=== PATIENT | male | born 1930 | race Caucasian/White ===

== ENCOUNTER 2017-07-09 09:12 | Inpatient (IN) | payer MEDICARE, OTHER ==
[~2017-07-09] VITALS: Ht 165.1 cm; Wt 57.0 kg
[2017-07-09] VITALS (15 sets, daily range): BP systolic 78–119; BP diastolic 47–59; PULSE 57–173; RESP 16–24; TEMP 97.6–98; O2SAT 98–100
[2017-07-09] MEDS ORDERED: AMIODARONE HCL 150 MG/3 ML VIAL ONE (09:22)
[2017-07-09] MEDS: AMIODARONE HCL 150 MG/3 ML VIAL ONE (09:23)
[2017-07-09] MEDS ORDERED: ETOMIDATE 40 MG/20 ML VIAL ONE (09:26)
[2017-07-09] MEDS ORDERED: VECURONIUM BROMIDE 10 MG VIAL ONE (09:27)
[2017-07-09] MEDS ORDERED: SODIUM CHLOR 0.9% 1000 ML INJ 1,000 ML IV ONE (09:29)
[2017-07-09] MEDS ORDERED: SODIUM CHLORIDE 0.9% FLUSH 10 ML FLUSH IVF PRN ×2 (09:30→10:30)
[2017-07-09] MEDS: AMIODARONE INJ 150 MG in DEXTROSE 5% IN WATER 100ML INJ 97 ML IV ONE ×4 (09:35→10:21)
--- NOTE | 2017-07-09 09:36 | PD ---
HPI Chief Complaint: Cardiac Complaint Time Seen by Provider: 09:29 Travel History International Travel<30 days: No Contact w/Intl Traveler<30days: No Traveled to known affect area: No History of Present Illness HPI 86-year-old fdc patient presents to the ER today brought in by EMS, apparently has been complaining of palpitations, shaking episodes, and EMS found that he was going into SVTs, had initially give him adenosine without significant improvement, cardioverted him with some improvement. However, he continues to go into SVTs in the ER the rate of 180 bpm. An additional cardioversion was done in the ER. However, he continues to have intermittent episodes and amiodarone 150 was given in the ER with improvement of dysrhythmias. After the amiodarone, patient was able to talk to me and states he is feeling better. Modifying Factors: None Associated Signs & Symptoms: Tachydysrhythmia Risk Factors: Elderly PFSH Past Medical History Medical History: Unable to Obtain Arthritis: No Asthma: No Autoimmune Disease: No Heart Rhythm Problems: No Cardiovascular Problems: No High Cholesterol: No Chest Pain: No Congestive Heart Failure: No COPD: No Cerebrovascular Accident: No GERD: No Headaches: No Hepatitis: No Hiatal Hernia: No Hypertension: No Neurologic: No Respiratory: No Myocardial Infarction: No Seizures: No Sleep Apnea: No Ulcer: No Past Surgical History Surgical History: Unable to Obtain Abdominal Surgery: No AICD: No Cardiac Surgery: No Ear Surgery: No Endocrine Surgery: No Eye Surgery: No Genitourinary Surgery: No Gynecologic Surgery: No Oral Surgery: No Pacemaker: No Thoracic Surgery: No Social History Alcohol Use: No Tobacco Use: No Substance Use: No Allergies-Medications (Allergen,Severity, Reaction): Coded Allergies: No Known Allergies (Verified Allergy, Severe, 07/09/17) Reported Meds & Prescriptions Reported Meds & Active Scripts Active Reported Hydrocodone-Acetaminophen 5-300 Mg Tab 1 Tab PO Q6H PRN Sulfamethoxazole-Trimethoprim 800-160 Mg Tab 1 Tab PO BID Amoxicillin 500 Mg Cap 500 Mg PO Q12HR Ondansetron (Ondansetron HCl) 4 Mg Tab 4 Mg PO Q6HR PRN Feosol (Ferrous Sulfate) 325 Mg (65 Mg Iron) Tab 650 Mg PO BIDPC Levothyroxine (Levothyroxine Sodium) 25 Mcg Tab 25 Mcg PO DAILY Dutasteride-Tamsulosin 0.5-0.4 Mg Cap 1 Cap PO DAILY Metoprolol Tartrate 25 Mg Tab 12.5 Mg PO BID Atorvastatin (Atorvastatin Calcium) 10 Mg Tab 10 Mg PO HS Midodrine 10 Mg Tab 10 Mg PO BID Imatinib (Imatinib Mesylate) 100 Mg Tab 400 Mg PO DAILY Colace (Docusate Sodium) 100 Mg Capsule 100 Mg PO BID PRN Clopidogrel (Clopidogrel Bisulfate) 75 Mg Tab 75 Mg PO DAILY Review of Systems ROS Limitations: Altered Mental Status (Status post Versed by EMS) Physical Exam Narrative GENERAL: Well-developed elderly white male patient currently and moderate distress, mildly disoriented but arousable after medications, able to answer some question although it is uncertain whether he is a reliable historian. SKIN: Focused skin assessment warm/dry. HEAD: Atraumatic. Normocephalic. EYES: Pupils equal and round. No scleral icterus. No injection or drainage. ENT: No nasal bleeding or discharge. Mucous membranes pink and moist. NECK: Trachea midline. No JVD. CARDIOVASCULAR: Fast and regular. RESPIRATORY: No accessory muscle use. Clear to auscultation. Breath sounds equal bilaterally. GASTROINTESTINAL: Abdomen soft, non-tender, nondistended. Hepatic and splenic margins not palpable. MUSCULOSKELETAL: No obvious deformities. No clubbing. No cyanosis. No edema. NEUROLOGICAL: Awake and mildly lethargic. No obvious cranial nerve deficits. Motor grossly within normal limits. Normal speech. PSYCHIATRIC: Appropriate mood and affect; insight and judgment normal. Data Data Last Documented VS Vital Signs Date Time Temp Pulse Resp B/P (MAP) Pulse Ox O2 Delivery O2 Flow Rate FiO2 07/09/17 10:16 18 100 Nasal Cannula 4.00 07/09/17 09:23 166 76/37 Orders Orders Amiodarone Inj (Cordarone Inj) (07/09/17 09:22) Amiodarone Inj (Cordarone Inj) (07/09/17 09:23) Etomidate Inj (Amidate Inj) (07/09/17 09:26) Vecuronium 10 Mg Inj (Norcuron 10 Mg Inj (07/09/17 09:27) Complete Blood Count With Diff (07/09/17 09:29) Comprehensive Metabolic Panel (07/09/17 09:29) Magnesium (Mg) (07/09/17 09:29) Ckmb (Isoenzyme) Profile (07/09/17:29) Troponin I (07/09/17:29) Act Partial Throm Time (Ptt) (07/09/17:) Prothrombin Time / Inr (Pt) (07/09/17:) Chest, Single Ap (07/09/17:) Blood Glucose (07/09/17:29) Ecg Monitoring (07/09/17:) Iv Access Insert/Monitor (07/09/17) Oximetry (07/09/17:) Sodium Chloride 0.9% Flush (Ns Flush) (07/09/17:30) Sodium Chlor 0.9% 1000 Ml Inj (Ns 1000 M (07/09/17:) Arterial Blood Gas (Abg) (07/09/17:28) Dextrose 5% In Wate... W/Amiodarone Inj (07/09/17 10:21) Sodium Chloride 0.9% Flush (Ns Flush) (07/09/17 10:30) Admit Order (Ed Use Only) (07/09/17 10:43) CKMB (07/09/17 09:30) CKMB% (07/09/17:30) Labs Laboratory Tests Test 07/09/1707/09/17 Blood Gas Puncture Site LT RADIAL Blood Gas Patient Temperature 98.6 Blood Gas HCO3 22 mmol/L Blood Gas Base Excess -2.1 mmol/L Blood Gas Oxygen Saturation 98 % Arterial Blood pH 7.40 Arterial Blood Partial Pressure CO2 37 mmHg Arterial Blood Partial Pressure O2 395 mmHG Arterial Blood Oxygen Content 15.1 Vol % Arterial Blood Carboxyhemoglobin 0.9 % Arterial Blood Methemoglobin 0.8 % Blood Gas Hemoglobin 10.2 G/DL Oxygen Delivery Device Non-Rebreathing Mask Blood Gas Liter Flow 15 L/M White Blood Count 6.0 TH/MM3 Red Blood Count 3.27 MIL/MM3 Hemoglobin 11.0 GM/DL Hematocrit 32.3 % Mean Corpuscular Volume 98.8 FL Mean Corpuscular Hemoglobin 33.7 PG Mean Corpuscular Hemoglobin Concent 34.1 % Red Cell Distribution Width 17.6 % Platelet Count 178 TH/MM3 Mean Platelet Volume 8.8 FL Neutrophils (%) (Auto) 58.7 % Lymphocytes (%) (Auto) 22.7 % Monocytes (%) (Auto) 10.2 % Eosinophils (%) (Auto) 7.7 % Basophils (%) (Auto) 0.7 % Neutrophils # (Auto) 3.5 TH/MM3 Lymphocytes # (Auto) 1.4 TH/MM3 Monocytes # (Auto) 0.6 TH/MM3 Eosinophils # (Auto) 0.5 TH/MM3 Basophils # (Auto) 0.0 TH/MM3 CBC Comment DIFF FINAL Differential Comment Prothrombin Time 11.5 SEC Prothromb Time International Ratio 1.1 RATIO Activated Partial Thromboplast Time 25.0 SEC Blood Urea Nitrogen 16 MG/DL Creatinine 1.85 MG/DL Random Glucose 111 MG/DL Total Protein 5.8 GM/DL Albumin 2.6 GM/DL Calcium Level 8.2 MG/DL Magnesium Level 2.0 MG/DL Alkaline Phosphatase 118 U/L Aspartate Amino Transf (AST/SGOT) 67 U/L Alanine Aminotransferase (ALT/SGPT) 57 U/L Total Bilirubin 0.4 MG/DL Sodium Level 138 MEQ/L Potassium Level 3.7 MEQ/L Chloride Level 103 MEQ/L Carbon Dioxide Level 25.0 MEQ/L Anion Gap 10 MEQ/L Estimat Glomerular Filtration Rate 35 ML/MIN Total Creatine Kinase 190 U/L Creatine Kinase MB 4.5 NG/ML Troponin I 0.04 NG/ML MDM Medical Decision Making Medical Screen Exam Complete: Yes Emergency Medical Condition: Yes Medical Record Reviewed: Yes Interpretation(s) Initial EKG shows a narrow complex tachycardia at a rate of 170 bpm. No signs of acute ST elevations or depressions. Secondary EKG shows A. fib with rapid ventricular response at 100 bpm. No signs of acute ST elevations or depressions. Laboratory Tests Test 07/09/17 09:28 07/09/17 09:30 Blood Gas Base Excess -2.1 mmol/L (-2-2) Arterial Blood Partial Pressure CO2 37 mmHg (38-42) Arterial Blood Partial Pressure O2 395 mmHG (61-120) Blood Gas Hemoglobin 10.2 G/DL (12.0-16.0) Red Blood Count 3.27 MIL/MM3 (4.50-5.90) Hemoglobin 11.0 GM/DL (13.0-17.0) Hematocrit 32.3 % (39.0-51.0) Red Cell Distribution Width 17.6 % (11.6-17.2) Monocytes (%) (Auto) 10.2 % (0.0-8.0) Eosinophils (%) (Auto) 7.7 % (0.0-4.0) Eosinophils # (Auto) 0.5 TH/MM3 (0-0.4) Creatinine 1.85 MG/DL (0.60-1.30) Random Glucose 111 MG/DL (74-106) Total Protein 5.8 GM/DL (6.4-8.2) Albumin 2.6 GM/DL (3.4-5.0) Calcium Level 8.2 MG/DL (8.5-10.1) Alkaline Phosphatase 118 U/L (45-117) Aspartate Amino Transf (AST/SGOT) 67 U/L (15-37) Estimat Glomerular Filtration Rate 35 ML/MIN (>89) Last 24 hours Impressions Chest X-Ray 07/09/17 0936 Signed Impressions: Service Date/Time: Sunday, July 09, 2017 09:33 - CONCLUSION: Interstitial densities left upper lobe and left lower lobe could be chronic Ronni East MD Differential Diagnosis Tachydysrhythmia: Rule out electrolyte abnormalities versus sepsis versus dehydration Narrative Course After amiodarone, patient's heart rate was more stable. At this point, case was discussed with Dr. Prakash of intensive care unit to be admitted to ICU. Labs did not show significant metabolic issues. I have discussed the findings with family and they state understanding. Aggregate critical care time was 35 minutes. Time to perform other separately billable procedures was not included in the critical care time. My time did not include minutes spent treating any other patients simultaneously or on activities that did not directly contribute to the patient's treatment. The services I provided to this patient were to treat and/or prevent clinically significant deterioration that could result in: Tachydysrhythmia, cardiopulmonary arrest, respiratory arrest, I provided critical care services requiring my management, as noted below: Chart data review, documentation time, medication orders and management, vital sign assessments/reviewing monitor data, ordering and reviewing lab tests, ordering and interpreting/reviewing x-rays and diagnostic studies, care of the patient and discussion of the patient with the admitting physicians. Diagnosis Primary Impression: Tachyarrhythmia Admitting Information Admitting Physician Requests: it Mitchell Gipson MD Jul 09, 2017 09:36
--- NOTE | 2017-07-09 09:57 | RADRPT ---
EXAM DATE/TIME: 07/09/2017 09:33 [facility] COMPARISON: No previous studies available for comparison. INDICATIONS : Palpitations, irregular heart beat. MEDICAL HISTORY : none known SURGICAL HISTORY : none known ENCOUNTER: Initial ACUITY: 1 day PAIN SCORE: Non-responsive. LOCATION: Bilateral chest FINDINGS: A single view of the chest demonstrates interstitial seen in left upper lobe and left lower lobe. Loo p recorder device. Diminished lung volumes. The cardiomediastinal contours are unremarkable. Osseous structures are intact. CONCLUSION: Interstitial densities left upper lobe and left lower lobe could be chronic Ronni East MD on July 09, 2017 at 9:52 Board Certified Radiologist. This report was verified electronically.
[2017-07-09] MEDS ORDERED: METO25TA3 PO (10:36)
[2017-07-09] MEDS ORDERED: DUTA1CAP PO (10:36)
[2017-07-09] MEDS ORDERED: MIDO10TA PO (10:36)
[2017-07-09] MEDS ORDERED: LEVO25TA4 PO (10:36)
[2017-07-09] MEDS ORDERED: COLA100C5 PO (10:36)
[2017-07-09] MEDS ORDERED: ATOR10TA15 PO (10:36)
[2017-07-09] MEDS ORDERED: ONDA4TAB15 PO (10:36)
[2017-07-09] MEDS ORDERED: CLOP75TA PO (10:36)
[2017-07-09] MEDS ORDERED: FERR200T PO (10:36)
[2017-07-09] MEDS ORDERED: IMAT1TAB PO (10:36)
[2017-07-09] MEDS ORDERED: SULF1TAB23 PO (10:36)
[2017-07-09] MEDS ORDERED: AMOX500C PO (10:36)
[2017-07-09] MEDS ORDERED: HYDR-4107 PO (10:36)
[2017-07-09 10:40] LABS: AUTOMATED NEUTROPHIL # 3.5 TH/MM3 (1.8-7.7); BASOPHIL % 0.7 % (0.0-2.0); EOSINOPHIL # 0.5 TH/MM3 (0-0.4); EOSINOPHIL % 7.7 % (0.0-4.0); HEMATOCRIT 32.3 % (39.0-51.0); LYMPH % 22.7 % (9.0-44.0); LYMPHOCYTE # 1.4 TH/MM3 (1.0-4.8); MEAN CELL VOLUME 98.8 FL (80.0-100.0); MEAN CORPUSCULAR HEMOGLOBIN 33.7 PG (27.0-34.0); MEAN CORPUSCULAR HGB CONC 34.1 % (32.0-36.0); MEAN PLATELET VOLUME 8.8 FL (7.0-11.0); MONO % 10.2 % (0.0-8.0); MONOCYTE # 0.6 TH/MM3 (0-0.9); NEUT % 58.7 % (16.0-70.0); PLATELET COUNT 178 TH/MM3 (150-450); RED BLOOD COUNT 3.27 MIL/MM3 (4.50-5.90); RED CELL DISTRIBUTION WIDTH 17.6 % (11.6-17.2)
[2017-07-09] MEDS ORDERED: RESP: ALBUTEROL 2.5 MG/IPRATROPIUM 0.5 MG NEB (PRN) INH (10:45)
[2017-07-09] MEDS ORDERED: MISCELLANEOUS NURSING INFORMATION XX SCH (10:45)
[2017-07-09] MEDS ORDERED: CHLORHEXIDINE GLUCONATE 2 % 1 PACK (2 CLOTHS) TOP PRN (10:45)
[2017-07-09] MEDS ORDERED: BISACODYL 10 MG SUPP RECTAL PRN (10:45)
[2017-07-09] MEDS ORDERED: MAGNESIUM HYDROXIDE SUSP 30 ML CUP PO PRN (10:45)
[2017-07-09] MEDS ORDERED: LACTULOSE SYRUP 20 GM/30 ML CUP PO PRN (10:45)
[2017-07-09] MEDS ORDERED: ACETAMINOPHEN 325 MG TAB PO PRN (10:45)
[2017-07-09] MEDS ORDERED: SENNOSIDES 8.6 MG TAB PO PRN (10:45)
[2017-07-09 10:55] LABS: INTERNATIONAL NORMALIZED RATIO 1.1 RATIO; PROTHROMBIN TIME - PATIENT 11.5 SEC (9.8-11.6)
[2017-07-09 11:02] LABS: ALBUMIN 2.6 GM/DL (3.4-5.0); ALT (GPT) 57 U/L (12-78); AST (GOT) 67 U/L (15-37); BLOOD UREA NITROGEN 16 MG/DL (7-18); CALCIUM 8.2 MG/DL (8.5-10.1); CHLORIDE 103 MEQ/L (98-107); CREATININE 1.85 MG/DL (0.60-1.30); GLOMERULAR FILTRATION RATE 35 ML/MIN (>89); GLUCOSE,RANDOM 111 MG/DL (74-106); SODIUM (NA) 138 MEQ/L (136-145)
[2017-07-09 11:11] LABS: ALKALINE PHOSPHATASE 118 U/L (45-117); TOTAL BILIRUBIN ADULT 0.4 MG/DL (0.2-1.0); TOTAL PROTEIN 5.8 GM/DL (6.4-8.2); TROPONIN I 0.04 NG/ML (0.02-0.05)
[2017-07-09] MEDS ORDERED: PILL SPLITTER OTHER PRN (11:30)
[2017-07-09] MEDS: SODIUM CHLOR 0.9% 1000 ML INJ 1,000 ML IV SCH (12:00)
[2017-07-09] MEDS: AMIODARONE INJ 450 MG in SODIUM CHLOR 0.9% (EXCEL) INJ 250 ML IV PRN ×2 (13:10→22:06)
--- NOTE | 2017-07-09 13:26 | HHI.HP ---
HPI Service Critical Care Medicine Primary Care Physician Lizzeth Garcia MD Admission Diagnosis Tachydysrhythmia Diagnosis: Travel History International Travel<30 Days: No Contact w/Intl Traveler <30 Da: No Traveled to Known Affected Are: No History of Present Illness History of Present Illness HPI This is a 86-year-old male that presented from [facility], an assisted living facility to the ED today brought in by EMS, apparently has been complaining of palpitations, shaking episodes, and EMS found that he was going into SVTs. He received adenosine without significant improvement, cardioverted x 1 reportedly to Afib. The patient continued to revert into SVTs in the ED with the rate of 180 bpm. An additional cardioversion was done in the ER. However, he continued to have intermittent episodes and amiodarone 150mg bolus was given in the ED with improvement of dysrhythmias. Critical care medicine was consulted for management. Upon my arrival to the ED the patient was noted to be in sinus rhythm with a heart rate of 70 and a BP 107/59. Medical history obtained by patient's 2 sons at bedside revealed that the patient has had issues with heart rate control for the past 3 months with adjustments of his metoprolol medication. He is well known patient of Dr. Kumari, cardiology. Recently 1 week ago, Dr. Moreau, EPS was consulted for possible ablation. 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 The patient medical history also significant for recent diagnosis of TIAs 04/2017, and continues on aspirin and Plavix. The patient medical history also significant for leukemia currently on Gleevec and seen by Dr. Rich, recently diagnosed with hypothyroidism approximately 1 month ago and was started on Synthroid. The patient will be admitted to ICU. I contacted and discussed the case patient will be initiated on amiodarone infusion, cardiology has also been consulted History ON LICENSE OF [facility] Past Medical History Medical History: Unable to Obtain Arthritis: No Asthma: No Autoimmune Disease: No Heart Rhythm Problems: No Cardiovascular Problems: No High Cholesterol: No Chest Pain: No Congestive Heart Failure: No COPD: No Cerebrovascular Accident: No GERD: No Headaches: No Hepatitis: No Hiatal Hernia: No Hypertension: No Neurologic: No Respiratory: No Myocardial Infarction: No Seizures: No Sleep Apnea: No Ulcer: No Past Surgical History Surgical History: Unable to Obtain Abdominal Surgery: No AICD: No Cardiac Surgery: No Ear Surgery: No Endocrine Surgery: No Eye Surgery: No Genitourinary Surgery: No Gynecologic Surgery: No Oral Surgery: No Pacemaker: No Thoracic Surgery: No Social History Alcohol Use: No Tobacco Use: No Substance Use: No Allergies-Medications Allergies-Medications (Allergen,Severity, Reaction): Coded Allergies: No Known Allergies (Verified Allergy, Severe, 07/09/17) Reported Meds & Prescriptions Reported Meds & Active Scripts Active Reported Hydrocodone-Acetaminophen 5-300 Mg Tab 1 Tab PO Q6H PRN Sulfamethoxazole-Trimethoprim 800-160 Mg Tab 1 Tab PO BID Amoxicillin 500 Mg Cap 500 Mg PO Q12HR Ondansetron (Ondansetron HCl) 4 Mg Tab 4 Mg PO Q6HR PRN Feosol (Ferrous Sulfate) 325 Mg (65 Mg Iron) Tab 650 Mg PO BIDPC Levothyroxine (Levothyroxine Sodium) 25 Mcg Tab 25 Mcg PO DAILY Dutasteride-Tamsulosin 0.5-0.4 Mg Cap 1 Cap PO DAILY Metoprolol Tartrate 25 Mg Tab 12.5 Mg PO BID Atorvastatin (Atorvastatin Calcium) 10 Mg Tab 10 Mg PO HS Midodrine 10 Mg Tab 10 Mg PO BID Imatinib (Imatinib Mesylate) 100 Mg Tab 400 Mg PO DAILY Colace (Docusate Sodium) 100 Mg Capsule 100 Mg PO BID PRN Clopidogrel (Clopidogrel Bisulfate) 75 Mg Tab 75 Mg PO DAILY ROS Review of Systems ROS Limitations: Altered Mental Status (Status post Versed by EMS) Past Family Social History Allergies: Coded Allergies: No Known Allergies (Verified Allergy, Severe, 07/09/17) Past Medical History Hypertension, macular degeneration, dry eye syndrome, transient ischemic attacks , leukemia, anemia, cardiac arrhythmias, MRSA left flank wound Past Surgical History Right shoulder surgery, right ankle/foot surgery Reported Medications Reviewed Active Ordered Medications see MAR Family History Unable to obtain Social History Patient lives in assisted living facility, has 2 sons, denies EtOH, smoking or illicit drug use Physical Exam Vital Signs Vital Signs Date Time Temp Pulse Resp B/P (MAP) Pulse Ox O2 Delivery O2 Flow Rate FiO2 07/09/17 12:30 60 16 106/56 (73) 100 Room Air 07/09/17 12:00 62 18 112/59 (76) 99 Nasal Cannula 07/09/17 11:30 64 16 107/59 (75) 98 Nasal Cannula 07/09/17 11:00 64 16 103/52 (69) 100 Nasal Cannula 07/09/17 10:30 68 18 101/55 (70) 100 Nasal Cannula 07/09/17 10:16 18 100 Nasal Cannula 4.00 07/09/17 10:00 76 16 85/49 (61) 100 07/09/17 09:23 166 76/37 07/09/17 09:13 173 24 78/47 (57) 07/09/17 09:00 98 15.00 07/09/17 09:00 Nasal Cannula 4.00 Physical Exam GENERAL: This is a well-developed well-nourished chronically ill-appearing elderly gentleman. SKIN: Warm and dry. Dressing left flank pre-existing wound, appearance stage I HEAD: Atraumatic. Normocephalic. EYES: Pupils equal and round. No scleral icterus. No injection. Bilateral eyes crusted yellow drainage drainage. ENT: No nasal bleeding or discharge. Mucous membranes pink and moist. NECK: Trachea midline. No JVD. CARDIOVASCULAR: Normal rate, regular rhythm. Telemetry currently showing normal sinus rhythm RESPIRATORY: No accessory muscle use. Clear to auscultation. Breath sounds equal bilaterally. 2 L nasal cannula. Bilateral chest excursion GASTROINTESTINAL: Abdomen soft, non-tender, nondistended. No guarding. Bowel sounds active MUSCULOSKELETAL: Extremities without clubbing, cyanosis, or edema. No obvious deformities. Dressing on lateral right ankle NEUROLOGICAL: Awake and alert. RASS 0. No gross focal/sensory deficits. Follows commands in all 4 extremities. Motor strength 5/5 bilateral upper and lower extremities. Laboratory Laboratory Tests Test 07/09/17 09:28 07/09/17 09:30 Blood Gas Puncture Site LT RADIAL Blood Gas Patient Temperature 98.6 Blood Gas HCO3 22 Blood Gas Base Excess -2.1 Blood Gas Oxygen Saturation 98 Arterial Blood pH 7.40 Arterial Blood Partial Pressure CO2 37 Arterial Blood Partial Pressure O2 395 Arterial Blood Oxygen Content 15.1 Arterial Blood Carboxyhemoglobin 0.9 Arterial Blood Methemoglobin 0.8 Blood Gas Hemoglobin 10.2 Oxygen Delivery Device Non-Rebreathing Mask Blood Gas Liter Flow 15 White Blood Count 6.0 Red Blood Count 3.27 Hemoglobin 11.0 Hematocrit 32.3 Mean Corpuscular Volume 98.8 Mean Corpuscular Hemoglobin 33.7 Mean Corpuscular Hemoglobin Concent 34.1 Red Cell Distribution Width 17.6 Platelet Count 178 Mean Platelet Volume 8.8 Neutrophils (%) (Auto) 58.7 Lymphocytes (%) (Auto) 22.7 Monocytes (%) (Auto) 10.2 Eosinophils (%) (Auto) 7.7 Basophils (%) (Auto) 0.7 Neutrophils # (Auto) 3.5 Lymphocytes # (Auto) 1.4 Monocytes # (Auto) 0.6 Eosinophils # (Auto) 0.5 Basophils # (Auto) 0.0 CBC Comment DIFF FINAL Differential Comment Prothrombin Time 11.5 Prothromb Time International Ratio 1.1 Activated Partial Thromboplast Time 25.0 Blood Urea Nitrogen 16 Creatinine 1.85 Random Glucose 111 Total Protein 5.8 Albumin 2.6 Calcium Level 8.2 Magnesium Level 2.0 Alkaline Phosphatase 118 Aspartate Amino Transf (AST/SGOT) 67 Alanine Aminotransferase (ALT/SGPT) 57 Total Bilirubin 0.4 Sodium Level 138 Potassium Level 3.7 Chloride Level 103 Carbon Dioxide Level 25.0 Anion Gap 10 Estimat Glomerular Filtration Rate 35 Total Creatine Kinase 190 Creatine Kinase MB 4.5 Troponin I 0.04 Result Diagram: 07/09/1792907/09/17929 Imaging Last Impressions Chest X-Ray 07/09/17928 Signed Impressions: Service Date/Time: Sunday, July 09, 2017 09:33 - CONCLUSION: Interstitial densities left upper lobe and left lower lobe could be chronic Ronni East MD Septic Shock Reassessment Septic shock perfusion: reassessment completed Caprini VTE Risk Assessment Caprini VTE Risk Assessment: No/Low Risk (score <= 1) Caprini Risk Assessment Model Point Value = 1 Point Value = 2 Point Value = 3 Point Value = 5 Age 41-60 Minor surgery BMI > 25 kg/m2 Swollen legs Varicose veins or History of unexplained or recurrent spontaneous Oral contraceptives or hormone replacement Sepsis (< 1 month) Serious lung disease, including pneumonia (< 1 month) Abnormal pulmonary function Acute myocardial infarction Congestive heart failure (< 1 month) History of inflammatory bowel disease Medical patient at bed rest Age 61-74 Arthroscopic surgery Major open surgery (> 45 min) Laparoscopic surgery (> 45 min) Malignancy Confined to bed (> 72 hours) Immobilizing plaster cast Central venous access Age >= 75 History of VTE Family history of VTE Factor V Leiden Prothrombin [id number] Lupus anticoagulant Anticardiolipin antibodies Elevated serum homocysteine Heparin-induced thrombocytopenia Other congenital or acquired thrombophilia Stroke (< 1 month) Elective arthroplasty Hip, pelvis, or leg fracture Acute spinal cord injury (< 1 month) Prophylaxis Regimen Total Risk Factor Score Risk Level Prophylaxis Regimen 0-1 Low Early ambulation 2 Moderate Order ONE of the following: *Sequential Compression Device (SCD) *Heparin 5000 units SQ BID 3-4 Higher Order ONE of the following medications: *Heparin 5000 units SQ TID *Enoxaparin/Lovenox 40 mg SQ daily (WT < 150 kg, CrCl > 30 mL/min) *Enoxaparin/Lovenox 30 mg SQ daily (WT < 150 kg, CrCl > 10-29 mL/min) *Enoxaparin/Lovenox 30 mg SQ BID (WT < 150 kg, CrCl > 30 mL/min) AND/OR *Sequential Compression Device (SCD) 5 or more Highest Order ONE of the following medications: *Heparin 5000 units SQ TID (Preferred with Epidurals) *Enoxaparin/Lovenox 40 mg SQ daily (WT < 150 kg, CrCl > 30 mL/min) *Enoxaparin/Lovenox 30 mg SQ daily (WT < 150 kg, CrCl > 10-29 mL/min) *Enoxaparin/Lovenox 30 mg SQ BID (WT < 150 kg, CrCl > 30 mL/min) AND *Sequential Compression Device (SCD) Assessment and Plan Problem List: (1) Macular degeneration of both eyes ICD Code: H35.30 - Unspecified macular degeneration Status: Chronic (2) Hypothyroidism ICD Code: E03.9 - Hypothyroidism, unspecified Status: Chronic (3) Anemia ICD Code: D64.9 - Anemia, unspecified Status: Chronic (4) Leukemia ICD Code: C95.90 - Leukemia, unspecified not having achieved remission Status: Chronic (5) TIA (transient ischemic attack) ICD Code: G45.9 - Transient cerebral ischemic attack, unspecified Status: Chronic (6) Tachyarrhythmia ICD Code: R00.0 - Tachycardia, unspecified Status: Acute Assessment and Plan Assessment This is an 86 year old male with a recent history of SVT, under 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 Patient status post synchronized cardioversion 2-ineffective, amiodarone bolus of 150 mg 1. Will initiate amiodarone infusion as per EPS recommendations, and await recommendations from Dr. Moreau, EPS and cardiology. Admit to ICU. Plan Plan by systems: Neurologic: Macular degeneration Dry eye syndrome Chronic pain syndrome right foot Respiratory: Maintain O2 sat 92% provide O2 via nasal cannula 1-4 L/min Incentive spirometry while awake Duo nebs every 4 hours as needed for wheezing Cardiovascular: Paroxysmal SVT Patient under the care of Dr. Kumari Cardiology consulted EPS consulted-Case discussed with Dr. Moreau. She has [facility] loop recorder 07/09 S/P cardioversion 2, amiodarone bolus 150 mg Obtain EKG-post cardioversion Initiate amiodarone infusion Telemetry sinus rhythm Patient previously on metoprolol 12.5 mg twice daily-we will hold for now in the setting of low normal blood pressure and normal sinus rhythm Patient's home meds include Plavix 75 mg/day, atorvastatin 10 mg/at bedtime, Midrin 10 mg twice daily-continued Renal: No indication for Frye at this time -- Strict I/Os FEN/GI: Nausea IV normal saline 42 cc/hr, gentle hydration Obtain formal swallow-begin diet Patient on Zofran 4 mg every 6 hours p.o. at home to be continued Heme/ID: Leukemia H/O MRSA left flank wound Anemia Continue Imatinib home medication Patient received 1 unit packed red blood cells last week at [facility] secondary to anemia Continue to monitor CBC Patient's senior it architect-Dr. Ornelas Continue home medication ferrous sulfate 325 mg twice daily Endocrine: Hypothyroidism Continue levothyroxine 25 mics/day -- SSI Prophylaxis: GI Prophylaxis Famotidine DVT Prophylaxis -- SCDs Lines: Peripheral IVs 2. Central line if indicated Dispo: my billing statement This patient remains critically ill with one or more organ systems which are or may become a threat to life. I have spent in excess of 49 minutes discontinuously in the care and management of this patient. This time is exclusive of procedures, and includes, but is not limited to, evaluation of the patient, review of the medical record, discussions with family, consultants, nursing staff, or respiratory therapy, and documentation in the medical record. Extensive discussion with sons at bedside-requests continue aggressive measures. Patient and family request full CODE STATUS. All questions answered Code Status Full Discussed Condition With 2 sons at bedside, Dr. Moreau, Dr. Galvan and ED RN at bedside Cynthia Prakash MD Jul 09, 2017 13:26
[2017-07-09] MEDS: FERROUS SULFATE 325 MG (65 MG ELEMENTAL IRON) TAB PO SCH (17:30)
[2017-07-09] MEDS: DOCUSATE SODIUM 50 MG/SENNA 8.6 MG TAB PO SCH (21:00)
[2017-07-09] MEDS: SODIUM CHLORIDE 0.9% FLUSH 10 ML FLUSH IV FLUSH SCH (21:02)
[2017-07-09] MEDS: FAMOTIDINE 20 MG TAB PO SCH (21:03)
[2017-07-09] MEDS: MIDODRINE 5 MG TAB PO SCH (21:04)
[2017-07-09] MEDS: ATORVASTATIN 10 MG TAB PO SCH (21:04)
[2017-07-10] VITALS (12 sets, daily range): BP systolic 121–148; BP diastolic 58–67; PULSE 58–93; RESP 14–20; TEMP 97.8–98.6; O2SAT 96–99
[2017-07-10 01:13] LABS: TROPONIN I 0.21 NG/ML (0.02-0.05)
[2017-07-10] MEDS: CHLORHEXIDINE GLUCONATE 2 % 1 PACK (2 CLOTHS) TOP SCH (04:00)
[2017-07-10] MEDS: LEVOTHYROXINE SODIUM 25 MCG TAB PO SCH (05:02)
[2017-07-10 05:44] LABS: AUTOMATED NEUTROPHIL # 3.7 TH/MM3 (1.8-7.7); BASOPHIL % 0.5 % (0.0-2.0); EOSINOPHIL # 0.4 TH/MM3 (0-0.4); HEMATOCRIT 31.1 % (39.0-51.0); HEMOGLOBIN 10.6 GM/DL (13.0-17.0); LYMPH % 17.2 % (9.0-44.0); MEAN CELL VOLUME 98.8 FL (80.0-100.0); MEAN CORPUSCULAR HEMOGLOBIN 33.8 PG (27.0-34.0); MEAN CORPUSCULAR HGB CONC 34.2 % (32.0-36.0); MEAN PLATELET VOLUME 8.6 FL (7.0-11.0); MONOCYTE # 0.6 TH/MM3 (0-0.9); NEUT % 64.3 % (16.0-70.0); PLATELET COUNT 168 TH/MM3 (150-450); RED BLOOD COUNT 3.15 MIL/MM3 (4.50-5.90); RED CELL DISTRIBUTION WIDTH 17.3 % (11.6-17.2); WHITE BLOOD COUNT 5.7 TH/MM3 (4.0-11.0)
[2017-07-10 05:47] LABS: INTERNATIONAL NORMALIZED RATIO 1.1 RATIO; PROTHROMBIN TIME - PATIENT 11.4 SEC (9.8-11.6)
[2017-07-10 06:08] LABS: ALBUMIN 2.5 GM/DL (3.4-5.0); ALT (GPT) 54 U/L (12-78); AST (GOT) 58 U/L (15-37); BLOOD UREA NITROGEN 20 MG/DL (7-18); CALCIUM 8.4 MG/DL (8.5-10.1); CHLORIDE 106 MEQ/L (98-107); CREATININE 1.51 MG/DL (0.60-1.30); GLOMERULAR FILTRATION RATE 44 ML/MIN (>89); GLUCOSE,RANDOM 75 MG/DL (74-106); MAGNESIUM 1.9 MG/DL (1.5-2.5); SODIUM (NA) 138 MEQ/L (136-145)
[2017-07-10 06:17] LABS: ALKALINE PHOSPHATASE 112 U/L (45-117); PHOSPHORUS 2.8 MG/DL (2.5-4.9); TOTAL BILIRUBIN ADULT 0.3 MG/DL (0.2-1.0); TOTAL PROTEIN 5.7 GM/DL (6.4-8.2)
[2017-07-10] MEDS: MIDODRINE 5 MG TAB PO SCH ×2 (08:58→20:32)
[2017-07-10] MEDS: DOCUSATE SODIUM 50 MG/SENNA 8.6 MG TAB PO SCH ×2 (08:58→20:33)
[2017-07-10] MEDS: CLOPIDOGREL 75 MG TAB PO SCH (08:58)
[2017-07-10] MEDS: FAMOTIDINE 20 MG TAB PO SCH ×2 (08:58→20:33)
[2017-07-10] MEDS: SODIUM CHLORIDE 0.9% FLUSH 10 ML FLUSH IV FLUSH SCH ×2 (08:58→20:33)
[2017-07-10] MEDS: FERROUS SULFATE 325 MG (65 MG ELEMENTAL IRON) TAB PO SCH ×2 (08:58→17:38)
[2017-07-10] MEDS: [UNRECOGNIZED DRUG - OTHER] PO SCH (09:00)
[2017-07-10] MEDS ORDERED: [UNRECOGNIZED DRUG - OTHER] PO SCH (09:00)
[2017-07-10] MEDS ORDERED: IMATINIB 400 MG PO SCH (09:00)
--- NOTE | 2017-07-10 09:01 | MB ---
cc: Shirlene Moreau MD,Cynthia Hayden,Dacia Yoo MD DATE: 07/09/2017 REFERRING PHYSICIAN: Dr. Prakash and Dr. Hayden REASON FOR CONSULTATION: Recurrent syncope with episodes of tachycardia. HISTORY OF PRESENT ILLNESS: Ms. Lewis is an 86-year-old gentleman known to me. He has been followed regularly by Dr. Hayden and was noted to have recurrent syncope. He had implantable loop recorder confirmed put in. So far, he was noted to have episodes of tachycardia up to 180. Could be sinus versus ectopic atrial tachycardia. He was recently admitted to the hospital for recurrent syncope. He was started on beta kirstie with midodrine and was sent home. Of note, he does have an open wound with MRSA and has been treated. He does have a TIA in the past. Also, on levothyroxine for hypothyroidism, atorvastatin for hypercholesteremia and Gleevec for CML. Today, he was noted in the dining area, he felt dizzy and passed out. EMS was called. , he was found to have tachycardia. According to the EMS, could be atrial fibrillation and he received 2 cardioversions. He was admitted to the [place] ER, then put on amiodarone drip and admitted to ICU. So far, he did okay on amiodarone drip with heart rate in the 60s. BP borderline, but stable. I reviewed EKG, currently showed sinus. PAST MEDICAL HISTORY: As above. SOCIAL HISTORY: He does not smoke or drink a large amount of alcohol. ALLERGIES: NO KNOWN DRUG ALLERGIES. MEDICATIONS: Including Plavix, levothyroxine, atorvastatin, midodrine and amiodarone drip. PAST SURGICAL HISTORY: As above, also including implantable loop recorder insertion. REVIEW OF SYSTEMS: HEENT: Normal. GASTROINTESTINAL: No nausea or vomiting. GENITOURINARY: No dysuria. MUSCULOSKELETAL: Fatigue. CARDIOVASCULAR: As above. CHEST: Some dyspnea. ENDOCRINE: Normal. SKIN: Normal. PSYCHIATRIC: Normal. 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 PHYSICAL EXAMINATION: VITAL SIGNS: The patient's blood pressure 113/56, with pulse ranging from 64-70s, currently in sinus, on amiodarone drip. Afebrile. HEENT: Normal exam. PERRLA. ENDOCRINE: There is no thyroid enlargement. LYMPHATICS: There is no lymphadenopathy. RESPIRATORY: Decreased breath sounds bilaterally, but no crackles. CARDIOVASCULAR: Regular rhythm. No loud murmurs. Implantable loop recorder was noted to the left upper chest. LUNGS: Clear to auscultation bilaterally. ABDOMEN: Normoactive bowel sounds over 4 quadrants. No tenderness. GENITOURINARY: Deferred. MUSCULOSKELETAL: All range of motion intact. SKIN: The patient does have open wound in the low back. PSYCHIATRIC: The patient in good mood, good judgment. NEUROLOGIC: There is no focal neurologic deficit except for some hearing loss and some vision problem. ASSESSMENT: 1. Episodes of tachycardia, so far, consistent with atrial fibrillation with tachycardia and the patient could have ectopic atrial tachycardia also. 2. Recurrent syncope with hypotension. 3. Hypertension. 4. Hypercholesterolemia. 5. Transient ischemic attack. 6. Chronic myelogenous leukemia treatment. 7. Low back open wound with methicillin-resistant Staphylococcus aureus. PLAN: I do not have the detailed tracing of EMS. So far, overall consistent with possible atrial fibrillation/ectopic atrial tachycardia with hypotension. It is not easy choice as to therapeutic treatment with his comorbidities. It will be tough to do atrial fibrillation ablation. He will be challenging to use anticoagulation pre and post atrial fibrillation ablation, and also with his age and comorbidities, 3-4 hours of general anesthesia will be not easy on the patient also. The other option, consider pacemaker plus AV node ablation, but currently the patient has open wound with MRSA. Hopefully, we can wait at least a few weeks prior to consideration for pacemaker plus AV node ablation. I did discuss other treatment options. He preferred to have a pacemaker plus AV node ablation along with loop recorder removal, but hopefully he can wait until open sore in the back heals prior to consideration for invasive procedure. I do think, in the meantime, we will continue amiodarone drip and switch to p.o. amiodarone tomorrow and see how he does. Again, at this moment, I will not consider anticoagulation with frequent falls and his comorbidities. I think the pacemaker plus AV node ablation would be reasonable once we have the clearance for the brand specialist. I would like to thank Dr. Prakash and Dr. Hayden for letting me participate in the care of this patient. MD WENDI Thornton/LIZETTE , 08:42 PM , 09:48 PM
[2017-07-10] MEDS: AMIODARONE 200 MG TAB PO SCH ×3 (09:37→23:08)
[2017-07-10] MEDS: ONDANSETRON HCL 4 MG/2 ML VIAL IV PUSH PRN (09:54)
--- NOTE | 2017-07-10 10:17 | PD.ID.CON ---
History of Present Illness Service Infectious disease Consult Requested By Dr. Cynthia Prakash Reason for Consult Evaluation and management of possible pacemaker infection recent history of being treated for MRSA skin infection of the back Primary Care Physician Lizzeth Garcia MD Diagnoses: History of Present Illness Mr. Lewis is an 86-year-old male with past medical history significant for CML, anemia of chronic disease, acute on chronic kidney disease , history of orthostatic hypotension, recurrent supraventricular tachycardia with a loop recorder in place. Patient's past medical history is also significant for recent hospitalization at [facility] on June 28, 2017 to July 05, 2017 for rapid heart rate and presyncopal episode. Prior to that patient had been hospitalized for the same episodes and a loop recorder was placed for ruling out arrhythmia. Patient reports being admitted at [facility] as well as [facility] in the recent past. Review of records from [facility] EKG at the time of their admission showed supraventricular tachycardia, mildly elevated troponin. Cardiology was consulted and patient had to EP physicians see him. Dr. Hobbs has been following the patient as well. Patient's primary child watch attendant is Dr. Kumari. Patient was also treated for MRSA wound infection of the back with IV daptomycin and thereafter discharged on oral Bactrim and oral Augmentin. Per review of records it appears that patient did not have any episodes of bacteremia during that admission. Patient was seen by Dr. Hobbs and due to ongoing infection issues it was decided that after he completes a 2 week course of IV antibiotics that he would be considered for any long-term cardiac plan such as the ablation and other EP procedures. Thereafter patient was discharged to a care home facility due to concern for falls. With this background patient was brought into the hospital at [facility] by EMS. Patient was complaining of palpitations, shaking episodes, nausea and was found to have SVTs. He received adenosine without any significant improvement and was cardioverted 1 for possible A. fib. Patient reverted into SVTs at a rate of 180 bpm. Reportedly an additional cardioversion was done in the emergency room. Patient was started on amiodarone IV as he continued to have intermittent episodes of SVTs. Patient is currently in the ICU under the services of critical care physicians. Reportedly upon arrival to the emergency room patient had a heart rate of 70 at some point in a blood pressure 107/59. 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 He also has been diagnosed with hypothyroidism approximately 1 month back and is currently on Synthyroid. At the time of my evaluation patient is in the ICU currently not on any vasopressors, his amiodarone drip has been discontinued and currently has been switched to oral amiodarone. Blood cultures have been drawn to rule out any bacteremia in view of pacemaker suspect infection. Patient is awake alert oriented 3. Complains of mild nausea but otherwise does not report any other new complaints. No fever, no chills or night sweats. Patient denies any prior history of pacemaker infections or endocarditis. Infectious disease is consulted for evaluation and management of possible pacemaker infection given recent history of being treated for MRSA skin infection of the back. Review of Systems ROS Limitations: Poor Historian Constitutional: DENIES: Diaphoretic episodes, Fatigue, Fever, Weight gain, Weight loss, Chills, Dizziness, Change in appetite, Night Sweats Endocrine: DENIES: Heat/cold intolerance, Polydipsia, Polyuria, Polyphagia Eyes: DENIES: Blurred vision, Diplopia, Eye inflammation, Eye pain, Vision loss , Photosensitivity, Double Vision Ears, nose, mouth, throat: DENIES: Tinnitus, Hearing loss, Vertigo, Nasal discharge, Oral lesions, Throat pain, Hoarseness, Ear Pain, Running Nose, Epistaxis, Sinus Pain, Toothache, Odynophagia Respiratory: DENIES: Apneas, Cough, Snoring, Wheezing, Hemoptysis, Sputum production, Shortness of breath Cardiovascular: COMPLAINS OF: Syncope, DENIES: Chest pain, Palpitations, Dyspnea on Exertion, PND, Lower Extremity Edema, Orthopnea, Claudication Gastrointestinal: COMPLAINS OF: Nausea, DENIES: Abdominal pain, Black stools, Bloody stools, Constipation, Diarrhea, Vomiting, Difficulty Swallowing, Anorexia Genitourinary: DENIES: Sexual dysfunction, Urinary frequency, Urinary incontinence, Urgency, Hematuria, Dysuria, Nocturia, Penile Discharge, Testicular Pain, Testicular Swelling Musculoskeletal: DENIES: Joint pain, Muscle aches, Stiffness, Joint Swelling, Back pain, Neck pain Integumentary: DENIES: Abnormal pigmentation, Nail changes, Pruritus, Rash Hematologic/lymphatic: DENIES: Bruising, Lymphadenopathy Immunologic/allergic: DENIES: Eczema, Urticaria Neurologic: DENIES: Abnormal gait, Headache, Localized weakness, Paresthesias, Seizures, Speech Problems, Tremor, Poor Balance Psychiatric: DENIES: Anxiety, Confusion, Mood changes, Depression, Hallucinations, Agitation, Suicidal Ideation, Homicidal Ideation, Delusions Except as stated in HPI: all other systems reviewed are Neg Past Family Social History Allergies: Coded Allergies: No Known Allergies (Verified Allergy, Severe, 07/09/17) Past Medical History CML on Gleevec Hyperlipidemia Possible gout as patient is on colchicine or may be hyper uricemia BPH Hypothyroidism Hypertension Coronary artery disease A. fib Supraventricular tachycardia Recent history of MRSA infections History of TIA Macular degeneration Chronic kidney disease Mastoiditis Past Surgical History Right shoulder arthroscopy Cataract surgery Tonsillectomy [facility] pacemaker insertion surgery Loop recorder surgery Reported Medications Reported Meds & Active Scripts Active Reported Hydrocodone-Acetaminophen 5-300 Mg Tab 1 Tab PO Q6H PRN Sulfamethoxazole-Trimethoprim 800-160 Mg Tab 1 Tab PO BID Amoxicillin 500 Mg Cap 500 Mg PO Q12HR Ondansetron (Ondansetron HCl) 4 Mg Tab 4 Mg PO Q6HR PRN Feosol (Ferrous Sulfate) 325 Mg (65 Mg Iron) Tab 650 Mg PO BIDPC Levothyroxine (Levothyroxine Sodium) 25 Mcg Tab 25 Mcg PO DAILY Dutasteride-Tamsulosin 0.5-0.4 Mg Cap 1 Cap PO DAILY Metoprolol Tartrate 25 Mg Tab 12.5 Mg PO BID Atorvastatin (Atorvastatin Calcium) 10 Mg Tab 10 Mg PO HS Midodrine 10 Mg Tab 10 Mg PO BID Imatinib (Imatinib Mesylate) 100 Mg Tab 400 Mg PO DAILY Colace (Docusate Sodium) 100 Mg Capsule 100 Mg PO BID PRN Clopidogrel (Clopidogrel Bisulfate) 75 Mg Tab 75 Mg PO DAILY Active Ordered Medications Current Medications Medications (Trade) Dose Ordered Sig/Saul Route Start Time Stop Time Status Last Admin (NS Flush) 2 ml UNSCH PRN IVF 07/09/17 10:30 Sodium Chloride 1,000 ml @ 42 mls/hr [id number] IV 07/09/17 12:00 07/09/17 12:00 (NS Flush) 2 ml BID IV FLUSH 07/09/17 21:00 07/10/17 08:58 (Tylenol) 650 mg Q6H PRN PO 07/09/17 10:45 (Pepcid) 10 mg Q12HR PO 07/09/17 21:00 07/10/17 08:58 (Zofran Inj) 4 mg Q6H PRN IV PUSH 07/09/17 10:45 07/10/17 09:54 (Duoneb Neb) 1 ampule Q4HR NEB PRN INH 07/09/17 10:45 Miscellaneous Information 1 [id number] XX 07/09/17 10:45 07/09/17 10:45 (Chlorhexidine 2% Cloth) 3 pack Taper DAILY@04 TOP 07/10/17 04:00 07/06/18 03:59 07/10/17 04:00 (Chlorhexidine 2% Cloth) 3 pack UNSCH PRN TOP 07/09/17 10:45 (Stacy-Colace) 1 tab BID PO 07/09/17 21:00 (Milk Of Magnesia Liq) 30 ml Q12H PRN PO 07/09/17 10:45 (Senokot) 17.2 mg Q12H PRN PO 07/09/17 10:45 (Dulcolax Supp) 10 mg DAILY PRN RECTAL 07/09/17 10:45 (Lactulose Liq) 30 ml DAILY PRN PO 07/09/17 10:45 (Pill Splitter) 1 ea UNSCH PRN OTHER 07/09/17 11:30 (Lipitor) 10 mg HS PO 07/09/17 21:00 07/09/17 21:04 (Plavix) 75 mg DAILY PO 07/10/17 09:00 07/10/17 08:58 (Ferrous Sulfate) 650 mg BIDPC PO 07/09/17 18:00 07/10/17 08:58 (Synthroid) 25 mcg DAILY@0600 PO 07/10/17 06:00 07/10/17 05:02 (Proamatine) 10 mg BID PO 07/09/17 21:00 07/10/17 08:58 Patient Own Medication PT OWN MED: GLEEVEC(IMATINIB) 400 MG PO DAILY DAILY PO 07/10/17 09:00 07/10/17 09:00 (Cordarone) 400 mg Q8H PO 07/10/17 07:00 07/10/17 09:37 Family History Reviewed and noncontributory to current infectious disease issues Social History Recently been at a fdc/rehab with a recent history of falls No recent travel Denies smoking Denies any alcohol Physical Exam Vital Signs Vital Signs Date Time Temp Pulse Resp B/P (MAP) Pulse Ox O2 Delivery O2 Flow Rate FiO2 07/10/17 09:41 79 122/59 07/10/17 06:00 58 07/10/17 04:00 98.1 59 14 137/63 (87) 97 07/10/17 04:00 59 07/10/17 02:00 70 07/10/17 00:00 97.8 58 15 128/60 (82) 98 07/10/17 00:00 58 07/09/17 22:06 68 125/58 07/09/17 22:00 83 07/09/17 20:00 98.0 64 16 119/56 (77) 98 07/09/17 20:00 64 07/09/17 18:00 64 07/09/17 17:30 61 113/56 07/09/17 16:00 97.9 59 20 100/53 (69) 100 07/09/17 16:00 59 07/09/17 14:00 57 07/09/17 13:45 97.6 59 17 108/55 (72) 100 07/09/17 13:45 57 07/09/17 13:20 07/09/17 13:10 60 110/57 07/09/17 12:30 60 16 106/56 (73) 100 Room Air 07/09/17 12:00 62 18 112/59 (76) 99 Nasal Cannula 07/09/17 11:30 64 16 107/59 (75) 98 Nasal Cannula 07/09/17 11:00 64 16 103/52 (69) 100 Nasal Cannula 07/09/17 10:30 68 18 101/55 (70) 100 Nasal Cannula Physical Exam GENERAL: This is a well-nourished, well-developed patient, in no apparent distress. SKIN: Dry skin, multiple skin lesions suggestive of either eczema, areas of hyperkeratosis especially around the scalp on the right side. Easy bruising. Skin on the back with no evidence of infection no abrasion. HEAD: Atraumatic. Normocephalic. No temporal or scalp tenderness. EYES: Pupils equal round and reactive. Extraocular motions intact. No scleral icterus. No injection or drainage. ENT: Nose without bleeding, purulent drainage or septal hematoma. Throat without erythema, tonsillar hypertrophy or exudate. Uvula midline. Airway patent. NECK: Trachea midline. Supple, nontender, no meningeal signs. CARDIOVASCULAR: Regular rate and rhythm without murmurs, gallops, or rubs. RESPIRATORY: Clear to auscultation. Breath sounds equal bilaterally. No wheezes , rales, or rhonchi. GASTROINTESTINAL: Abdomen soft, non-tender, nondistended. No hepato-splenomegaly , or palpable masses. No guarding. MUSCULOSKELETAL: Extremities without clubbing, cyanosis, or edema. No joint tenderness, effusion, or edema noted. No calf tenderness. Negative Homans sign bilaterally. NEUROLOGICAL: Awake and alert. Nonfocal exam Psych cooperative IV line sites with no evidence of infection. Laboratory Laboratory Tests Test 07/09/17 14:40 07/09/17 19:02 07/10/17 00:36 07/10/17 04:40 Nasal Screen MRSA (PCR) MRSA DETECTED Troponin I 0.32 0.21 Total Creatine Kinase 199 White Blood Count 5.7 Red Blood Count 3.15 Hemoglobin 10.6 Hematocrit 31.1 Mean Corpuscular Volume 98.8 Mean Corpuscular Hemoglobin 33.8 Mean Corpuscular Hemoglobin Concent 34.2 Red Cell Distribution Width 17.3 Platelet Count 168 Mean Platelet Volume 8.6 Neutrophils (%) (Auto) 64.3 Lymphocytes (%) (Auto) 17.2 Monocytes (%) (Auto) 11.0 Eosinophils (%) (Auto) 7.0 Basophils (%) (Auto) 0.5 Neutrophils # (Auto) 3.7 Lymphocytes # (Auto) 1.0 Monocytes # (Auto) 0.6 Eosinophils # (Auto) 0.4 Basophils # (Auto) 0.0 CBC Comment DIFF FINAL Differential Comment Prothrombin Time 11.4 Prothromb Time International Ratio 1.1 Blood Urea Nitrogen 20 Creatinine 1.51 Random Glucose 75 Total Protein 5.7 Albumin 2.5 Calcium Level 8.4 Phosphorus Level 2.8 Magnesium Level 1.9 Alkaline Phosphatase 112 Aspartate Amino Transf (AST/SGOT) 58 Alanine Aminotransferase (ALT/SGPT) 54 Total Bilirubin 0.3 Sodium Level 138 Potassium Level 4.8 Chloride Level 106 Carbon Dioxide Level 26.0 Anion Gap 6 Estimat Glomerular Filtration Rate 44 Lactic Acid Level 0.6 Result Diagram: 07/10/17 0440 07/10/17 0440 Imaging Last Impressions Chest X-Ray 07/09/17 0929 Signed Impressions: Service Date/Time: Sunday, July 09, 2017 09:33 - CONCLUSION: Interstitial densities left upper lobe and left lower lobe could be chronic Ronni East MD Assessment and Plan Assessment and Plan Rule out pacemaker infection Loop recorder in place Recent history of MRSA infection treated with IV daptomycin followed by oral Bactrim. History of falls and presyncopal episodes determined to be likely of cardiac etiology CML on Gleevec Immune compromised A. fib Supraventricular tachycardia Recent history of MRSA infections Chronic kidney disease Recommendations: Observe off of antibiotics Keep wound open does not appear to be infected at the present time. Follow blood cultures 2D echo to rule out pacemaker infection or endocarditis Discussed with RN Reviewed medical records from [facility] Follow clinically If any change in clinicals condition suggestive of sepsis or infection okay to start empiric antibiotics. Rosalina Zhang MD Jul 10, 2017 10:17
--- NOTE | 2017-07-10 16:56 | PD.WCN.NOT ---
Wound Consult Description: Wound consult ordered by for wound management Communicated with: Shahida JORDAN & Blaire JORDAN, Dr.Daniel Diggs Recommendation: 1. Reposition patient every 2 hours for comfort and offloading 2. Avoid using adhesive dressing on patient. 3. Apply skin protective cream to back/Flank daily. 4. Please do not use cotton underpad.They create moisture and pressure. Additional Information: Patient was seen today on [facility] by technical writer and Shahida JORDAN for wound management.Patient alert in bed with no complaints of discomfort/distress.Patient was able to independently sit upright in bed .Belt Lacer visualized entire back/Left flank area.Skin is intact dry cool to touch Area of Petechia noted to left flank in which is square in shape.Suspicious of dressing reaction.Left Flank is blanchable intact with no open areas noted nor any drainage.Cotton underpad removed from under patient for comfort and Skin protective cream applied .Teaching to family to encourage patient to reposition every 2 hours for comfort and offloading.Review of most recent labs show no evidence of infection.Patient /family had no further questions or concerns upon writers departure. Cassius Coppola [facility] Jul 10, 2017 16:56
[2017-07-10] MEDS: SODIUM CHLOR 0.9% 1000 ML INJ 1,000 ML IV SCH (17:38)
--- NOTE | 2017-07-10 18:40 | HHI.PR ---
Subjective Remarks No acute distress when seen. Heart rate under control on amiodarone. No chest pain. Objective Vital Signs Date Time Temp Pulse Resp B/P (MAP) Pulse Ox O2 Delivery O2 Flow Rate FiO2 07/10/17 18:00 80 07/10/17 16:00 97.8 70 20 146/67 (93) 97 07/10/17 16:00 70 07/10/17 14:00 93 07/10/17 12:00 63 07/10/17 12:00 98.6 63 18 121/58 (79) 99 07/10/17 10:00 67 07/10/17 09:41 79 122/59 07/10/17 08:00 98.2 68 18 131/60 (83) 96 07/10/17 08:00 68 07/10/17 06:00 58 07/10/17 04:00 98.1 59 14 137/63 (87) 97 07/10/17 04:00 59 07/10/17 02:00 70 07/10/17 00:00 97.8 58 15 128/60 (82) 98 07/10/17 00:00 58 07/09/17 22:06 68 125/58 07/09/17 22:00 83 07/09/17 20:00 98.0 64 16 119/56 (77) 98 07/09/17 20:00 64 I/O 07/09/17 07/09/17 07/09/17 07/10/17 07/10/17 07/10/17 06:59 14:59 22:59 06:59 14:59 22:59 Intake Total 500 ml 708 ml 240 ml 863 ml 982 ml Output Total 75 ml 325 ml 275 ml Balance 500 ml 633 ml 240 ml 538 ml 707 ml Intake Oral 500 ml 240 ml 750 ml IV Total 500 ml 208 ml 113 ml 982 ml Output Urine Total 75 ml 325 ml 275 ml # Voids 4 2 2 # Bowel Movements 0 2 2 Result Diagram: 07/10/1743907/10/17439 Objective Remarks GENERAL: NAD, A&Ox3 HEAD: Normocephalic. NECK: Supple, trachea midline. No lymphadenopathy. EYES: No scleral icterus. No injection or drainage. CARDIOVASCULAR: Regular rate and rhythm without murmurs, gallops, or rubs. RESPIRATORY: Breath sounds equal bilaterally. No accessory muscle use. GASTROINTESTINAL: Abdomen soft, non-tender, nondistended. MUSCULOSKELETAL: No cyanosis, or edema. SKIN: Warm and dry. NEURO: No focal neurological deficitis. A/P Problem List: (1) Macular degeneration of both eyes ICD Code: H35.30 - Unspecified macular degeneration Status: Chronic (2) Leukemia ICD Code: C95.90 - Leukemia, unspecified not having achieved remission Status: Chronic (3) Hypothyroidism ICD Code: E03.9 - Hypothyroidism, unspecified Status: Chronic (4) Anemia ICD Code: D64.9 - Anemia, unspecified Status: Chronic Assessment and Plan 86-year-old male admitted with SVT. History of recurrent SVT. Pacemaker plan. SVT (recurrent) Resolved after cardioversion and with p.o. amiodarone, for now Plan for pacemaker placement. Cardiology following Cardiac skylights assembler following Follow on telemetry Macular degeneration Dry eye syndrome Chronic pain syndrome right foot No change to baseline treatments Nausea Resolved Leukemia (CML) H/O MRSA left flank wound Anemia Continue Imatinib History of blood transfusion Continue to monitor CBC Continue ferrous sulfate 325 mg twice daily Hypothyroidism Continue levothyroxine 25 mics/day DVT prophylaxis SCDs Rishi Diggs MD Jul 10, 2017 18:40
[2017-07-10] MEDS: ATORVASTATIN 10 MG TAB PO SCH (20:32)
--- NOTE | 2017-07-10 23:01 | EKG ---
Date Performed: 07/09/2017 Time Performed: 14:33:42 PTAGE: 86 years EKG: Sinus rhythm Normal ECG PREVIOUS TRACING : 07/09/2017 09.24 Since the previous tracing, no significant change noted DOCTOR: Rolando Contreras Interpretating Date/Time 07/10/2017 23:00:42
--- NOTE | 2017-07-10 23:19 | EKG ---
Date Performed: 07/09/2017 Time Performed: 09:24:48 PTAGE: 86 years EKG: SINUS TACHYCARDIA NONSPECIFIC ST & T-WAVE ABNORMALITY ABNORMAL RHYTHM ECG PREVIOUS TRACING : 07/09/2017 09.23 Compared to previous tracing, SVT no longer present DOCTOR: Rolando Contrears Interpretating Date/Time 07/10/2017 23:19:49
--- NOTE | 2017-07-10 23:22 | EKG ---
Date Performed: 07/09/2017 Time Performed: 09:23:31 PTAGE: 86 years EKG: SVT NONSPECIFIC ST & T-WAVE ABNORMALITY ABNORMAL ECG DOCTOR: Rolando Contreras Interpretating Date/Time 07/10/2017 23:20:19
[2017-07-11] VITALS (17 sets, daily range): BP systolic 110–161; BP diastolic 55–74; PULSE 63–134; RESP 16–21; TEMP 96.6–98.1; O2SAT 96–99
[2017-07-11] MEDS: CHLORHEXIDINE GLUCONATE 2 % 1 PACK (2 CLOTHS) TOP SCH (04:00)
[2017-07-11] MEDS: AMIODARONE 200 MG TAB PO SCH ×3 (05:24→22:02)
[2017-07-11] MEDS: LEVOTHYROXINE SODIUM 25 MCG TAB PO SCH (05:24)
[2017-07-11 06:51] LABS: AUTOMATED NEUTROPHIL # 4.1 TH/MM3 (1.8-7.7); BASOPHIL % 0.4 % (0.0-2.0); EOSINOPHIL # 0.4 TH/MM3 (0-0.4); EOSINOPHIL % 6.2 % (0.0-4.0); HEMOGLOBIN 10.8 GM/DL (13.0-17.0); LYMPH % 14.4 % (9.0-44.0); LYMPHOCYTE # 0.8 TH/MM3 (1.0-4.8); MEAN CELL VOLUME 98.1 FL (80.0-100.0); MEAN CORPUSCULAR HEMOGLOBIN 34.2 PG (27.0-34.0); MEAN CORPUSCULAR HGB CONC 34.9 % (32.0-36.0); MEAN PLATELET VOLUME 8.6 FL (7.0-11.0); MONO % 9.5 % (0.0-8.0); MONOCYTE # 0.6 TH/MM3 (0-0.9); NEUT % 69.5 % (16.0-70.0); PLATELET COUNT 162 TH/MM3 (150-450); RED BLOOD COUNT 3.16 MIL/MM3 (4.50-5.90); RED CELL DISTRIBUTION WIDTH 17.4 % (11.6-17.2); WHITE BLOOD COUNT 5.9 TH/MM3 (4.0-11.0)
[2017-07-11 07:16] LABS: ALBUMIN 2.7 GM/DL (3.4-5.0); AST (GOT) 47 U/L (15-37); BICARBONATE 26.7 MEQ/L (21.0-32.0); BLOOD UREA NITROGEN 18 MG/DL (7-18); CALCIUM 8.3 MG/DL (8.5-10.1); CHLORIDE 105 MEQ/L (98-107); CREATININE 1.26 MG/DL (0.60-1.30); GLOMERULAR FILTRATION RATE 54 ML/MIN (>89); GLUCOSE,RANDOM 83 MG/DL (74-106); SODIUM (NA) 139 MEQ/L (136-145)
[2017-07-11 07:19] LABS: ALKALINE PHOSPHATASE 112 U/L (45-117); ALT (GPT) 48 U/L (12-78); TOTAL BILIRUBIN ADULT 0.4 MG/DL (0.2-1.0); TOTAL PROTEIN 5.8 GM/DL (6.4-8.2)
[2017-07-11] MEDS: SODIUM CHLORIDE 0.9% FLUSH 10 ML FLUSH IV FLUSH SCH ×2 (09:00→21:58)
[2017-07-11] MEDS: [UNRECOGNIZED DRUG - OTHER] PO SCH (09:00)
[2017-07-11] MEDS: FERROUS SULFATE 325 MG (65 MG ELEMENTAL IRON) TAB PO SCH ×2 (09:07→18:46)
[2017-07-11] MEDS: FAMOTIDINE 20 MG TAB PO SCH ×2 (09:07→21:58)
[2017-07-11] MEDS: CLOPIDOGREL 75 MG TAB PO SCH (09:07)
[2017-07-11] MEDS: MIDODRINE 5 MG TAB PO SCH ×2 (09:08→21:57)
[2017-07-11] MEDS: DOCUSATE SODIUM 50 MG/SENNA 8.6 MG TAB PO SCH ×2 (09:08→21:00)
--- NOTE | 2017-07-11 10:38 | HHI.PR ---
Subjective Remarks No new complaints. Some confusion overnight. No acute distress when seen. Heart rate under control on amiodarone. No chest pain. Objective Vital Signs Date Time Temp Pulse Resp B/P (MAP) Pulse Ox O2 Delivery O2 Flow Rate FiO2 07/11/17 08:30 99 07/11/17 06:00 63 07/11/17 04:00 97.9 79 17 140/66 (90) 96 07/11/17 04:00 79 07/11/17 02:00 79 07/11/17 00:00 98.1 74 18 161/70 (100) 97 07/11/17 00:00 74 07/10/17 22:00 68 07/10/17 20:00 98.3 70 16 148/67 (94) 99 07/10/17 20:00 70 07/10/17 18:00 80 07/10/17 16:00 97.8 70 20 146/67 (93) 97 07/10/17 16:00 70 07/10/17 14:00 93 07/10/17 12:00 63 07/10/17 12:00 98.6 63 18 121/58 (79) 99 I/O 07/10/17 07/10/17 07/10/17 07/11/17 07/11/17 07/11/17 07:00 15:00 23:00 07:00 15:00 23:00 Intake Total 240 ml 863 ml 982 ml 120 ml Output Total 325 ml 275 ml Balance 240 ml 538 ml 707 ml 120 ml Intake Oral 240 ml 750 ml 120 ml IV Total 113 ml 982 ml Output Urine Total 325 ml 275 ml # Voids 4 2 2 3 # Bowel Movements 2 2 1 Result Diagram: 07/11/17 0402 07/11/17 0402 Objective Remarks GENERAL: NAD, A&Ox3 HEAD: Normocephalic. NECK: Supple, trachea midline. No lymphadenopathy. EYES: No scleral icterus. No injection or drainage. CARDIOVASCULAR: Regular rate and rhythm without murmurs, gallops, or rubs. RESPIRATORY: Breath sounds equal bilaterally. No accessory muscle use. GASTROINTESTINAL: Abdomen soft, non-tender, nondistended. MUSCULOSKELETAL: No cyanosis, or edema. SKIN: Warm and dry. NEURO: No focal neurological deficitis. A/P Problem List: (1) Macular degeneration of both eyes ICD Code: H35.30 - Unspecified macular degeneration Status: Chronic (2) Leukemia ICD Code: C95.90 - Leukemia, unspecified not having achieved remission Status: Chronic (3) Hypothyroidism ICD Code: E03.9 - Hypothyroidism, unspecified Status: Chronic (4) Anemia ICD Code: D64.9 - Anemia, unspecified Status: Chronic Assessment and Plan 86-year-old male admitted with SVT. History of recurrent SVT. Pacemaker plan. Plavix held for possible pacemaker placement in 5 days. Following blood cultures. SVT (recurrent) Resolved after cardioversion and with p.o. amiodarone, for now Plan for pacemaker placement. 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
[2017-07-11] MEDS: ATORVASTATIN 10 MG TAB PO SCH (21:58)
[2017-07-12] VITALS (11 sets, daily range): BP systolic 113–146; BP diastolic 55–67; PULSE 65–96; RESP 16–20; TEMP 96.4–98.2; O2SAT 96–99
[2017-07-12] MEDS: CHLORHEXIDINE GLUCONATE 2 % 1 PACK (2 CLOTHS) TOP SCH (04:00)
[2017-07-12] MEDS: AMIODARONE 200 MG TAB PO SCH ×3 (06:10→22:40)
[2017-07-12] MEDS: LEVOTHYROXINE SODIUM 25 MCG TAB PO SCH (06:10)
--- NOTE | 2017-07-12 08:13 | HHI.PR ---
Subjective Remarks The patient is in bed he complains of some nausea not able to eat in the morning. No chest pain or shortness of breath. Feels tired. No lightheadedness. Had a normal bowel movement last night. Objective Vitals Vital Signs Date Time Temp Pulse Resp B/P (MAP) Pulse Ox O2 Delivery O2 Flow Rate FiO2 07/12/17 04:00 98.2 83 16 140/65 (90) 97 07/12/17 04:00 85 07/12/17 00:05 96 07/11/17 23:05 97.4 134 16 110/62 (78) 96 07/11/17 21:04 98 21 07/11/17 20:48 72 07/11/17 19:56 97.9 78 16 115/55 (75) 98 07/11/17 16:00 97.9 77 20 161/74 (103) 98 07/11/17 15:48 63 07/11/17 15:18 96.6 69 122/58 (79) 97 07/11/17 12:00 68 21 148/69 (95) 98 07/11/17 12:00 68 07/11/17 11:00 80 07/11/17 10:00 73 07/11/17 09:00 96 07/11/17 08:30 99 I/O 07/11/17 07/11/17 07/11/17 07/12/17 07/12/17 07/12/17 07:00 15:00 23:00 07:00 15:00 23:00 Intake Total 120 ml 240 ml Output Total 500 ml 960 ml Balance 120 ml -500 ml -720 ml Intake Oral 120 ml 240 ml Output Urine Total 500 ml 960 ml # Voids 3 # Bowel Movements 1 1 0 Result Diagram: 07/11/17 0402 07/11/17 0402 Imaging Last Impressions Chest X-Ray 07/09/17 09 Signed Impressions: Service Date/Time: Sunday, July 09, 2017 09:33 - CONCLUSION: Interstitial densities left upper lobe and left lower lobe could be chronic Ronni East MD Objective Remarks GENERAL: NAD, A&Ox3 HEAD: Normocephalic. NECK: Supple, trachea midline. No lymphadenopathy. EYES: No scleral icterus. No injection or drainage. CARDIOVASCULAR: Regular rate and rhythm without murmurs, gallops, or rubs. RESPIRATORY: Breath sounds equal bilaterally. No accessory muscle use. GASTROINTESTINAL: Abdomen soft, non-tender, nondistended. MUSCULOSKELETAL: No cyanosis, or edema. SKIN: Warm and dry. NEURO: No focal neurological deficits. A/P Assessment and Plan 86-year-old male admitted with SVT. History of recurrent SVT. Pacemaker plan. Plavix held for possible pacemaker placement in 5 days. Following blood cultures. SVT (recurrent) Resolved after cardioversion and with p.o. amiodarone, for now Plan for pacemaker placement. Cardiology following Cardiac professor of exercise science following Follow on telemetry Encephalopathy NOS Mild May be sundowning Monitor for now Macular degeneration Dry eye syndrome Chronic pain syndrome right foot No change to baseline treatments Nausea. 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 With nausea Bernadine Ford MD Jul 12, 2017 08:13
[2017-07-12] MEDS: MIDODRINE 5 MG TAB PO SCH ×2 (08:45→21:01)
[2017-07-12] MEDS: DOCUSATE SODIUM 50 MG/SENNA 8.6 MG TAB PO SCH ×2 (08:46→21:00)
[2017-07-12] MEDS: FAMOTIDINE 20 MG TAB PO SCH ×2 (08:47→21:01)
[2017-07-12] MEDS: FERROUS SULFATE 325 MG (65 MG ELEMENTAL IRON) TAB PO SCH ×2 (08:47→18:03)
[2017-07-12] MEDS: [UNRECOGNIZED DRUG - OTHER] PO SCH (08:48)
[2017-07-12] MEDS: ENOXAPARIN SODIUM 40 MG/0.4 ML SYRINGE SQ SCH (08:48)
[2017-07-12] MEDS: SODIUM CHLORIDE 0.9% FLUSH 10 ML FLUSH IV FLUSH SCH ×2 (08:48→21:00)
--- NOTE | 2017-07-12 20:16 | HHI.IDPN ---
Subjective Subjective Remarks Mr. Lewis is an 86-year-old male with past medical history significant for CML, anemia of chronic disease, acute on chronic kidney disease , history of orthostatic hypotension, recurrent supraventricular tachycardia with a loop recorder in place. Patient's past medical history is also significant for recent hospitalization at [facility] on June 28, 2017 to July 05, 2017 for rapid heart rate and presyncopal episode. Prior to that patient had been hospitalized for the same episodes and a loop recorder was placed for ruling out arrhythmia. Patient reports being admitted at [facility] as well as [facility] in the recent past. Review of records from [facility] EKG at the time of their admission showed supraventricular tachycardia, mildly elevated troponin. Cardiology was consulted and patient had to EP physicians see him. Dr. Hobbs has been following the patient as well. Patient's primary bulk loader is Dr. Kumari. Patient was also treated for MRSA wound infection of the back with IV daptomycin and thereafter discharged on oral Bactrim and oral Augmentin. Per review of records it appears that patient did not have any episodes of bacteremia during that admission. Patient was seen by Dr. Hobbs and due to ongoing infection issues it was decided that after he completes a 2 week course of IV antibiotics that he would be considered for any long-term cardiac plan such as the ablation and other EP procedures. Thereafter patient was [place] [facility] facility due to concern for falls. With this background patient was brought into the hospital at [facility] by EMS. Patient was complaining of palpitations, shaking episodes, nausea and was found to have SVTs. He received adenosine without any significant improvement and was cardioverted 1 for possible A. fib. Patient reverted into SVTs at a rate of 180 bpm. Reportedly an additional cardioversion was done in the emergency room. Patient was started on amiodarone IV as he continued to have intermittent episodes of SVTs. Patient is currently in the ICU under the services of critical care physicians. Reportedly upon arrival to the emergency room patient had a heart rate of 70 at some point in a blood pressure 107/59. Of note patient also sees a cattle tester for his CML and is currently on Gleevec. He also has been diagnosed with hypothyroidism approximately 1 month back and is currently on Synthyroid. At the time of my evaluation patient is in the ICU currently not on any vasopressors, his amiodarone drip has been discontinued and currently has been switched to oral amiodarone. Blood cultures have been drawn to rule out any bacteremia in view of pacemaker suspect infection. Patient is awake alert oriented 3. Complains of mild nausea but otherwise does not report any other new complaints. No fever, no chills or night sweats. Patient denies any prior history of pacemaker infections or endocarditis. Infectious disease is consulted for evaluation and management of possible pacemaker infection given recent history of being treated for MRSA skin infection of the back. Overnight events reviewed. Delayed entry. Discussed with nurse Teresa. No fevers No rash No diarrhea. Antibiotics None. Past Medical History Reviewed. Allergies: Coded Allergies: No Known Allergies (Verified Allergy, Severe, 07/09/17) Objective . Vital Signs Date Time Temp Pulse Resp B/P (MAP) Pulse Ox O2 Delivery O2 Flow Rate FiO2 07/12/17 16:01 69 07/12/17 15:26 97.7 69 18 142/65 (90) 99 07/12/17 12:00 97.8 71 18 113/55 (74) 97 07/12/17 11:55 65 07/12/17 08:00 96.4 78 20 146/67 (93) 96 07/12/17 07:59 70 07/12/17 04:00 98.2 83 16 140/65 (90) 97 07/12/17 04:00 85 07/12/17 00:05 96 07/11/17 23:05 97.4 134 16 110/62 (78) 96 07/11/17 21:04 98 21 07/11/17 20:48 72 07/12/17 07/12/17 07/13/17 15:00 23:00 07:00 Intake Total 480 ml Balance 480 ml Intake Oral 480 ml # Voids 4 # Bowel Movements 2 . Laboratory Tests Test 07/11/17 04:02 White Blood Count 5.9 TH/MM3 Red Blood Count 3.16 MIL/MM3 Hemoglobin 10.8 GM/DL Hematocrit 31.0 % Mean Corpuscular Volume 98.1 FL Mean Corpuscular Hemoglobin 34.2 PG Mean Corpuscular Hemoglobin Concent 34.9 % Red Cell Distribution Width 17.4 % Platelet Count 162 TH/MM3 Mean Platelet Volume 8.6 FL Neutrophils (%) (Auto) 69.5 % Lymphocytes (%) (Auto) 14.4 % Monocytes (%) (Auto) 9.5 % Eosinophils (%) (Auto) 6.2 % Basophils (%) (Auto) 0.4 % Neutrophils # (Auto) 4.1 TH/MM3 Lymphocytes # (Auto) 0.8 TH/MM3 Monocytes # (Auto) 0.6 TH/MM3 Eosinophils # (Auto) 0.4 TH/MM3 Basophils # (Auto) 0.0 TH/MM3 CBC Comment DIFF FINAL Differential Comment Laboratory Tests Test 07/11/17 04:02 Blood Urea Nitrogen 18 MG/DL Creatinine 1.26 MG/DL Random Glucose 83 MG/DL Total Protein 5.8 GM/DL Albumin 2.7 GM/DL Calcium Level 8.3 MG/DL Alkaline Phosphatase 112 U/L Aspartate Amino Transf (AST/SGOT) 47 U/L Alanine Aminotransferase (ALT/SGPT) 48 U/L Total Bilirubin 0.4 MG/DL Sodium Level 139 MEQ/L Potassium Level 4.3 MEQ/L Chloride Level 105 MEQ/L Carbon Dioxide Level 26.7 MEQ/L Anion Gap 7 MEQ/L Estimat Glomerular Filtration Rate 54 ML/MIN Microbiology Date/Time Source Procedure Growth Status 07/10/17 12:39 Blood Peripheral Aerobic Blood Culture - Preliminary NO GROWTH IN 2 DAYS Resulted 07/10/17 12:39 Blood Peripheral Anaerobic Blood Culture - Preliminary NO GROWTH IN 2 DAYS Resulted 07/10/17 12:34 Blood Peripheral Aerobic Blood Culture - Preliminary NO GROWTH IN 2 DAYS Resulted 07/10/17 12:34 Blood Peripheral Anaerobic Blood Culture - Preliminary NO GROWTH IN 2 DAYS Resulted Imaging Last Impressions Chest X-Ray 07/09/17 0929 Signed Impressions: Service Date/Time: Sunday, July 09, 2017 09:33 - CONCLUSION: Interstitial densities left upper lobe and left lower lobe could be chronic Ronni East MD Physical Exam GENERAL: This is a well-nourished, well-developed patient, in no apparent distress. SKIN: Dry skin, multiple skin lesions suggestive of either eczema, areas of hyperkeratosis especially around the scalp on the right side. Easy bruising. Skin on the back with no evidence of infection no abrasion. HEAD: Atraumatic. Normocephalic. No temporal or scalp tenderness. EYES: Pupils equal round and reactive. Extraocular motions intact. No scleral icterus. No injection or drainage. ENT: Nose without bleeding, purulent drainage or septal hematoma. Throat without erythema, tonsillar hypertrophy or exudate. Uvula midline. Airway patent. NECK: Trachea midline. Supple, nontender, no meningeal signs. CARDIOVASCULAR: Regular rate and rhythm without murmurs, gallops, or rubs. RESPIRATORY: Clear to auscultation. Breath sounds equal bilaterally. No wheezes , rales, or rhonchi. GASTROINTESTINAL: Abdomen soft, non-tender, nondistended. No hepato-splenomegaly , or palpable masses. No guarding. MUSCULOSKELETAL: Extremities without clubbing, cyanosis, or edema. No joint tenderness, effusion, or edema noted. No calf tenderness. Negative Homans sign bilaterally. NEUROLOGICAL: Awake and alert. Nonfocal exam Psych cooperative IV line sites with no evidence of infection. Assessment & Plan Remarks Rule out pacemaker infection Loop recorder in place Recent history of MRSA infection treated with IV daptomycin followed by oral Bactrim. History of falls and presyncopal episodes determined to be likely of cardiac etiology CML on Gleevec Immune compromised A. fib Supraventricular tachycardia Recent history of MRSA infections Chronic kidney disease Recommendations: Continue to observe off of antibiotics Keep wound open does not appear to be infected at the present time. Follow blood cultures which remained negative very low suspicion of pacer infection if any. If any of the blood cultures come back positive please call infectious disease back on the case. We will sign off please call back if any change in clinical condition or questions. Rosalina Zhang MD Jul 12, 2017 20:16
[2017-07-12] MEDS: ATORVASTATIN 10 MG TAB PO SCH (21:00)
[2017-07-13] VITALS (8 sets, daily range): BP systolic 133–167; BP diastolic 60–73; PULSE 61–98; RESP 16–20; TEMP 97.6–98.7; O2SAT 97–99
[2017-07-13] MEDS: CHLORHEXIDINE GLUCONATE 2 % 1 PACK (2 CLOTHS) TOP SCH (03:38)
[2017-07-13] MEDS: LEVOTHYROXINE SODIUM 25 MCG TAB PO SCH (05:49)
[2017-07-13] MEDS: AMIODARONE 200 MG TAB PO SCH ×3 (06:26→23:21)
[2017-07-13] MEDS: ENOXAPARIN SODIUM 40 MG/0.4 ML SYRINGE SQ SCH (09:00)
[2017-07-13] MEDS: DOCUSATE SODIUM 50 MG/SENNA 8.6 MG TAB PO SCH (09:00)
[2017-07-13] MEDS: SODIUM CHLORIDE 0.9% FLUSH 10 ML FLUSH IV FLUSH SCH ×2 (09:47→21:36)
[2017-07-13] MEDS: MIDODRINE 5 MG TAB PO SCH ×2 (09:48→21:34)
[2017-07-13] MEDS: FERROUS SULFATE 325 MG (65 MG ELEMENTAL IRON) TAB PO SCH ×2 (09:48→18:00)
[2017-07-13] MEDS: FAMOTIDINE 20 MG TAB PO SCH ×2 (09:49→21:33)
[2017-07-13] MEDS: [UNRECOGNIZED DRUG - OTHER] PO SCH (09:51)
--- NOTE | 2017-07-13 13:53 | HHI.PR ---
Subjective Remarks Pt seen and examined. Sons at the bedside. They are concerned about him being discharged without any intervention for his SVTs because they have been recurring almost weekly for the past two months and medical management doesn't seem to be sufficient. They are very worried that another episode will happen and can result in a hip fracture or worse, . They would like a pacemaker to be placed during this admission because they have been back and forth between the [facility] and different hospitals multiple times recently. The pt denies CP, palpitations, shortness of breath, or abdominal pain. Appetite is decreased and he endorses some mild nausea relieved with Zofran. He denies dysuria or diarrhea. His son notes that he has been a little more confused and disoriented at nighttime. Objective Vital Signs Date Time Temp Pulse Resp B/P (MAP) Pulse Ox O2 Delivery O2 Flow Rate FiO2 07/13/17 12:00 98.0 69 20 133/63 (86) 98 07/13/17 08:00 97.8 71 20 143/67 (92) 98 07/13/17 04:08 98.7 79 16 167/73 (104) 98 07/13/17 04:00 Room Air 07/13/17 03:47 85 07/13/17 00:00 Room Air 07/12/17 23:46 71 07/12/17 20:05 97.9 79 18 137/65 (89) 97 07/12/17 19:52 85 07/12/17 16:01 69 07/12/17 15:26 97.7 69 18 142/65 (90) 99 I/O 07/12/17 07/12/17 07/12/17 07/13/17 07/13/17 07/13/17 07:00 15:00 23:00 07:00 15:00 23:00 Intake Total 240 ml 480 ml 0 ml Output Total 960 ml 890 ml Balance -720 ml 480 ml -890 ml Intake Oral 240 ml 480 ml 0 ml Output Urine Total 960 ml 890 ml # Voids 4 1 # Bowel Movements 0 2 1 Result Diagram: 07/11/1740107/11/17401 Objective Remarks GENERAL: Elderly male laying comfortably in bed in [facility]. SKIN: Warm and dry. HEENT: AT/NC. Pupils equal and round. Sclera with injection bilaterally. MMM. NECK: Supple no tender LAD or JVD. HEART: RRR no m/r/g. LUNGS: CTAB without wheezes or crackles. ABDOMEN: +BS, soft, NT, ND. EXTREMITIES: No LE edema. NEURO: Awake and alert. Nonfocal. A/P Assessment and Plan 86 YOWM with recurrent SVT, HTN, macular degeneration, TIAs, leukemia, MRSA L flank wound, and anemia admitted on 07/09 for another episode of SVT. 1. SVT - Resolved after cardioversion and with PO amiodarone - Telemetry - Cardiology and EP following - Planning for pacemaker placement now that ID has ruled out active infection 2. L flank wound with MRSA - Chronic and not acutely infected - Recently treated with IV daptomycin followed by PO Bactrim - Blood cultures negative - Examined by ID who recommends monitoring, no need for abx at this time - Chlorhexidine baths in anticipation of possible pacemaker placement 3. Mild delirium - May be sundowning - Advised family to visit as much as possible and keep the room bright during the day and reduce stimulation at night 4. CML, anemia - Continue Imatinib - Monitor CBC - Continue ferrous sulfate 5. Hypothyroidism - Recently started on levothyroxine - Check TSH to see if contributing to tachyarrhythmias 6. History of frequent falls - PT following 9. HLD - Continue home statin DVT prophylaxis: Michelle Yi MD Jul 13, 2017 13:53
[2017-07-13] MEDS ORDERED: DOCUSATE SODIUM 50 MG/SENNA 8.6 MG TAB PO PRN (14:00)
[2017-07-13] MEDS: ATORVASTATIN 10 MG TAB PO SCH (21:33)
[2017-07-14] VITALS (9 sets, daily range): BP systolic 127–147; BP diastolic 57–67; PULSE 56–75; RESP 18–19; TEMP 97.4–98.1; O2SAT 97–99
[2017-07-14] MEDS: AMIODARONE 200 MG TAB PO SCH ×3 (06:29→22:59)
[2017-07-14] MEDS: LEVOTHYROXINE SODIUM 25 MCG TAB PO SCH (06:29)
[2017-07-14] MEDS: CHLORHEXIDINE GLUCONATE 2 % 1 PACK (2 CLOTHS) TOPICAL SCH (08:00)
[2017-07-14] MEDS: FAMOTIDINE 20 MG TAB PO SCH ×2 (08:15→20:52)
[2017-07-14] MEDS: FERROUS SULFATE 325 MG (65 MG ELEMENTAL IRON) TAB PO SCH ×2 (08:15→18:00)
[2017-07-14] MEDS: MIDODRINE 5 MG TAB PO SCH ×2 (08:15→20:52)
[2017-07-14] MEDS: ENOXAPARIN SODIUM 40 MG/0.4 ML SYRINGE SQ SCH (08:16)
[2017-07-14] MEDS: [UNRECOGNIZED DRUG - OTHER] PO SCH (08:17)
[2017-07-14] MEDS: SODIUM CHLORIDE 0.9% FLUSH 10 ML FLUSH IV FLUSH SCH ×2 (08:17→20:52)
[2017-07-14 09:19] LABS: BASOPHIL % 0.6 % (0.0-2.0); EOSINOPHIL # 0.3 TH/MM3 (0-0.4); EOSINOPHIL % 5.2 % (0.0-4.0); HEMOGLOBIN 10.8 GM/DL (13.0-17.0); LYMPHOCYTE # 0.9 TH/MM3 (1.0-4.8); MEAN CELL VOLUME 98.7 FL (80.0-100.0); MEAN CORPUSCULAR HEMOGLOBIN 34.4 PG (27.0-34.0); MEAN CORPUSCULAR HGB CONC 34.9 % (32.0-36.0); MEAN PLATELET VOLUME 8.7 FL (7.0-11.0); MONO % 10.3 % (0.0-8.0); MONOCYTE # 0.6 TH/MM3 (0-0.9); NEUT % 68.9 % (16.0-70.0); PLATELET COUNT 148 TH/MM3 (150-450); RED BLOOD COUNT 3.14 MIL/MM3 (4.50-5.90); WHITE BLOOD COUNT 5.8 TH/MM3 (4.0-11.0)
[2017-07-14] MEDS: ONDANSETRON HCL 4 MG/2 ML VIAL IV PUSH PRN (09:21)
[2017-07-14 09:45] LABS: BICARBONATE 26.3 MEQ/L (21.0-32.0); CALCIUM 8.3 MG/DL (8.5-10.1); CREATININE 1.54 MG/DL (0.60-1.30)
[2017-07-14] MEDS: CLOPIDOGREL 75 MG TAB PO SCH (12:45)
--- NOTE | 2017-07-14 13:46 | HHI.PR ---
Subjective Remarks Pt seen and examined. AFVSS. No further runs of SVTs. Pt reports he is feeling better today than yesterday. Eating better. No CP, SOB, abdominal pain, vomiting. Anxious to get pacemaker placed. Objective Vital Signs Date Time Temp Pulse Resp B/P (MAP) Pulse Ox O2 Delivery O2 Flow Rate FiO2 07/14/17 12:00 97.5 61 18 127/57 (80) 97 07/14/17 08:00 97.9 67 18 135/61 (85) 97 07/14/17 08:00 61 07/14/17 04:00 Room Air 07/14/17 04:00 97.9 65 19 127/59 (81) 97 07/14/17 03:42 56 07/14/17 00:00 Room Air 07/14/17 00:00 98.1 75 18 127/59 (81) 98 07/13/17 23:43 63 07/13/17 20:37 21 07/13/17 20:00 Room Air 07/13/17 20:00 97.9 77 19 133/60 (84) 99 07/13/17 19:43 98 07/13/17 16:00 97.6 80 20 144/65 (91) 97 07/13/17 16:00 80 I/O 07/13/17 07/13/17 07/13/17 07/14/17 07/14/17 07/14/17 07:00 15:00 23:00 07:00 15:00 23:00 Intake Total 0 ml 480 ml 240 ml Output Total 890 ml 200 ml Balance -890 ml 480 ml 40 ml Intake Oral 0 ml 480 ml 240 ml Output Urine Total 890 ml 200 ml # Voids 1 4 4 # Bowel Movements 1 2 3 Result Diagram: 07/14/17 0742 07/14/17 0742 Objective Remarks GENERAL: Elderly male laying comfortably in bed in [place]. SKIN: Warm and dry. HEENT: AT/NC. Pupils equal and round. Sclera with injection bilaterally. MMM. NECK: Supple no tender LAD or JVD. HEART: RRR no m/r/g. LUNGS: CTAB without wheezes or crackles. ABDOMEN: +BS, soft, NT, ND. EXTREMITIES: No LE edema. NEURO: Awake and alert. Nonfocal. A/P Assessment and Plan 86 YOWM with recurrent SVT, HTN, macular degeneration, TIAs, leukemia, MRSA L flank wound, and anemia admitted on 07/09 for another episode of SVT. 1. SVT - Resolved after cardioversion and with amiodarone - Continue amiodarone - Telemetry - Cardiology and EP following - Planning for pacemaker placement now that ID has ruled out active infection 2. ELIZABETH - Creatinine bumped up to 1.54 today - Provide gentle IV fluid hydration as patient appetite hasn't been the greatest - Avoid nephrotoxic agents 3. L flank wound with MRSA - Chronic and not acutely infected - Remains afebrile with no leukocytosis - Recently treated with IV daptomycin followed by PO Bactrim - Blood cultures negative - Examined by ID who recommends monitoring, no need for abx at this time - Chlorhexidine baths in anticipation of possible pacemaker placement 4. Mild delirium - May be sundowning - Advised family to visit as much as possible and keep the room bright during the day and reduce stimulation at night 5. CML, anemia - Continue Imatinib - Monitor CBC - Continue ferrous sulfate 6. Hypothyroidism - Recently started on levothyroxine - TSH elevated at 11.8 but may be related to acute illness - Continue current dose of levothyroxine and repeat TSH as outpatient after discharge 7. History of frequent falls - PT following 8. HLD - Continue home statin 9. History of TIAs - Resume Plavix DVT prophylaxis: Michelle Yi MD Jul 14, 2017 13:46
[2017-07-14] MEDS: SODIUM CHLOR 0.9% 1000 ML INJ 1,000 ML IV SCH (14:00)
[2017-07-14] MEDS: ATORVASTATIN 10 MG TAB PO SCH (20:52)
[2017-07-15] VITALS: BP 128/67; PULSE 62; RESP 19; TEMP 97; O2SAT 99
[2017-07-15 03:42] VITALS: PULSE 63
[2017-07-15 04:00] VITALS: BP 122/63; PULSE 66; RESP 20; TEMP 98.6; O2SAT 99
[2017-07-15] MEDS: CHLORHEXIDINE GLUCONATE 2 % 1 PACK (2 CLOTHS) TOPICAL SCH (04:00)
[2017-07-15] MEDS: SODIUM CHLOR 0.9% 1000 ML INJ 1,000 ML IV SCH (04:04)
[2017-07-15] MEDS: LEVOTHYROXINE SODIUM 25 MCG TAB PO SCH (06:20)
[2017-07-15] MEDS: AMIODARONE 200 MG TAB PO SCH (06:20)
[2017-07-15 08:00] VITALS: BP 129/60; PULSE 64; RESP 16; TEMP 97.9; O2SAT 97
[2017-07-15] MEDS: SODIUM CHLORIDE 0.9% FLUSH 10 ML FLUSH IV FLUSH SCH (09:00)
[2017-07-15] MEDS: [UNRECOGNIZED DRUG - OTHER] PO SCH (09:00)
[2017-07-15] MEDS: FERROUS SULFATE 325 MG (65 MG ELEMENTAL IRON) TAB PO SCH (09:35)
[2017-07-15] MEDS: FAMOTIDINE 20 MG TAB PO SCH (09:36)
[2017-07-15] MEDS: MIDODRINE 5 MG TAB PO SCH (09:36)
[2017-07-15] MEDS: CLOPIDOGREL 75 MG TAB PO SCH (09:36)
[2017-07-15] MEDS: ENOXAPARIN SODIUM 40 MG/0.4 ML SYRINGE SQ SCH (09:37)
--- NOTE | 2017-07-15 11:17 | HHI.PR ---
Subjective Remarks Pt seen and examined. AFVSS. No further runs of SVTs. Patient's son and masseur/masseuse present in the room. His son is frustrated because he would like pacemaker placement/ablation to be done in house. The patient has no acute complaints and states he is ready to also proceed with pacemaker placement. He denies CP or palpitations. No N/V. Eating well. No fever or chills. Objective Vital Signs Date Time Temp Pulse Resp B/P (MAP) Pulse Ox O2 Delivery O2 Flow Rate FiO2 07/15/17 08:00 97.9 64 16 129/60 (83) 97 07/15/17 04:00 Room Air 07/15/17 04:00 98.6 66 20 122/63 (82) 99 07/15/17 03:42 63 07/15/17 00:00 97.0 62 19 128/67 (87) 99 07/15/17 00:00 Room Air 07/14/17 23:45 62 07/14/17 20:00 Room Air 07/14/17 20:00 98.0 68 18 137/62 (87) 99 07/14/17 19:46 70 07/14/17 16:00 64 07/14/17 16:00 97.4 73 18 147/67 (93) 99 07/14/17 16:00 Room Air 07/14/17 12:00 97.5 61 18 127/57 (80) 97 07/14/17 12:00 Room Air 07/14/17 12:00 66 I/O 07/14/17 07/14/17 07/14/17 07/15/17 07/15/17 07/15/17 07:00 15:00 23:00 07:00 15:00 23:00 Intake Total 240 ml 480 ml 1625 ml Output Total 200 ml 300 ml 800 ml Balance 40 ml 180 ml 825 ml Intake Oral 240 ml 480 ml 625 ml IV Total 1000 ml Output Urine Total 200 ml 300 ml 800 ml # Voids 4 3 # Bowel Movements 3 4 0 Result Diagram: 07/14/17 0742 07/14/17 0742 Objective Remarks GENERAL: Elderly male laying comfortably in bed in [facility]. SKIN: Warm and dry. Skin of back examined no infected or open wounds. HEENT: AT/NC. Pupils equal and round. Sclera with injection bilaterally. MMM. NECK: Supple no tender LAD or JVD. HEART: RRR no m/r/g. LUNGS: CTAB without wheezes or crackles. ABDOMEN: +BS, soft, NT, ND. EXTREMITIES: No LE edema. NEURO: Awake and alert. Nonfocal. A/P Assessment and Plan 86 YOWM with recurrent SVT, HTN, macular degeneration, TIAs, leukemia, MRSA L flank wound, and anemia admitted on 07/09 for another episode of SVT. 1. SVT - Resolved after cardioversion and with amiodarone - Continue amiodarone - Telemetry - Cardiology and EP following - Planning for pacemaker placement now that ID has ruled out active infection - Will place a call to Dr. Moreau today to discuss case 2. ELIZABETH - Creatinine bumped up to 1.54 yesterday and the patient was given IV fluids - Avoid nephrotoxic agents 3. L flank wound with h/o MRSA - No open wounds on back - Remains afebrile with no leukocytosis - Recently treated with IV daptomycin followed by PO Bactrim - Blood cultures negative - Examined by ID who recommends monitoring, no need for abx at this time - Chlorhexidine baths in anticipation of possible pacemaker placement 4. Mild delirium - May be owning - Advised family to visit as much as possible and keep the room bright during the day and reduce stimulation at night 5. CML, anemia - Continue Imatinib - Monitor CBC - Continue ferrous sulfate 6. Hypothyroidism - Recently started on levothyroxine - TSH elevated at 11.8 but may be related to acute illness - Continue current dose of levothyroxine and repeat TSH as outpatient after discharge 7. History of frequent falls - PT following 8. HLD - Continue home statin 9. History of TIAs - Resume Plavix DVT prophylaxis: Michelle Yi MD Jul 15, 2017 11:17
[2017-07-15 12:00] VITALS: BP 128/71; PULSE 64; RESP 16; TEMP 97.5; O2SAT 94
[2017-07-15] MEDS ORDERED: AMIO200T PO (12:58)
--- NOTE | 2017-07-15 12:58 | HHI.DCPOC ---
Discharge Care Plan Diagnosis: (1) SVT (supraventricular tachycardia) (2) Hypothyroidism (3) Anemia (4) Leukemia Goals to Promote Your Health * To prevent worsening of your condition and complications * To maintain your health at the optimal level Directions to Meet Your Goals Take your medications as prescribed Follow your dietary instruction Follow activity as directed Keep your appointments as scheduled Take your immunizations and boosters as scheduled If your symptoms worsen call your PCP, if no PCP go to Urgent Care Center or Emergency Room Smoking is Dangerous to Your Health. Avoid second hand smoke Call the 24-hour hour crisis hotline for domestic abuse at Michelle Coulter MD Jul 15, 2017 12:58
--- NOTE | 2017-07-15 13:05 | HHI.DS ---
Discharge Summary Admission Date Jul 09, 2017 at 10:45 Discharge Date: Jul 15, 2017 Admitting Diagnosis Tachydysrhythmia (1) SVT (supraventricular tachycardia) ICD Code: I47.1 - Supraventricular tachycardia Procedures Cardioversion 07/09 Brief History - From Admission History of Present Illness HPI This is a 86-year-old male that presented from [facility] assisted living facility to the ED today brought in by EMS, apparently has been complaining of palpitations, shaking episodes, and EMS found that he was going into SVTs. He received adenosine without significant improvement, cardioverted x 1 reportedly to Afib. The patient continued to revert into SVTs in the ED with the rate of 180 bpm. An additional cardioversion was done in the ER. However, he continued to have intermittent episodes and amiodarone 150mg bolus was given in the ED with improvement of dysrhythmias. Critical care medicine was consulted for management. Upon my arrival to the ED the patient was noted to be in sinus rhythm with a heart rate of 70 and a BP 107/59. Medical history obtained by patient's 2 sons at bedside revealed that the patient has had issues with heart rate control for the past 3 months with adjustments of his metoprolol medication. He is well known patient of Dr. Kumari, cardiology. Recently 1 week ago, Dr. Moreau, EPS was consulted for possible ablation. The patient was recently hospitalized last week at [facility] for SVT, and was found to have preexist wound on his left flank area that was noted to be MRSA positive. The patient medical history also significant for recent diagnosis of TIAs 04/2017, and continues on aspirin and Plavix. The patient medical history also significant for leukemia currently on Gleevec and seen by Dr. Rich, recently diagnosed with hypothyroidism approximately 1 month ago and was started on Synthroid. The patient will be admitted to ICU. I contacted and discussed the case patient will be initiated on amiodarone infusion, cardiology has also been consulted History [facility] Past Medical History Medical History: Unable to Obtain Arthritis: No Asthma: No Autoimmune Disease: No Heart Rhythm Problems: No Cardiovascular Problems: No High Cholesterol: No Chest Pain: No Congestive Heart Failure: No COPD: No Cerebrovascular Accident: No GERD: No Headaches: No Hepatitis: No Hiatal Hernia: No Hypertension: No Neurologic: No Respiratory: No Myocardial Infarction: No Seizures: No Sleep Apnea: No Ulcer: No Past Surgical History Surgical History: Unable to Obtain Abdominal Surgery: No AICD: No Cardiac Surgery: No Ear Surgery: No Endocrine Surgery: No Eye Surgery: No Genitourinary Surgery: No Gynecologic Surgery: No Oral Surgery: No Pacemaker: No Thoracic Surgery: No Social History Alcohol Use: No Tobacco Use: No Substance Use: No Allergies-Medications Allergies-Medications (Allergen,Severity, Reaction): Coded Allergies: No Known Allergies (Verified Allergy, Severe, 07/09/17) Reported Meds & Prescriptions Reported Meds & Active Scripts Active Reported Hydrocodone-Acetaminophen 5-300 Mg Tab 1 Tab PO Q6H PRN Sulfamethoxazole-Trimethoprim 800-160 Mg Tab 1 Tab PO BID Amoxicillin 500 Mg Cap 500 Mg PO Q12HR Ondansetron (Ondansetron HCl) 4 Mg Tab 4 Mg PO Q6HR PRN Feosol (Ferrous Sulfate) 325 Mg (65 Mg Iron) Tab 650 Mg PO BIDPC Levothyroxine (Levothyroxine Sodium) 25 Mcg Tab 25 Mcg PO DAILY Dutasteride-Tamsulosin 0.5-0.4 Mg Cap 1 Cap PO DAILY Metoprolol Tartrate 25 Mg Tab 12.5 Mg PO BID Atorvastatin (Atorvastatin Calcium) 10 Mg Tab 10 Mg PO HS Midodrine 10 Mg Tab 10 Mg PO BID Imatinib (Imatinib Mesylate) 100 Mg Tab 400 Mg PO DAILY Colace (Docusate Sodium) 100 Mg Capsule 100 Mg PO BID PRN Clopidogrel (Clopidogrel Bisulfate) 75 Mg Tab 75 Mg PO DAILY ROS Review of Systems ROS Limitations: Altered Mental Status (Status post Versed by EMS) CBC/BMP: 07/14/17 0742 07/14/17 0742 Significant Findings Laboratory Tests Test 07/13/17 17:35 07/14/17 07:42 Thyroid Stimulating Hormone 3rd Gen 11.800 uIU/ML (0.358-3.740) Red Blood Count 3.14 MIL/MM3 (4.50-5.90) Hemoglobin 10.8 GM/DL (13.0-17.0) Hematocrit 31.0 % (39.0-51.0) Mean Corpuscular Hemoglobin 34.4 PG (27.0-34.0) Platelet Count 148 TH/MM3 (150-450) Monocytes (%) (Auto) 10.3 % (0.0-8.0) Eosinophils (%) (Auto) 5.2 % (0.0-4.0) Lymphocytes # (Auto) 0.9 TH/MM3 (1.0-4.8) Blood Urea Nitrogen 19 MG/DL (7-18) Creatinine 1.54 MG/DL (0.60-1.30) Calcium Level 8.3 MG/DL (8.5-10.1) Estimat Glomerular Filtration Rate 43 ML/MIN (>89) Imaging Chest X-Ray 07/09/17 0956 Signed Impressions: Service Date/Time: Sunday, July 09, 2017 09:33 - CONCLUSION: Interstitial densities left upper lobe and left lower lobe could be chronic Ronni Montserrat East MD PE at Discharge GENERAL: NAD, A&Ox3 HEAD: Normocephalic. NECK: Supple, trachea midline. No lymphadenopathy. EYES: No scleral icterus. No injection or drainage. CARDIOVASCULAR: Regular rate and rhythm without murmurs, gallops, or rubs. RESPIRATORY: Breath sounds equal bilaterally. No accessory muscle use. GASTROINTESTINAL: Abdomen soft, non-tender, nondistended. MUSCULOSKELETAL: No cyanosis, or edema. SKIN: Warm and dry. NEURO: No focal neurological deficits. Hospital Course 86 YOWM with recurrent SVT, HTN, macular degeneration, TIAs, leukemia, MRSA L flank wound, and anemia admitted on 07/09 for another episode of SVT. 1. SVT - Resolved after cardioversion and with amiodarone infusion in the ER/ICU - Transitioned to PO amiodarone - [employer] consulted; wanted to rule out active infection with history of MRSA wound on L flank and perform pacemaker placement with ablation as an outpatient 2. ELIZABETH - Resolved with IV fluids - Avoid nephrotoxic agents 3. L flank wound with h/o MRSA - No open wounds on back - Remained afebrile with no leukocytosis - Recently treated with IV daptomycin followed by PO Bactrim as outpatient - Blood cultures negative - Examined by ID who recommended monitoring, no need for abx at this time - Chlorhexidine baths in anticipation of possible pacemaker placement [facility]15 after further discussing case with Dr. Moreau. The plan was to proceed with pacemaker/ ablation later in the week and his office would contact the patient. Pt Condition on Discharge: Stable Discharge Disposition: ACLF/ASIF Discharge Time: > 30 minutes Discharge Instructions DIET: Follow Instructions for: Heart Healthy Diet Activities you can perform: Continue Bedrest Other Activity Instructions: Can participate with PT and ambulate with assistance Follow up Referrals: Cardiology - 1 Week with Shirlene Moreau MD PCP Follow-up - 1 Week New Medications: Amiodarone (Amiodarone) 200 Mg Tab 400 MG PO Q8H for HEART RHYTHM CONTROL, #90 TAB Continued Medications: Atorvastatin (Atorvastatin) 10 Mg Tab 10 MG PO HS for Cholesterol Management, #30 TAB 0 Refills Clopidogrel (Clopidogrel) 75 Mg Tab 75 MG PO DAILY for Blood Clot Prevention, #30 TAB 0 Refills Docusate Sodium (Colace) 100 Mg Capsule 100 MG PO BID PRN for CONSTIPATION, #60 CAP 0 Refills Dutasteride-Tamsulosin (Dutasteride-Tamsulosin) 0.5-0.4 Mg Cap 1 CAP PO DAILY for Manage Prostate Problems, #30 CAP 0 Refills Ferrous Sulfate (Feosol) 325 Mg (65 Mg Iron) Tab 650 MG PO BIDPC for Nutritional Supplement, #60 TAB 0 Refills Hydrocodone-Acetaminophen (Hydrocodone-Acetaminophen) 5-300 Mg Tab 1 TAB PO Q6H PRN for PAIN, TAB 0 Refills Imatinib (Imatinib) 100 Mg Tab 400 MG PO DAILY Levothyroxine (Levothyroxine) 25 Mcg Tab 25 MCG PO DAILY for Thyroid, #30 TAB 0 Refills Metoprolol Tartrate (Metoprolol Tartrate) 25 Mg Tab 12.5 MG PO BID, #60 TAB 0 Refills Midodrine (Midodrine) 10 Mg Tab 10 MG PO BID for Control Low Blood Pressure, #90 TAB 0 Refills Ondansetron (Ondansetron) 4 Mg Tab 4 MG PO Q6HR PRN for NAUSEA OR VOMITING Discontinued Medications: Amoxicillin (Amoxicillin) 500 Mg Cap 500 MG PO Q12HR for Infection, CAP 0 Refills Sulfamethoxazole-Trimethoprim (Sulfamethoxazole-Trimethoprim) 800-160 Mg Tab 1 TAB PO BID for Infection, TAB 0 Refills Michelle Coulter MD Jul 15, 2017 13:05
--- NOTE | 2017-07-15 15:59 | HHI.FF ---
Face to Face Verification Diagnosis: (1) Weakness (2) SVT (supraventricular tachycardia) (3) Macular degeneration of both eyes (4) Leukemia (5) Hypothyroidism Physical Therapy Order: Evaluate and Treat, Improve ambulation, Strength and gait training I have seen patient Edward Alas on 07/15/17. My clinical findings support the need for the requested home health care services because: Deconditioned w/ increased weakness High risk of falls I certify that my clinical findings support that this patient is homebound because: Unsteady gait/balance Michelle Coulter MD Jul 15, 2017 15:59
== END 2017-07-15 16:47 | DRG 309 ==
LOC: NEPE 09:12 → NEDA 10:45 → HIME 13:15 → N04B 07-11 13:38
PROVIDERS: ADMIT Family Medicine; ATTEND Family Medicine
PROC: 5A2204Z Restoration of Cardiac Rhythm, Single (ICD-10-PCS; principal; 2017-07-09)
DX: I47.1 Supraventricular tachycardia (principal); N17.9 Acute kidney failure, unspecified; C92.10 Chronic myeloid leukemia, BCR/ABL-positive, not having achieved remission; F05 Delirium due to known physiological condition; I95.9 Hypotension, unspecified; D63.8 Anemia in other chronic diseases classified elsewhere; I48.91 Unspecified atrial fibrillation; E03.9 Hypothyroidism, unspecified; N18.9 Chronic kidney disease, unspecified; I12.9 Hypertensive chronic kidney disease with stage 1 through stage 4 chronic kidney disease, or unspecified chronic kidney disease; G89.4 Chronic pain syndrome; E78.5 Hyperlipidemia, unspecified; E78.00 Pure hypercholesterolemia, unspecified; N40.0 Benign prostatic hyperplasia without lower urinary tract symptoms; I25.10 Atherosclerotic heart disease of native coronary artery without angina pectoris; R29.6 Repeated falls; H35.30 Unspecified macular degeneration; H04.129 Dry eye syndrome of unspecified lacrimal gland; Z22.322 Carrier or suspected carrier of Methicillin resistant Staphylococcus aureus; Z86.14 Personal history of Methicillin resistant Staphylococcus aureus infection; Z86.73 Personal history of transient ischemic attack (TIA), and cerebral infarction without residual deficits; Z91.81 History of falling
CPT/HCPCS: 36600; 71045; 80048; 80053; 82550; 82552; 82805; 83605; 83735; 84100; 84443; 84484; 85025; 85610; 85730; 87040; 87641; 93005; 99291; J0282; J1650; J2405; J7030; J7050

== ENCOUNTER 2017-09-26 14:19 | Inpatient (IN) ==
--- NOTE | 2017-09-26 15:13 | ED ---
HPI General Chief complaint: Medical Clearance Stated complaint: confusion/ evac Time Seen by Provider: 09/26/17 14:29 Source: patient Mode of arrival: EMS Limitations: no limitations History of Present Illness HPI Narrative: PATIENT APPARENTLY DEVELOPING GEN WEAKNESS AND LESS ACTIVE, ASIF SENT HIM FOR FURTHER EVALUATION. PREVIOUS H/O TIA, AFIB AND GI BLEED complaint: medical clearance requested Onset (ago): day(s) (4) Reason for Medical Clearance: medical condition (GEN WEAKNESS) Place: home Alleged Intoxication: No Compliant with Home Medications: Yes Traumatic Symptoms: denies traumatic injury Associated Symptoms: denies other symptoms Treatments Prior to Arrival: none Home Medications Medication Instructions Recorded Confirmed alprazolam 0.5 mg PO DAILY PRN 09/26/17 09/26/17 atorvastatin 10 mg PO DAILY 09/26/17 09/26/17 calcium carbonate [Calcium 500] 500 mg PO DAILY 09/26/17 09/26/17 clopidogrel 75 mg PO DAILY 09/26/17 09/26/17 dutasteride 0.5 mg PO DAILY 09/26/17 09/26/17 ferrous sulfate [Feosol] 325 mg PO BID 09/26/17 09/26/17 furosemide [Lasix] 20 mg PO DAILY 09/26/17 09/26/17 imatinib 400 mg PO DAILY 09/26/17 09/26/17 levothyroxine 25 mcg PO DAILY 09/26/17 09/26/17 midodrine 10 mg PO BID 09/26/17 09/26/17 ondansetron 8 mg PO TID PRN 09/26/17 09/26/17 potassium chloride [Klor-Con 10] 10 meq PO DAILY 09/26/17 09/26/17 white petrolatum-mineral oil 09/26/17 [Retaine PM] Allergies Allergy/AdvReac Type Severity Reaction Status Date / Time adhesive AdvReac Rash Verified 09/26/17 14:42 Review of Systems Except as stated in HPI: all other systems reviewed are negative [facility] Medical History Medical History GI bleed (Acute) Pacemaker (Acute) TIA (transient ischemic attack) (Acute) Social History Social History Substance History: No History of Abuse Second Hand Smoke Exposure: No Smoking Status: Never smoker How Often Do You Have a Drink Containing Alcohol: Monthly or less Recent [facility] within the Last 8 Weeks: No Recent Out of Country Travel within the Last 8 Weeks: No Immunization History Tetanus Immunization: >5 Years Hx Influenza Vaccine This Season: Yes Exam Narrative Exam Narrative: General: The patient is [ELDERLY, BED BOUND, REQUIRES ASSISTANCE TO SIT UP]. Head and Neck exam: Head is normocephalic atraumatic. Eyes: EOMI, pupils are equal round and reactive to light. Nose: Midline septum with pink mucous membranes Mouth: Dentition unremarkable. Moist mucus membranes. Posterior oropharynx is not erythematous. No tonsillar hypertrophy. Uvula midline. Airway patent. Neck: No palpable lymphadenopathy. No nuchal rigidity. No thyromegaly. Cardiovascular: Regular rate and rhythm without murmurs, gallops, or rubs. No pulse deficit to the extremities. Lungs: Clear to auscultation bilaterally. No wheezes, rhonchi, or rales. Abdomen: Soft, without tenderness to palpation in all 4 quadrants of the abdomen. No guarding, rebound, or rigidity. Negative [place] sign. trace quaiac positive without melena/hematochezia Extremities: No clubbing, cyanosis, or edema. 2+ pulses in all 4 extremities. Back: No spinous process tenderness to palpation. No costovertebral angle tenderness to palpation. Neurologic Exam: Cranial nerves 2-12 were intact on exam. Strength is 5/5 in all 4 extremities. No sensory deficits noted. No dysdiadochokinesis. Good finger to nose and Heel to altamirano bilaterally. Skin Exam: No rash noted. Intact skin that is warm and dry. Course Initial Documented Vital Signs Temperature 97.9 F 09/26/17 14:26 Pulse Rate 75 09/26/17 14:26 Respiratory Rate 18 09/26/17 14:26 Blood Pressure 116/58 L 09/26/17 14:26 Pulse Oximetry 99 09/26/17 14:26 Last Documented Vital Signs Temperature 97.9 F 09/26/17 14:34 Pulse Rate 69 09/26/17 18:00 Respiratory Rate 18 09/26/17 18:00 Blood Pressure 111/57 L 09/26/17 18:00 Pulse Oximetry 98 09/26/17 18:00 Medical Decision Making Differential Diagnosis Differential Diagnosis: ANEMIA V DEHYDRATION V ICH V STEMI V PNA V UTI Lab Data Lab results reviewed: Yes I reviewed the patient's lab results. Lab results narrative: gradual anemia from june 2017 hb 11 acute on chronic renal insufficiency Result diagrams: 09/26/17 13:20 09/26/17 13:20 Lab Results 09/26/17 09/26/17 09/26/17 Range/Units 13:20 13:20 13:20 WBC 14.9 H (4.0-11.0) th/mm3 RBC 2.95 L (4.50-5.90) mil/mm3 Hgb 9.8 L (13.0-17.0) gm/dL Hct 29.2 L (39.0-51.0) % MCV 98.7 (80.0-100.0) fL MCH 33.1 (27.0-34.0) pg MCHC 33.5 (32.0-36.0) % RDW 20.8 H (11.6-17.2) % Plt Count 178 (150-450) th/mm3 MPV 9.7 (7.0-11.0) fL Prelim Diff (Auto) Slide review pending Neut % (Auto) 90.4 H (16.0-70.0) % Lymph % (Auto) 2.0 L (9.0-44.0) % [place] % (Auto) 7.1 (0.0-8.0) % Eos % (Auto) 0.0 (0.0-4.0) % Baso % (Auto) 0.5 (0.0-2.0) % Neut # (Auto) 13.5 H (1.8-7.7) th/mm3 Lymph # (Auto) 0.3 L (1.0-4.8) th/mm3 [place] # (Auto) 1.1 H (0.0-0.9) th/mm3 Eos # (Auto) 0.0 (0.0-0.4) th/mm3 Baso # (Auto) 0.1 (0.0-0.2) th/mm3 WBC Differential . Diff Scan Auto diff confirmed Differential Comment . Platelet Estimate Normal (Normal) Platelet Morphology Normal (Normal) Spherocytes 1+ H (None) Ovalocytes 1+ H (None) Sodium 138 (136-145) meq/L Potassium 5.7 H (3.5-5.1) meq/L Chloride 101 (98-107) meq/L Carbon Dioxide 28.6 (21.0-32.0) meq/L Anion Gap 8 (5-15) meq/L BUN 27 H (7-18) mg/dL Creatinine 2.48 H (0.60-1.30) mg/dL Estimated GFR 25 L (>89) mL/min Random Glucose 103 (74-106) mg/dL Calcium 7.8 L (8.5-10.1) mg/dL Total Bilirubin 0.7 (0.2-1.0) mg/dL AST 140 H (15-37) U/L ALT 77 (12-78) U/L Alkaline Phosphatase 344 H (45-117) U/L Total Creatine Kinase 222 (39-308) U/L Troponin I 0.09 H (0.02-0.05) ng/mL B-Natriuretic Peptide 641 H (0-100) pg/mL Total Protein 5.2 L (6.4-8.2) g/dL Albumin 2.2 L (3.4-5.0) g/dL TSH 6.430 H (0.358-3.740) uIU/mL Urine Color (Yellw/Straw) Urine Clarity (Clear) Urine pH (5.0-8.5) Ur Specific [place] (1.002-1.035) Urine Protein (Neg-Trace) mg/dL Urine Glucose (UA) (Negative) mg/dL Urine Ketones (Negative) mg/dL Urine Occult Blood (Negative) Urine Nitrate (Negative) Urine Bilirubin (Negative) Urine Urobilinogen (Less than 2) mg/dL Ur Leukocyte Esterase (Negative) Urine RBC (0-3) /hpf Urine WBC (0-5) /hpf Amorphous Sediment (None) /hpf Urine Bacteria (None) /hpf Hyaline Casts (0-3) /lpf Urine Mucus (Occasional) /lpf Micro UA Comment Urine Culture Comments 09/26/17 Range/Units 17:04 WBC (4.0-11.0) th/mm3 RBC (4.50-5.90) mil/mm3 Hgb (13.0-17.0) gm/dL Hct (39.0-51.0) % MCV (80.0-100.0) fL MCH (27.0-34.0) pg MCHC (32.0-36.0) % RDW (11.6-17.2) % Plt Count (150-450) th/mm3 MPV (7.0-11.0) fL Prelim Diff (Auto) Neut % (Auto) (16.0-70.0) % Lymph % (Auto) (9.0-44.0) % [place] % (Auto) (0.0-8.0) % Eos % (Auto) (0.0-4.0) % Baso % (Auto) (0.0-2.0) % Neut # (Auto) (1.8-7.7) th/mm3 Lymph # (Auto) (1.0-4.8) th/mm3 [place] # (Auto) (0.0-0.9) th/mm3 Eos # (Auto) (0.0-0.4) th/mm3 Baso # (Auto) (0.0-0.2) th/mm3 WBC Differential Diff Scan Differential Comment Platelet Estimate (Normal) Platelet Morphology (Normal) Spherocytes (None) Ovalocytes (None) Sodium (136-145) meq/L Potassium (3.5-5.1) meq/L Chloride (98-107) meq/L Carbon Dioxide (21.0-32.0) meq/L Anion Gap (5-15) meq/L BUN (7-18) mg/dL Creatinine (0.60-1.30) mg/dL Estimated GFR (>89) mL/min Random Glucose (74-106) mg/dL Calcium (8.5-10.1) mg/dL Total Bilirubin (0.2-1.0) mg/dL AST (15-37) U/L ALT (12-78) U/L Alkaline Phosphatase (45-117) U/L Total Creatine Kinase (39-308) U/L Troponin I (0.02-0.05) ng/mL B-Natriuretic Peptide (0-100) pg/mL Total Protein (6.4-8.2) g/dL Albumin (3.4-5.0) g/dL TSH (0.358-3.740) uIU/mL Urine Color [place] (Yellw/Straw) Urine Clarity Hazy H (Clear) Urine pH 5.0 (5.0-8.5) Ur Specific [place] 1.014 (1.002-1.035) Urine Protein 30 H (Neg-Trace) mg/dL Urine Glucose (UA) Negative (Negative) mg/dL Urine Ketones Negative (Negative) mg/dL Urine Occult Blood Negative (Negative) Urine Nitrate Negative (Negative) Urine Bilirubin Negative (Negative) Urine Urobilinogen 4 or greater (Less than 2) mg/dL Ur Leukocyte Esterase Negative (Negative) Urine RBC 1 (0-3) /hpf Urine WBC 4 (0-5) /hpf Amorphous Sediment Rare H (None) /hpf Urine Bacteria Rare H (None) /hpf Hyaline Casts 30 (0-3) /lpf Urine Mucus Few H (Occasional) /lpf Micro UA Comment Culture not ind Urine Culture Comments Culture not ind Imaging Data Attestation: I personally reviewed and interpreted this imaging study as follows : Radiologist's impression: ITS Impressions Chest X-Ray 09/26/17 15:03 CONCLUSION: 1. There is some chronic interstitial changes bilaterally. 2. No new or acute pulmonary infiltrates. Head CT 09/26/17 15:03 CONCLUSION: No acute intracranial findings Discharge Plan Discharge Disposition Patient Disposition: 30 Still Patient Discharge Condition Condition: Fair Discharge Details Discharge Problem: Hypothyroid, Acute on chronic renal insufficiency, Cardiac enzymes elevated Physicians Team ED Provider: Donald Leslie Primary Care Provider: Lizzeth Khan Rxs /Orders / Referrals /Forms Prescriptions: No Action atorvastatin 10 mg Tablet 10 mg PO DAILY RF: 0 clopidogrel 75 mg Tablet 75 mg PO DAILY RF: 0 ondansetron 8 mg Tablet,Disintegrating 8 mg PO TID PRN (Reason: Nausea) RF: 0 ferrous sulfate [Feosol] 325 mg (65 mg iron) Tablet 325 mg PO BID RF: 0 midodrine 10 mg Tablet 10 mg PO BID RF: 0 dutasteride 0.5 mg Capsule 0.5 mg PO DAILY RF: 0 imatinib 400 mg Tablet 400 mg PO DAILY RF: 0 white petrolatum-mineral oil [Retaine PM] 80-20 % Ointment RF: 0 levothyroxine 25 mcg Capsule 25 mcg PO DAILY RF: 0 potassium chloride [Klor-Con 10] 10 mEq Tablet Extended Release 10 meq PO DAILY RF: 0 alprazolam 0.5 mg Tablet 0.5 mg PO DAILY PRN (Reason: Anxiety) RF: 0 calcium carbonate [Calcium 500] 500 mg calcium (1,250 mg) Tablet 500 mg PO DAILY RF: 0 furosemide [Lasix] 20 mg Tablet 20 mg PO DAILY RF: 0 Discharge Interventions Interventions: Vital Signs Last Done: 09/26/17 18:00 Status ED Status: With Doctor
--- NOTE | 2017-09-26 15:34 | XR ---
EXAM DATE: 09/26/2017 3:29 PM EDT AGE/SEX: 86 years / Male INDICATIONS: Evaluate for pneumonia. CLINICAL DATA: This is the patient's initial encounter. Patient reports that signs and symptoms have been present for 1 day and indicates a pain score of 0/10. MEDICAL/SURGICAL HISTORY: None. Pacemaker. COMPARISON: [facility] [place], [place], CHEST SINGLE AP, 07/09/2017. . FINDINGS: There is some hypoaeration of both lung pat most likely from poor inspiration. There are some shaper machine hand obdulia interstitial changes bilaterally. No new or acute pulmonary infiltrates are demonstrated. The hea rt size is within normal limits. There is a pacemaker overlying the left chest. There is no pneumotho rax. The bony structures are stable. No definite pleural effusions. CONCLUSION: 1. There is some chronic interstitial changes bilaterally. 2. No new or acute pulmonary infiltrates. Electronically signed by: Arturo Davalos MD 09/26/2017 3:33 PM EDT
[2017-09-26 16:00] LABS: Baso # (Auto) 0.1 th/mm3 (0.0-0.2); Baso % (Auto) 0.5 % (0.0-2.0); Hematocrit 29.2 % (39.0-51.0); Hemoglobin 9.8 gm/dL (13.0-17.0); Lymph # (Auto) 0.3 th/mm3 (1.0-4.8); Mean Corpuscular HGB Conc 33.5 % (32.0-36.0); Mean Corpuscular Hemoglobin 33.1 pg (27.0-34.0); Mean Corpuscular Volume 98.7 fL (80.0-100.0); Mean Platelet Volume 9.7 fL (7.0-11.0); Mono # (Auto) 1.1 th/mm3 (0.0-0.9); Mono % (Auto) 7.1 % (0.0-8.0); Neut # (Auto) 13.5 th/mm3 (1.8-7.7); Neut % (Auto) 90.4 % (16.0-70.0); Platelet Count 178 th/mm3 (150-450); Red Blood Count 2.95 mil/mm3 (4.50-5.90); Red Cell Distribution Width 20.8 % (11.6-17.2); White Blood Count 14.9 th/mm3 (4.0-11.0)
[2017-09-26 16:34] LABS: Alanine Aminotransferase 77 U/L (12-78); Albumin 2.2 g/dL (3.4-5.0); Alkaline Phosphatase 344 U/L (45-117); Anion Gap 8 meq/L (5-15); Aspartate Aminotransferase 140 U/L (15-37); Blood Urea Nitrogen 27 mg/dL (7-18); Calcium 7.8 mg/dL (8.5-10.1); Carbon Dioxide 28.6 meq/L (21.0-32.0); Chloride 101 meq/L (98-107); Creatine Kinase 222 U/L (39-308); Glomerular Filtration Rate 25 mL/min (>89); Glucose,Random 103 mg/dL (74-106); Sodium 138 meq/L (136-145); Total Protein 5.2 g/dL (6.4-8.2); Troponin I 0.09 ng/mL (0.02-0.05)
[2017-09-26 16:35] LABS: Ovalocytes 1+; Platelet Estimate Normal (Normal); Platelet Morphology Normal (Normal); Spherocytes 1+
[2017-09-26 16:51] LABS: Potassium 5.7 meq/L (3.5-5.1)
[2017-09-26 17:21] LABS: Amorphous Sediment,Urine Rare /hpf; Bacteria,Urine Rare /hpf; Bilirubin,Urine Negative (Negative); Clarity,Urine Hazy (Clear); Color,Urine Amber (Yellw/Straw); Glucose,Urine (UA) Negative (Negative); Hyaline Casts,Urine 30 /lpf (0-3); Leukocyte Esterase,Urine Negative (Negative); Mucus,Urine Few /lpf (Occasional); Nitrite,Urine Negative (Negative); Specific Gravity,Urine 1.014 (1.002-1.035); Urobilinogen,Urine 4 or Greater mg/dL (Less than 2)
[2017-09-26] MEDS ORDERED: RESP: Albuterol Concentrated 2.5 MG/0.5 ML Neb NEB ONE (18:50)
[2017-09-26] MEDS ORDERED: Temazepam 15 MG Capsule PO PRN (19:43)
[2017-09-26] MEDS ORDERED: Bisacodyl 10 MG Supp RECTAL PRN (19:43)
[2017-09-26] MEDS ORDERED: Sodium Polystyrene Sulfonate/Sorbitol Liq 15 GM/60 ML UDC PO ONE (19:47)
--- NOTE | 2017-09-26 20:55 | US ---
EXAM DATE: 09/26/2017 8:50 PM EDT AGE/SEX: 86 years / Male INDICATIONS: Hydronephrosis. CLINICAL DATA: This is the patient's initial encounter. Patient reports that signs and symptoms have been present for 1 day and indicates a pain score of 0/10. MEDICAL/SURGICAL HISTORY: . GI Bleed. TIA. Pacemaker. COMPARISON: No prior exams available for comparison. MEASUREMENTS: Right Kidney:__9.1 x 4.7 x 5.1 cm Left Kidney:__9.0 x 4.7 x 4.6 cm FINDINGS: Right Kidney: 2 cm cyst lateral midpole region. No evidence of hydronephrosis. Left Kidney: No evidence of mass or hydronephrosis. Bladder: Frye catheter is present. Bladder decompressed. Other: None. CONCLUSION: Right renal cyst. No hydronephrosis. Electronically signed by: Buster Myers MD 09/26/2017 8:54 PM EDT
[2017-09-26] MEDS ORDERED: MIDODRINE 10 MG PO SCH (21:00)
--- NOTE | 2017-09-26 21:47 | ECG ---
Date Performed: 09/26/2017 Time Performed: 21:07:59 PTAGE: 86 years EKG: ELECTRONIC VENTRICULAR PACEMAKER ABNORMAL RHYTHM ECG Compared to prior electrocardiogram, D ual chamber pacemaker is now present. PREVIOUS TRACING : 07/09/2017 14.33 DOCTOR: Maximo Ray Interpretating Date/Time 09/26/2017 21:45:47
[2017-09-27 06:16] LABS: Baso % (Auto) 0.2 % (0.0-2.0); Eos # (Auto) 0.1 th/mm3 (0.0-0.4); Eos % (Auto) 0.6 % (0.0-4.0); Hematocrit 25.4 % (39.0-51.0); Hemoglobin 8.9 gm/dL (13.0-17.0); Lymph # (Auto) 0.6 th/mm3 (1.0-4.8); Lymph % (Auto) 5.6 % (9.0-44.0); Mean Corpuscular Hemoglobin 34.1 pg (27.0-34.0); Mean Corpuscular Volume 97.4 fL (80.0-100.0); Mean Platelet Volume 9.5 fL (7.0-11.0); Mono # (Auto) 0.7 th/mm3 (0.0-0.9); Mono % (Auto) 6.8 % (0.0-8.0); Neut # (Auto) 9.1 th/mm3 (1.8-7.7); Neut % (Auto) 86.8 % (16.0-70.0); Platelet Count 110 th/mm3 (150-450); Red Blood Count 2.61 mil/mm3 (4.50-5.90); Red Cell Distribution Width 20.8 % (11.6-17.2); White Blood Count 10.4 th/mm3 (4.0-11.0)
[2017-09-27 07:11] LABS: Calcium 8.1 mg/dL (8.5-10.1); Carbon Dioxide 32.2 meq/L (21.0-32.0); Potassium 3.7 meq/L (3.5-5.1)
[2017-09-27] MEDS: Finasteride 5 MG Tablet PO SCH (08:07)
[2017-09-27] MEDS ORDERED: LEVOTHYROXINE 25 MCG PO SCH (09:00)
[2017-09-27] MEDS ORDERED: DUTASTERIDE 0.5 MG PO SCH (09:00)
[2017-09-27] MEDS ORDERED: Furosemide 20 MG Tablet PO SCH (09:00)
--- NOTE | 2017-09-27 11:10 | P.HP ---
History of Present Illness Primary Care Physician: Lizzeth Khan MD Chief Complaint: Confusion, generalized weakness. History of Present Illness: Mr. Lewis is a pleasant 86 year old male with a history of SVT s/p ablation, pacemaker placement who was brought to the ED from his NURSING HOME due to confusion and generalized weakness. He did not drink much fluid for a day. He did not have any cough, fever, chills. However, he complained of abdominal discomfort and leg weakness. No dysuria, hematuria. No changes in bowel habits. Patient's son reports that patient had 2 units of blood transfusion within last week due to hgb 7.1. He also underwent EGD/Colonoscopy studies by outside GI and the plan was to do capsule endoscopy in the outpatient setting. His Hgb was apparently over 11 after transfusion. Hgb upon admission was 9.8 and today 8.9. At the time of this interview, patient is doing well. He is more alert, oriented x 3. Per son, his mentation is better. He is on room air. Inpatient Certification: I certify that the inpatient services were ordered in accordance with Medicare regulations governing the order. This includes certification that hospital inpatient services are reasonable and necessary and in the case of services not specified as inpatient-only under 42 CFR 419.22(n), that they are appropriately provided as inpatient services in accordance to with the 2-midnight benchmark under 43 CFR 412.3(e) Estimated Total Length of Stay (Days): 2 Plans for Post Hospital Care: SNF [facility] - History History Provided By: Family Member - Medical History Medical History: Medical History (Last Reviewed 09/26/17 @ 15:12 by Donald Leslie) GI bleed Pacemaker TIA (transient ischemic attack) - Tobacco History Second Hand Smoke Exposure: No Smoking Status: Never smoker - Alcohol History How Often Do You Have a Drink Containing Alcohol: Monthly or less - Substance Use History Substance History: No History of Abuse - Travel History Recent Travel in the [place] Within the Last 8 Weeks: No Recent Travel Out of the Country Within the Last 8 Weeks: No - Immunization History Tetanus Immunization: >5 Years Hx Influenza Vaccine This Season: Yes Medications and Allergies Active Medications: Active Medications Al Hydroxide/Mg Hydroxide (Milk Of Winsome Liq) 30 ml PO Q12H PRN PRN Reason: Mild Constipation Atorvastatin Calcium (Lipitor) 10 mg PO DAILY [facility] Last Admin: 09/27/17 08:07 Dose: 10 mg Bisacodyl (Dulcolax Supp) 10 mg RECTAL DAILY PRN PRN Reason: SEVERE CONSITIPATION Clopidogrel Bisulfate (Plavix) 75 mg PO DAILY [facility] Last Admin: 09/27/17 08:07 Dose: 75 mg Finasteride (Proscar) 5 mg PO DAILY [facility] Last Admin: 09/27/17 08:07 Dose: 5 mg Sodium Chloride (Ns Inj) 1,000 mls @ 100 mls/hr IV.CONT .Q10H [facility] Lactulose (Lactulose Liq) 30 ml PO DAILY PRN PRN Reason: SEVERE CONSITIPATION Levothyroxine Sodium (Synthroid) 25 mcg PO DAILY@0600 [facility] Last Admin: 09/27/17 07:20 Dose: Not Given Midodrine (Proamatine) 10 mg PO BID [facility] Last Admin: 09/27/17 08:07 Dose: 10 mg Sennosides (Senokot) 17.2 mg PO Q12H PRN PRN Reason: Moderate Constipation Sodium Chloride (Ns Flush) 2 ml IV.FLUSH PRN PRN PRN Reason: FLUSH AFTER USING IV ACCESS Temazepam (Restoril) 15 mg PO HS PRN PRN Reason: INSOMNIA Allergies Allergy/AdvReac Type Severity Reaction Status Date / Time adhesive AdvReac Rash Verified 09/26/17 14:42 Home Medications Medication Instructions Recorded Confirmed Type alprazolam 0.5 mg PO DAILY PRN 09/26/17 09/26/17 History atorvastatin 10 mg PO DAILY 09/26/17 09/26/17 History calcium carbonate [Calcium 500] 500 mg PO DAILY 09/26/17 09/26/17 History clopidogrel 75 mg PO DAILY 09/26/17 09/26/17 History dutasteride 0.5 mg PO DAILY 09/26/17 09/26/17 History ferrous sulfate [Feosol] 325 mg PO BID 09/26/17 09/26/17 History furosemide [Lasix] 20 mg PO DAILY 09/26/17 09/26/17 History imatinib 400 mg PO DAILY 09/26/17 09/26/17 History levothyroxine 25 mcg PO DAILY 09/26/17 09/26/17 History midodrine 10 mg PO BID 09/26/17 09/26/17 History ondansetron 8 mg PO TID PRN 09/26/17 09/26/17 History potassium chloride [Klor-Con 10] 10 meq PO DAILY 09/26/17 09/26/17 History white petrolatum-mineral oil 09/26/17 History [Retaine PM] Exam Vital signs: Vital Signs 09/26/17 14:26 09/26/17 14:34 09/26/17 15:03 Temperature 97.9 F 97.9 F Pulse Rate 75 74 Respiratory Rate 18 18 Blood Pressure 116/58 L 116/58 L Pulse Oximetry 99 99 98 09/26/17 15:30 09/26/17 16:34 09/26/17 18:00 Temperature Pulse Rate 70 71 69 Respiratory Rate 18 18 Blood Pressure 99/53 L 111/57 L Pulse Oximetry 99 98 09/26/17 19:00 09/26/17 20:00 09/26/17 21:12 Temperature Pulse Rate 73 88 94 H Respiratory Rate 16 20 Blood Pressure 115/85 110/53 L Pulse Oximetry 98 96 09/26/17 21:30 09/26/17 22:00 09/27/17 04:00 Temperature 99.2 F 98.7 F Pulse Rate 92 H 92 H 67 Respiratory Rate 18 18 18 Blood Pressure 85/48 L 85/48 L 101/53 L Pulse Oximetry 95 95 95 09/27/17 07:41 09/27/17 08:00 Temperature 97.9 F Pulse Rate 75 81 Respiratory Rate Blood Pressure 125/62 Pulse Oximetry 95 Intake & Output 09/26/17 09/27/17 09/27/17 18:59 06:59 18:59 Output Total 200 / 200 Balance -200 / -200 Weight 58.967 kg 60.1 kg Output: Urine 200 / 200 Narrative: GENERAL: This is a well-nourished, well-developed patient, in no apparent distress. Alert, oriented x 3. SKIN: No rashes, ecchymoses or lesions. Warm and dry. HEAD: Atraumatic. Normocephalic. No temporal or scalp tenderness. EYES: Pupils equal round and reactive. No injection or drainage. ENT: Nose without bleeding, purulent drainage or septal hematoma. Airway patent. NECK: Trachea midline. No lymphadenopathy. Supple, nontender, no meningeal signs. CARDIOVASCULAR: Regular rate and rhythm without murmurs, gallops, or rubs. No JVD. RESPIRATORY: Clear to auscultation. Breath sounds equal bilaterally. No wheezes , rales, or rhonchi. GASTROINTESTINAL: Abdomen soft, non-tender, nondistended. No guarding. MUSCULOSKELETAL: Extremities without clubbing, cyanosis. LE with trace edema. NEUROLOGICAL: Awake and alert. Cranial nerves II through XII intact. No focal neurological deficits. Normal speech. Results - Labs CBC & Chem 7: 09/27/17 05:25 09/27/17 05:25 Labs: Laboratory Results - last 24 hr 09/26/17 09/26/17 09/26/17 13:20 13:20 13:20 WBC 14.9 H RBC 2.95 L Hgb 9.8 L Hct 29.2 L MCV 98.7 MCH 33.1 MCHC 33.5 RDW 20.8 H Plt Count 178 MPV 9.7 Prelim Diff (Auto) Slide review pending Neut % (Auto) 90.4 H Lymph % (Auto) 2.0 L Howard % (Auto) 7.1 Eos % (Auto) 0.0 Baso % (Auto) 0.5 Neut # (Auto) 13.5 H Lymph # (Auto) 0.3 L Howard # (Auto) 1.1 H Eos # (Auto) 0.0 Baso # (Auto) 0.1 WBC Differential . Diff Scan Auto diff confirmed Differential Comment . Platelet Estimate Normal Platelet Morphology Normal Spherocytes 1+ H Ovalocytes 1+ H Sodium 138 Potassium 5.7 H Chloride 101 Carbon Dioxide 28.6 Anion Gap 8 BUN 27 H Creatinine 2.48 H Estimated GFR 25 L Random Glucose 103 Calcium 7.8 L Total Bilirubin 0.7 AST 140 H ALT 77 Alkaline Phosphatase 344 H Total Creatine Kinase 222 Troponin I 0.09 H B-Natriuretic Peptide 641 H Total Protein 5.2 L Albumin 2.2 L TSH 6.430 H Urine Color Urine Clarity Urine pH Ur Specific [place] Urine Protein Urine Glucose (UA) Urine Ketones Urine Occult Blood Urine Nitrate Urine Bilirubin Urine Urobilinogen Ur Leukocyte Esterase Urine RBC Urine WBC Amorphous Sediment Urine Bacteria Hyaline Casts Urine Mucus Micro UA Comment Urine Culture Comments 09/26/17 09/27/17 09/27/17 17:04 05:25 05:25 WBC 10.4 RBC 2.61 L Hgb 8.9 L Hct 25.4 L MCV 97.4 MCH 34.1 H MCHC 35.0 RDW 20.8 H Plt Count 110 L D MPV 9.5 Prelim Diff (Auto) Slide review pending Neut % (Auto) 86.8 H Lymph % (Auto) 5.6 L Howard % (Auto) 6.8 Eos % (Auto) 0.6 Baso % (Auto) 0.2 Neut # (Auto) 9.1 H Lymph # (Auto) 0.6 L Howard # (Auto) 0.7 Eos # (Auto) 0.1 Baso # (Auto) 0.0 WBC Differential . Diff Scan Auto diff confirmed Differential Comment . Platelet Estimate Platelet Morphology Spherocytes Ovalocytes Sodium 141 Potassium 3.7 D Chloride 101 Carbon Dioxide 32.2 H Anion Gap 8 BUN 30 H Creatinine 2.40 H Estimated GFR 26 L Random Glucose 85 Calcium 8.1 L Total Bilirubin AST ALT Alkaline Phosphatase Total Creatine Kinase Troponin I B-Natriuretic Peptide Total Protein Albumin TSH Urine Color [place] Urine Clarity Hazy H Urine pH 5.0 Ur Specific [place] 1.014 Urine Protein 30 H Urine Glucose (UA) Negative Urine Ketones Negative Urine Occult Blood Negative Urine Nitrate Negative Urine Bilirubin Negative Urine Urobilinogen 4 or greater Ur Leukocyte Esterase Negative Urine RBC 1 Urine WBC 4 Amorphous Sediment Rare H Urine Bacteria Rare H Hyaline Casts 30 Urine Mucus Few H Micro UA Comment Culture not ind Urine Culture Comments Culture not ind - Imaging Impressions Abdomen/Bladder Ultrasound 09/26/17 00:00 CONCLUSION: Right renal cyst. No hydronephrosis. Chest X-Ray 09/26/17 15:03 CONCLUSION: 1. There is some chronic interstitial changes bilaterally. 2. No new or acute pulmonary infiltrates. Head CT 09/26/17 15:03 CONCLUSION: No acute intracranial findings Caprini VTE Risk Assessment Caprini VTE Risk Assessment: No/Low Risk (score <= 1) Caprini Risk Assessment Model: Point Value = 1 Point Value = 2 Point Value = 3 Point Value = 5 Age 41-60 Minor surgery BMI > 25 kg/m2 Swollen legs Varicose veins or History of unexplained or recurrent spontaneous Oral contraceptives or hormone replacement Sepsis (< 1 month) Serious lung disease, including pneumonia (< 1 month) Abnormal pulmonary function Acute myocardial infarction Congestive heart failure (< 1 month) History of inflammatory bowel disease Medical patient at bed rest Age 61-74 Arthroscopic surgery Major open surgery (> 45 min) Laparoscopic surgery (> 45 min) Malignancy Confined to bed (> 72 hours) Immobilizing plaster cast Central venous access Age >= 75 History of VTE Family history of VTE Factor V Leiden Prothrombin [id number] Lupus anticoagulant Anticardiolipin antibodies Elevated serum homocysteine Heparin-induced thrombocytopenia Other congenital or acquired thrombophilia Stroke (< 1 month) Elective arthroplasty Hip, pelvis, or leg fracture Acute spinal cord injury (< 1 month) Prophylaxis Regimen: Total Risk Factor Score Risk Level Prophylaxis Regimen 0-1 Low Early ambulation 2 Moderate Order ONE of the following: *Sequential Compression Device (SCD) *Heparin 5000 units SQ BID 3-4 Higher Order ONE of the following medications: *Heparin 5000 units SQ TID *Enoxaparin/Lovenox 40 mg SQ daily (WT < 150 kg, CrCl > 30 mL/min) *Enoxaparin/Lovenox 30 mg SQ daily (WT < 150 kg, CrCl > 10-29 mL/min) *Enoxaparin/Lovenox 30 mg SQ BID (WT < 150 kg, CrCl > 30 mL/min) AND/OR *Sequential Compression Device (SCD) 5 or more Highest Order ONE of the following medications: *Heparin 5000 units SQ TID (Preferred with Epidurals) *Enoxaparin/Lovenox 40 mg SQ daily (WT < 150 kg, CrCl > 30 mL/min) *Enoxaparin/Lovenox 30 mg SQ daily (WT < 150 kg, CrCl > 10-29 mL/min) *Enoxaparin/Lovenox 30 mg SQ BID (WT < 150 kg, CrCl > 30 mL/min) AND *Sequential Compression Device (SCD) Assessment and Plan - Plan Mr. Lewis is a pleasant 86-year-old male with a history of SVT, pacemaker placement who was brought to the hospital from his [facility] due to confusion and generalized weakness. Workup so far negative including UTI and chest x-ray. His creatinine was elevated to 2.48. Baseline appears to be around 1.5. At the time of this interview, patient is alert oriented 3, NAD. On room air. Generalized weakness Confusion -Volume depletion due to poor oral intake is likely the reason for patient's weakness and confusion. -We will start patient on gentle hydration normal saline 100 cc/h. -Repeat CBC and BMP in the morning. Acute kidney injury Chronic kidney disease stage III -Baseline creatinine appears to be around 1.5. On admission patient's creatinine was 2.48. -We will continue IV hydration and check BMP in the morning. History of SVT Hyperlipidemia History of hypotension Hypothyroidism -We will continue patient's home medications Lipitor and Plavix. Continue levothyroxine as well. -Continue Midrin with caution as it may cause hypotension. BPH -continue finasteride 5 mg daily. Full code. SCDs. Discharge plan: If patient continues to do well, we will plan on discharging him back to his NURSING HOME over the weekend.
[2017-09-27] MEDS: Sod Chloride 0.9% Inj 1,000 ML IV.CONT SCH ×2 (13:15→21:28)
--- NOTE | 2017-09-27 15:07 | P.DCO ---
- Physical Therapy Order: Evaluate and treat, Improve ambulation, Strength and gait training - Home Health Nursing Order: Medical education, Signs/symptoms of disease process, Medication education-adverse effect, Nursing assessment with vital signs - Certification I have seen patient Edward Alas on 09/27/17. My clinical findings support the need for the requested home health care services because: Limited mobility due to disease progression, Deconditioned with increased weakness, High risk of falls, Infection with risk of complications I certify that my clinical findings support that this patient is homebound because: Impaired cognitive ability/safety, Unsteady gait/balance, Unsafe to leave home unassisted, Need for psychosocial assistance, Unable to use public transportation
[2017-09-28] MEDS: Sod Chloride 0.9% Inj 1,000 ML IV.CONT SCH ×2 (06:14→10:28)
[2017-09-28 07:53] LABS: Baso % (Auto) 0.2 % (0.0-2.0); Eos # (Auto) 0.1 th/mm3 (0.0-0.4); Eos % (Auto) 1.5 % (0.0-4.0); Hematocrit 28.8 % (39.0-51.0); Hemoglobin 9.8 gm/dL (13.0-17.0); Lymph # (Auto) 0.6 th/mm3 (1.0-4.8); Mean Corpuscular HGB Conc 34.1 % (32.0-36.0); Mean Corpuscular Hemoglobin 33.7 pg (27.0-34.0); Mean Corpuscular Volume 98.7 fL (80.0-100.0); Mean Platelet Volume 9.5 fL (7.0-11.0); Mono # (Auto) 0.5 th/mm3 (0.0-0.9); Mono % (Auto) 5.7 % (0.0-8.0); Neut # (Auto) 7.7 th/mm3 (1.8-7.7); Neut % (Auto) 85.6 % (16.0-70.0); Platelet Count 119 th/mm3 (150-450); Red Blood Count 2.92 mil/mm3 (4.50-5.90); Red Cell Distribution Width 21.2 % (11.6-17.2)
--- NOTE | 2017-09-28 07:55 | P.PN ---
Subjective Interval history: Follow-up for confusion, acute kidney injury. Patient is currently doing well. Denies any chest pain, shortness of breath, fever or chills. He is very coherent and pleasant. Physical Exam Vital signs: Vital Signs 09/27/17 08:00 09/27/17 09:00 09/27/17 10:00 Temperature 97.9 F Pulse Rate 82 84 70 Respiratory Rate Blood Pressure 125/62 Pulse Oximetry 95 09/27/17 11:00 09/27/17 11:48 09/27/17 12:00 Temperature 98 F Pulse Rate 77 77 68 Respiratory Rate 18 Blood Pressure 122/66 Pulse Oximetry 98 09/27/17 13:00 09/27/17 14:00 09/27/17 15:00 Temperature Pulse Rate 84 68 73 Respiratory Rate Blood Pressure Pulse Oximetry 09/27/17 16:00 09/27/17 17:00 09/27/17 18:00 Temperature 97.7 F Pulse Rate 86 76 80 Respiratory Rate 18 Blood Pressure 138/76 Pulse Oximetry 95 09/27/17 19:00 09/27/17 20:00 09/27/17 21:00 Temperature 98 F Pulse Rate 76 76 80 Respiratory Rate 18 Blood Pressure 135/74 Pulse Oximetry 95 09/27/17 22:00 09/27/17 23:00 09/28/17 00:00 Temperature 97.6 F Pulse Rate 74 80 80 Respiratory Rate 18 Blood Pressure 130/70 Pulse Oximetry 96 09/28/17 01:00 09/28/17 02:00 09/28/17 03:00 Temperature 98 F Pulse Rate 76 78 73 Respiratory Rate 18 Blood Pressure 127/72 Pulse Oximetry 96 09/28/17 04:00 09/28/17 05:00 09/28/17 06:00 Temperature Pulse Rate 73 75 74 Respiratory Rate Blood Pressure Pulse Oximetry Intake & Output 09/27/17 09/28/17 09/28/17 18:59 06:59 18:59 Intake Total 480 / 480 2049 Output Total 450 / 450 900 / 900 Balance 30 / 30 1150 / 1150 Weight 60.1 kg Intake: IV 1999 NS Inj 1,000 ML @ 100 mls/hr IV 1999 .CONT .Q10H [facility] Rx#:[id number] Oral 480 / 480 50 / 50 Output: Urine Amount (Catheter) 450 / 450 900 / 900 Indwelling Urethral Catheter 450 / 450 900 / 900 Other: Date of Last Bowel Movement 09/27/17 # Bowel Movements 1 0 Narrative: GENERAL: Alert, Oriented x 3. NAD. SKIN: Warm and dry. HEAD: Normocephalic. EYES: No scleral icterus. No injection or drainage. NECK: Supple, trachea midline. No JVD or lymphadenopathy. CARDIOVASCULAR: Regular rate and rhythm without murmurs, gallops, or rubs. RESPIRATORY: Breath sounds equal bilaterally. No accessory muscle use. GASTROINTESTINAL: Abdomen soft, non-tender, nondistended. MUSCULOSKELETAL: No cyanosis, or edema. BACK: Nontender without obvious deformity. No CVA tenderness. - Urinary Catheter Management Indwelling Urethral Catheter Cath placed during this visit: yes Reason for continuing: Acute urinary retention Insertion date: 09/26/17 Insertion time: 20:17 Results - Labs CBC & Chem 7: 09/28/17 06:50 09/28/17 06:50 Laboratory Results - last 24 hr 09/27/17 09/27/17 05:25 12:46 WBC Differential . Diff Scan Auto diff confirmed POC Glucose 117 H Assessment and Plan - Plan Mr. Lewis is a pleasant 86-year-old male with a history of SVT, pacemaker placement who was brought to the hospital from his [facility] due to confusion and generalized weakness. Workup so far negative including UTI and chest x-ray. His creatinine was elevated to 2.48. Baseline appears to be around 1.5. At the time of this interview, patient is alert oriented 3, NAD. On room air. Generalized weakness Confusion -Volume depletion due to poor oral intake is likely the reason for patient's weakness and confusion. -We will continue patient on gentle hydration normal saline 100 cc/h. -Repeat CBC. BMP shows improved creatinine, Hemoglobin stable at around 10. Acute kidney injury Chronic kidney disease stage III -Baseline creatinine appears to be around 1.5. On admission patient's creatinine was 2.48. -Creatinine improved from 2.48 ==> 1.79 today. History of SVT Hyperlipidemia History of hypotension Hypothyroidism -We will continue patient's home medications Lipitor and Plavix. Continue levothyroxine as well. -Continue Midodrin with caution as it may cause hypertension. BPH -continue finasteride 5 mg daily. Full code. SCDs. Discharge plan: Probable discharge later today to [facility].
[2017-09-28 08:17] LABS: Calcium 7.2 mg/dL (8.5-10.1); Carbon Dioxide 27.9 meq/L (21.0-32.0); Potassium 3.5 meq/L (3.5-5.1)
[2017-09-28 08:39] LABS: Total Protein 4.8 g/dL (6.4-8.2)
[2017-09-28] MEDS ORDERED: [UNRECOGNIZED DRUG - OTHER] PO SCH (09:00)
[2017-09-28] MEDS ORDERED: IMATINIB PO SCH (09:00)
[2017-09-28] MEDS: Finasteride 5 MG Tablet PO SCH (10:28)
== END 2017-09-28 16:25 ==
LOC: NEPC 14:19 → NEDA 19:41 → HCIS 21:24
PROVIDERS: ADMIT Hospitalist; ATTEND Hospitalist

== ENCOUNTER 2018-01-07 09:27 | Inpatient (IN) ==
[2018-01-07] MEDS ORDERED: Sod Chloride 0.9% Inj 1,000 ML IV.SIG ONE (09:46)
[2018-01-07 10:06] LABS: Baso % (Auto) 0.1 % (0.0-2.0); Eos % (Auto) 0.1 % (0.0-4.0); Hematocrit 25.8 % (39.0-51.0); Hemoglobin 8.7 gm/dL (13.0-17.0); Lymph # (Auto) 0.3 th/mm3 (1.0-4.8); Lymph % (Auto) 3.5 % (9.0-44.0); Mean Corpuscular HGB Conc 33.7 % (32.0-36.0); Mean Corpuscular Hemoglobin 36.9 pg (27.0-34.0); Mean Corpuscular Volume 109.3 fL (80.0-100.0); Mean Platelet Volume 8.9 fL (7.0-11.0); Mono # (Auto) 0.8 th/mm3 (0.0-0.9); Mono % (Auto) 8.9 % (0.0-8.0); Neut # (Auto) 8.2 th/mm3 (1.8-7.7); Neut % (Auto) 87.4 % (16.0-70.0); Platelet Count 156 th/mm3 (150-450); Red Blood Count 2.36 mil/mm3 (4.50-5.90); Red Cell Distribution Width 17.7 % (11.6-17.2); White Blood Count 9.4 th/mm3 (4.0-11.0)
--- NOTE | 2018-01-07 10:08 | XR ---
EXAM DATE: 01/07/2018 9:46 AM EDT AGE/SEX: 87 years / Male INDICATIONS: Shortness of breath. CLINICAL DATA: This is the patient's initial encounter. Patient reports that signs and symptoms have been present for 1 day and indicates a pain score of 0/10. MEDICAL/SURGICAL HISTORY: Transient ischemic attack. Pacemaker. COMPARISON: [facility], CHEST 1V SINGLE AP, 09/26/2017. . FINDINGS: Persistent diffuse interstitial prominence with mild left basilar airspace disease and volume loss wi th elevation of the left hemidiaphragm. Stable dual lead pacemaker. The cardiomediastinal contours ar e unremarkable. Osseous structures are intact. CONCLUSION: 1. Chronic senescent changes with stable left basilar atelectasis/scarring. Electronically signed by: Ketan Garcia MD 01/07/2018 10:07 AM EDT
--- NOTE | 2018-01-07 10:19 | ED ---
HPI General Chief Complaint: Altered Mental Status Stated Complaint: Abd pain/Altered Mental Time Seen by Provider: 01/07/18 09:38 Source: EMS Mode of arrival: EMS Limitations: altered mental status History of Present Illness HPI narrative: Patient is an 87-year-old male who presents to the emergency room from an assisted living facility for evaluation of altered mental status. As per EMS, patient's family members noted that patient has been confused. Reports that his confusion has progressed over the past 4-5 weeks and they were concerned and wanted him to be evaluated in the emergency room. Patient is alert only to person, patient's only complaint is that his whole stomach has been hurting him. Patient denies any headache or dizziness, denies any chest pain or shortness of breath. Patient denies any nausea, vomiting or constipation or diarrhea. Overall, patient is a poor historian. MD complaint: Reports altered mental status and confusion Onset (ago): week(s) (4-5 weeks) Timing confirmed by: family member Severity: moderate Consistency of symptoms: getting worse Associated symptoms: Reports other (abdominal pain) Related Data Home Medications Medication Instructions Recorded Confirmed alprazolam 0.5 mg PO DAILY PRN 09/26/17 01/07/18 calcium carbonate [Calcium 500] 500 mg PO DAILY 09/26/17 01/07/18 dutasteride 0.5 mg PO DAILY 09/26/17 01/07/18 ferrous sulfate [Feosol] 325 mg PO BID 09/26/17 01/07/18 furosemide [Lasix] 20 mg PO DAILY 09/26/17 01/07/18 imatinib 400 mg PO DAILY 09/26/17 01/07/18 levothyroxine 25 mcg PO DAILY 09/26/17 01/07/18 midodrine 10 mg PO BID 09/26/17 01/07/18 ondansetron 8 mg PO TID PRN 09/26/17 01/07/18 cyanocobalamin (vitamin B-12) 1,000 mcg IM QMONTH 01/07/18 01/07/18 erythromycin 0.5 inch OPHTHALMIC (EYE) QID 01/07/18 01/07/18 escitalopram oxalate 5 mg PO DAILY 01/07/18 01/07/18 megestrol 400 mg PO BID 01/07/18 01/07/18 mirtazapine 15 mg PO DAILY 01/07/18 01/07/18 pantoprazole 40 mg PO DAILY 01/07/18 01/07/18 trazodone 50 mg PO DAILY 01/07/18 01/07/18 Allergies Allergy/AdvReac Type Severity Reaction Status Date / Time adhesive AdvReac Rash Verified 01/07/18 09:46 Review of Systems ROS: all other systems reviewed are negative [facility] Medical History Medical History GI bleed (Acute) HTN (hypertension) (Acute) Pacemaker (Acute) Rotator cuff injury (Acute) Skin cancer (Acute) TIA (transient ischemic attack) (Acute) Social History Social History Substance History: No History of Abuse Second Hand Smoke Exposure: No Smoking Status: Never smoker How Often Do You Have a Drink Containing Alcohol: Never Recent Travel in [facility] within the Last 8 Weeks: No Recent Out of Country Travel within the Last 8 Weeks: No Immunization History Tetanus Immunization: Unsure Exam Narrative Exam Narrative: GENERAL: No acute distress, nontoxic SKIN: Focused skin assessment warm/dry, pale HEAD: Atraumatic. Normocephalic. EYES: Pupils equal and round. No scleral icterus. No injection or drainage. ENT: No nasal bleeding or discharge. Mucous membranes pink and moist. NECK: Trachea midline. No JVD. CARDIOVASCULAR: Tachycardic. No murmur appreciated. RESPIRATORY: No accessory muscle use. Clear to auscultation. Breath sounds equal bilaterally. GASTROINTESTINAL: Abdomen soft, non-tender, nondistended. Hepatic and splenic margins not palpable. MUSCULOSKELETAL: No obvious deformities. No clubbing. No cyanosis. No edema. NEUROLOGICAL: Awake and alert only to person.. No obvious cranial nerve deficits. Motor grossly within normal limits. Normal speech. PSYCHIATRIC: Flat mood and affect; insight and judgment normal. Course Initial Documented Vital Signs Pulse Rate 113 H 01/07/18 09:35 Respiratory Rate 24 01/07/18 09:35 Blood Pressure 113/61 01/07/18 09:35 Pulse Oximetry 100 01/07/18 09:35 Last Documented Vital Signs Temperature 97.7 F 01/07/18 09:42 Pulse Rate 102 H 01/07/18 13:13 Respiratory Rate 19 01/07/18 13:13 Blood Pressure 125/58 L 01/07/18 13:13 Pulse Oximetry 98 01/07/18 13:13 Medical Decision Making MDM Narrative Medical decision making narrative: CT of the head showsDuring the course of the patients emergency department visit, the patients history, examination, and differential diagnosis were reviewed with the patient. The patient was placed on a boom conveyor operator with oximetry and frequent blood pressure monitoring. The patient had an IV access obtained and blood work sent for analysis. The patient was initially provided IVF Patient is tachycardic with a heart rate in the 113s, I did start an altered mental status workup for patient and CT of the abdomen and pelvis was ordered as he is complaining of diffuse abdominal pain although his abdominal exam is benign. Plan to monitor patient on boom conveyor operator White blood cell count 9.4, hemoglobin 8.7, hematocrit 25.8, platelets 156, patient with 23% band neutrophils Sodium 139, chloride 105, potassium 4.0, bicarb 22.8, BUN 32, creatinine 1.59, troponin 0.05 xray of the chest with left basilar atelectasis versus scarring Ct of head shows stable atrophy,The right mastoid and middle ear opacification CT of abdomen and pelvis: body wall edema, no evidence of bowel obstruction or free fluid or free air Patient does have a bandemia, he has been pancultured, he was given a dose of zosyn as well as vanco for broad spectrum coverage case reviewed with Dr. Canales who accepts pt to service of Dr. Haley Medical Screen Exam Complete: Yes Emergency Medical Condition: Yes Differential Diagnosis Differential Diagnosis: Altered mental status could be from UTI, infection, intracranial hemorrhage, CVA, arrhythmia, electrolyte abnormality Medical Records Medical records reviewed: Yes I reviewed the patient's medical records. Lab Data Result diagrams: 01/07/18 09:52 01/07/18 09:52 Lab Results 01/07/18 01/07/18 01/07/18 Range/Units 09:52 09:52 09:52 WBC 9.4 (4.0-11.0) th/mm3 RBC 2.36 L (4.50-5.90) mil/mm3 Hgb 8.7 L (13.0-17.0) gm/dL Hct 25.8 L (39.0-51.0) % MCV 109.3 H (80.0-100.0) fL MCH 36.9 H (27.0-34.0) pg MCHC 33.7 (32.0-36.0) % RDW 17.7 H (11.6-17.2) % Plt Count 156 (150-450) th/mm3 MPV 8.9 (7.0-11.0) fL Prelim Diff (Auto) Slide review pending Neut % (Auto) 87.4 H (16.0-70.0) % Lymph % (Auto) 3.5 L (9.0-44.0) % [place] % (Auto) 8.9 H (0.0-8.0) % Eos % (Auto) 0.1 (0.0-4.0) % Baso % (Auto) 0.1 (0.0-2.0) % Neut # (Auto) 8.2 H (1.8-7.7) th/mm3 Lymph # (Auto) 0.3 L (1.0-4.8) th/mm3 [place] # (Auto) 0.8 (0.0-0.9) th/mm3 Eos # (Auto) 0.0 (0.0-0.4) th/mm3 Baso # (Auto) 0.0 (0.0-0.2) th/mm3 WBC Differential Manual diff final Seg Neuts % (Manual) 72 H (16-70) % Band Neuts % (Manual) 23 H (0-6) % Lymphocytes % (Manual) 3 L (9-44) % Monocytes % (Manual) 1 (0-8) % Metamyelocytes % (Man) 1 (0-1) % Abs Neuts (Manual) 9.0 H (1.8-7.7) th/mm3 Differential Comment . Platelet Estimate Normal (Normal) Platelet Morphology Normal (Normal) PT 12.5 H (9.8-11.6) sec INR 1.2 Ratio APTT 26.1 (24.3-30.1) sec Sodium 139 (136-145) meq/L Potassium 4.0 (3.5-5.1) meq/L Chloride 105 (98-107) meq/L Carbon Dioxide 22.8 (21.0-32.0) meq/L Anion Gap 11 (5-15) meq/L BUN 32 H (7-18) mg/dL Creatinine 1.59 H (0.60-1.30) mg/dL Estimated GFR 41 L (>89) mL/min Random Glucose 126 H (74-106) mg/dL Calcium 8.5 (8.5-10.1) mg/dL Total Bilirubin 0.7 (0.2-1.0) mg/dL AST 20 (15-37) U/L ALT 21 (12-78) U/L Alkaline Phosphatase 78 (45-117) U/L Total Creatine Kinase (39-308) U/L Troponin I 0.05 (0.02-0.05) ng/mL B-Natriuretic Peptide (0-100) pg/mL Total Protein 6.0 L (6.4-8.2) g/dL Albumin 2.5 L (3.4-5.0) g/dL Urine Color (Yellw/Straw) Urine Clarity (Clear) Urine pH (5.0-8.5) Ur Specific Thermal (1.002-1.035) Urine Protein (Neg-Trace) mg/dL Urine Glucose (UA) (Negative) mg/dL Urine Ketones (Negative) mg/dL Urine Occult Blood (Negative) Urine Nitrate (Negative) Urine Bilirubin (Negative) Urine Urobilinogen (Less than 2) mg/dL Ur Leukocyte Esterase (Negative) Urine RBC (0-3) /hpf Urine WBC (0-5) /hpf Amorphous Sediment (None) /hpf Urine Bacteria (None) /hpf Hyaline Casts (0-3) /lpf Granular Casts (None) /lpf Urine Mucus (Occasional) /lpf Micro UA Comment Ur Microscopic Review Urine Culture Comments 01/07/18 01/07/18 01/07/18 Range/Units 09:52 09:52 11:28 WBC (4.0-11.0) th/mm3 RBC (4.50-5.90) mil/mm3 Hgb (13.0-17.0) gm/dL Hct (39.0-51.0) % MCV (80.0-100.0) fL MCH (27.0-34.0) pg MCHC (32.0-36.0) % RDW (11.6-17.2) % Plt Count (150-450) th/mm3 MPV (7.0-11.0) fL Prelim Diff (Auto) Neut % (Auto) (16.0-70.0) % Lymph % (Auto) (9.0-44.0) % [place] % (Auto) (0.0-8.0) % Eos % (Auto) (0.0-4.0) % Baso % (Auto) (0.0-2.0) % Neut # (Auto) (1.8-7.7) th/mm3 Lymph # (Auto) (1.0-4.8) th/mm3 [place] # (Auto) (0.0-0.9) th/mm3 Eos # (Auto) (0.0-0.4) th/mm3 Baso # (Auto) (0.0-0.2) th/mm3 WBC Differential Seg Neuts % (Manual) (16-70) % Band Neuts % (Manual) (0-6) % Lymphocytes % (Manual) (9-44) % Monocytes % (Manual) (0-8) % Metamyelocytes % (Man) (0-1) % Abs Neuts (Manual) (1.8-7.7) th/mm3 Differential Comment Platelet Estimate (Normal) Platelet Morphology (Normal) PT (9.8-11.6) sec INR Ratio APTT (24.3-30.1) sec Sodium (136-145) meq/L Potassium (3.5-5.1) meq/L Chloride (98-107) meq/L Carbon Dioxide (21.0-32.0) meq/L Anion Gap (5-15) meq/L BUN (7-18) mg/dL Creatinine (0.60-1.30) mg/dL Estimated GFR (>89) mL/min Random Glucose (74-106) mg/dL Calcium (8.5-10.1) mg/dL Total Bilirubin (0.2-1.0) mg/dL AST (15-37) U/L ALT (12-78) U/L Alkaline Phosphatase (45-117) U/L Total Creatine Kinase 67 (39-308) U/L Troponin I (0.02-0.05) ng/mL B-Natriuretic Peptide 308 H (0-100) pg/mL Total Protein (6.4-8.2) g/dL Albumin (3.4-5.0) g/dL Urine Color Yellow (Yellw/Straw) Urine Clarity Hazy H (Clear) Urine pH 5.0 (5.0-8.5) Ur Specific Thermal 1.013 (1.002-1.035) Urine Protein Negative (Neg-Trace) mg/dL Urine Glucose (UA) Negative (Negative) mg/dL Urine Ketones Negative (Negative) mg/dL Urine Occult Blood Negative (Negative) Urine Nitrate Negative (Negative) Urine Bilirubin Negative (Negative) Urine Urobilinogen Less than 2 (Less than 2) mg/dL Ur Leukocyte Esterase Negative (Negative) Urine RBC Less than 1 (0-3) /hpf Urine WBC Less than 1 (0-5) /hpf Amorphous Sediment Occasional H (None) /hpf Urine Bacteria Rare H (None) /hpf Hyaline Casts 8 (0-3) /lpf Granular Casts 1 (None) /lpf Urine Mucus Few H (Occasional) /lpf Micro UA Comment Culture not ind Ur Microscopic Review Not Reportable Urine Culture Comments Culture not ind Imaging Data Radiologist's impression: Abdomen/Pelvis CT 01/07/18 09:46 CONCLUSION: 1. Atherosclerosis. 2. Body wall edema. 3. No evidence for bowel obstruction, free fluid or free air. Chest X-Ray 01/07/18 09:46 CONCLUSION: 1. Chronic senescent changes with stable left basilar atelectasis/scarring. Head CT 01/07/18 09:46 CONCLUSION: 1. Stable atrophy. 2. Right mastoid and middle ear opacification. . ECG Data EKG Prior to Arrival: No Attestation: I personally reviewed and interpreted this ECG as follows: Interpretation: EKG at 0939: Paced at 111bpm Discharge Plan Discharge Disposition Patient Disposition: 30 Still Patient Discharge Condition Condition: Fair Discharge Details Diagnosis: Bandemia, Altered mental status Physicians Team ED Provider: Brianna Madrid Primary Care Provider: Bebo Chahal Rxs /Orders / Referrals /Forms Prescriptions: No Action ondansetron 8 mg Tablet,Disintegrating 8 mg PO TID PRN (Reason: Nausea) RF: 0 ferrous sulfate [Feosol] 325 mg (65 mg iron) Tablet 325 mg PO BID RF: 0 midodrine 10 mg Tablet 10 mg PO BID RF: 0 dutasteride 0.5 mg Capsule 0.5 mg PO DAILY RF: 0 imatinib 400 mg Tablet 400 mg PO DAILY RF: 0 levothyroxine 25 mcg Capsule 25 mcg PO DAILY RF: 0 alprazolam 0.5 mg Tablet 0.5 mg PO DAILY PRN (Reason: Anxiety) RF: 0 calcium carbonate [Calcium 500] 500 mg calcium (1,250 mg) Tablet 500 mg PO DAILY RF: 0 furosemide [Lasix] 20 mg Tablet 20 mg PO DAILY RF: 0 trazodone 50 mg Tablet 50 mg PO DAILY RF: 0 pantoprazole 40 mg Tablet,Delayed Release (Dr/Ec) 40 mg PO DAILY RF: 0 erythromycin 5 mg/gram (0.5 %) Ointment 0.5 inch OPHTHALMIC (EYE) QID RF: 0 cyanocobalamin (vitamin B-12) 1,000 mcg/mL Solution 1,000 mcg IM QMONTH RF: 0 mirtazapine 15 mg Tablet 15 mg PO DAILY RF: 0 escitalopram oxalate 5 mg Tablet 5 mg PO DAILY RF: 0 megestrol 400 mg/10 mL (10 mL) Suspension 400 mg PO BID RF: 0 Status ED Status: With Doctor
[2018-01-07 10:21] LABS: Activated Partial Thrombo Time 26.1 sec (24.3-30.1); INR 1.2 Ratio; Prothrombin Time 12.5 sec (9.8-11.6)
[2018-01-07 10:26] LABS: Albumin 2.5 g/dL (3.4-5.0); Anion Gap 11 meq/L (5-15); Aspartate Aminotransferase 20 U/L (15-37); Blood Urea Nitrogen 32 mg/dL (7-18); Calcium 8.5 mg/dL (8.5-10.1); Carbon Dioxide 22.8 meq/L (21.0-32.0); Chloride 105 meq/L (98-107); Glomerular Filtration Rate 41 mL/min (>89); Glucose,Random 126 mg/dL (74-106); Sodium 139 meq/L (136-145)
--- NOTE | 2018-01-07 10:30 | CT ---
EXAM DATE: 01/07/2018 9:58 AM EDT AGE/SEX: 87 years / Male INDICATIONS: Altered mental status CLINICAL DATA: This is the patient's initial encounter. Patient reports that signs and symptoms have been present for 1 day and indicates a pain score of 5/10. MEDICAL/SURGICAL HISTORY: Hypertension. Carcinoma, skin cancer. GI bleed Pacemaker. RADIATION DOSE: 47.71 CTDI (mGy) COMPARISON: [facility] [place], CT HEAD W/O CONTRAST, 09/26/2017. . TECHNIQUE: CT of the head without contrast. Using automated exposure control and adjustment of the mA and/or kV according to patient size, radiation dose was kept as low as reasonably achievable to ob tain optimal diagnostic quality images. DICOM format image data is available electronically for revi ew and comparison. FINDINGS: There is diffuse volume loss greatest in the frontal regions. No signs of intracranial hemorrhage, ma ss or infarction. Atherosclerotic calcifications of the vertebral arteries and carotid arteries are n oted. There is opacification of the right middle ear, mastoid air cells and probable cerumen in the r ight external auditory canal. CONCLUSION: 1. Stable atrophy. 2. Right mastoid and middle ear opacification. . Electronically signed by: Enoch Barraza MD 01/07/2018 10:29 AM EDT
[2018-01-07 10:33] LABS: Alanine Aminotransferase 21 U/L (12-78); Alkaline Phosphatase 78 U/L (45-117); Troponin I 0.05 ng/mL (0.02-0.05)
--- NOTE | 2018-01-07 10:37 | CT ---
EXAM DATE: 01/07/2018 9:58 AM EDT AGE/SEX: 87 years / Male INDICATIONS: Mid-abdominal pain with a cough CLINICAL DATA: This is the patient's initial encounter. Patient reports that signs and symptoms have been present for 1 day and indicates a pain score of 5/10. MEDICAL/SURGICAL HISTORY: Hypertension. Carcinoma, skin cancer. Pacemaker. RADIATION DOSE: 8.83 CTDI (mGy) COMPARISON: No prior exams available for comparison. TECHNIQUE: Multiple contiguous axial images were obtained through the abdomen. Images were obtained using multiple row detector helical technique. Using automated exposure control and adjustment of the mA and/or kV according to patient size, radiation dose was kept as low as reasonably achievable to o btain optimal diagnostic quality images. DICOM format image data is available electronically for rev iew and comparison. FINDINGS: Atherosclerotic calcification of the aorta and iliac vessels, femoral artery is noted. There is diffu se body wall edema. The bladder is unremarkable. Kidneys, spleen, pancreas, right adrenal gland unrem arkable. Findings suggest enlargement of the left adrenal gland up to 2.8 cm. A left adrenal nodule i s difficult to exclude. There are no signs of bowel obstruction. The gallbladder is unremarkable. The re is no evidence of hernia. There are degenerative changes of the spine and a prominent Schmorl node at the superior endplate of L4. CONCLUSION: 1. Atherosclerosis. 2. Body wall edema. 3. No evidence for bowel obstruction, free fluid or free air. Electronically signed by: Enoch Barraza MD 01/07/2018 10:35 AM EDT
[2018-01-07 10:38] LABS: Lymphocytes 3 % (9-44); Metamyelocytes 1 % (0-1); Monocytes 1 % (0-8); Platelet Estimate Normal (Normal); Platelet Morphology Normal (Normal)
[2018-01-07 12:20] LABS: Amorphous Sediment,Urine Occasional /hpf; Bacteria,Urine Rare /hpf; Bilirubin,Urine Negative (Negative); Clarity,Urine Hazy (Clear); Color,Urine Yellow (Yellw/Straw); Glucose,Urine (UA) Negative (Negative); Hyaline Casts,Urine 8 /lpf (0-3); Leukocyte Esterase,Urine Negative (Negative); Mucus,Urine Few /lpf (Occasional); Nitrite,Urine Negative (Negative); Specific Gravity,Urine 1.013 (1.002-1.035)
[2018-01-07] MEDS ORDERED: Vancomycin Inj 1 GM/200 ML PIGGYBACK IV.SIG ONE (12:49)
[2018-01-07] MEDS ORDERED: Piperacil/Tazo 3.375 GM Premix 50 ML IV.SIG ONE (12:49)
[2018-01-07] MEDS ORDERED: Vancomycin Inj 1,000 MG in Sodium Chlor 0.9% Inj 250 ML IV.SIG ONE (13:00)
--- NOTE | 2018-01-07 13:33 | P.HPFP ---
History of Present Illness Primary Care Physician: eBbo Chahal MD <Arturo Haley - 01/08/18 06:54> Bebo Chahal MD <Shiloh Hein - 01/07/18 13:33> Chief Complaint: AMS, bandemia <Shiloh Hein - 01/07/18 13:33> History of Present Illness: 79-year-old male with history of leukemia, now in remission, SVT, pacemaker placement, hypothyroidism, and numerous hospitalizations in the past year, presents with altered mental status from a [facility] facility. Patient is unable to provide history at this point in time, as he is confused and unable to answer questions appropriately. However, patient's 2 sons are at bedside who are able to provide a detailed history. Per sons, the patient has had 2-3 weeks of progressive confusion. They state that he is oriented to self and is able to recognize family members, but is no longer to hold conversations and tends to be disoriented to time and place. They state that about a month ago he was able to have lengthy conversations and described him as "lucid and coherent". In the last couple of weeks he is also been experiencing hallucinations stating that "people are picking him up and taking him somewhere else during the night" and has been suspicious of staff at the SNF. They note that they have seen a significant decline in the last couple of days, stating that he has been very weak and fatigued. He is normally able to ambulate with the assistance of a walker and complete his ADLs with assistance, however he has been bedbound for the past couple of days. For the last couple of days he is also been experiencing sick difficult nausea. He has only vomited once Saturday evening and has had multiple episodes of watery diarrhea, without blood for the past 24 hours. Additionally patient has had unintentional weight loss, about 15-20 pounds in the last 3 months. He is now the latest he is ever weighed at about 115 pounds. They state his appetite has decreased, eating about 2 small meals a day with a supplemental shake. He is able to tolerate fluids. Patient's sons also states that the patient has been hospitalized about 14 times in the last year. He was diagnosed with possible TIA in April of this year. Earlier this year, he had about 4 hospitalizations due to falls related to syncopal episodes. They later found out that this was likely due to SVT and a pacemaker was placed. In the last couple of months he has had multiple hospitalizations for dehydration and anemia with blood transfusion x2. 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 Oncologist last seen 2 months ago. SVT Status post pacemaker placement this year Hypertension, well-controlled Possible TIA hypothyroidism, well controlled on levothyroxine macular degeneration Chronic dry eye Family history: 2 siblings: brother at 73 from leukemia, brother at 73 from colon cancer 2 sons: One with history of [place], otherwise healthy Social: Never smoker Rarely drinks EOTH No drug use PCP: Dr. Chahal Junior Accounting Clerk: Dr. 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 Moreau, placed pacemaker in July 2017 GI: Dr. Levin, last performed EGD showed possible gastritis Oncologist: Dr. Izquierdo, last seen 2 months ago, <Shiloh Hein B - 01/07/18 23:39> 87-year-old male living in a [facility] facility brought to the emergency department with altered mental status. He is in the emergency department with 2 of his sons who describe a progressive decline in his mental status over the last 3-4 days. Per his sons, this morning he was very difficult to arouse, very somnolent, and extremely confused so he was brought to the emergency department for further evaluation. He has been somewhat altered over the last 2 -3 weeks with nighttime hallucinations and intermittent confusion associated with decreased appetite. Per the sons, he was relatively well over the weekend prior to the last 2-3 days when he became progressively confused and had worsening hallucinations. He has not eaten very well over the last 3-4 days, only eating small portions of small meals once or twice a day and supplementing with chocolate boost. His sons do endorse decreased appetite with weight loss over the last several months. There is no record of any fevers, he has not complained of chest pain or shortness of breath, there is no record of lower extremity edema or cough/sputum production. Per the son's, over the last year or so he has had multiple hospitalizations with progressive decline in his function as well as worsening mental status. He has had intermittent periods of being lucid and "with it" associated with time of confusion, agitation, and hallucinations with frequent hospitalizations for altered mental status, dehydration, and deconditioning. He recently has seen a new doctor who has been decreasing his medications, medical management. Simplifying his <Arturo Haley 01/07/18 21:48> - Diagnosis (1) Altered mental status (2) Dehydration (3) Acute on chronic renal insufficiency (4) Bandemia (5) Diffuse abdominal pain (6) Elevated brain natriuretic peptide (BNP) level (7) Hypothyroid (8) History of depression (9) Nutrition, metabolism, and development symptoms (10) DVT prophylaxis <Angel LuisShiloh Ami 01/07/18 23:56> (1) Dehydration (2) Chronic kidney disease (3) Hypothyroid (4) Acute on chronic renal insufficiency (5) Bandemia (6) Altered mental status <Arturo Haley 01/08/18 06:54> Inpatient Certification: I certify that the inpatient services were ordered in accordance with Medicare regulations governing the order. This includes certification that hospital inpatient services are reasonable and necessary and in the case of services not specified as inpatient-only under 42 CFR 419.22(n), that they are appropriately provided as inpatient services in accordance to with the 2-midnight benchmark under 43 CFR 412.3(e) <Arturo Haley 01/07/18 21:48> Review of Systems Constitutional: Reports weight loss (15-20 lbs in the last couple of months), Denies chills, Denies fever(s) <Shiloh Hein 01/07/18 16:48> Eyes: Reports dry eyes (chronic), Reports loss of vision (chronic, hx of macular degeneration) <Shiloh Hein 01/07/18 16:48> Ears, Nose, Mouth, and Throat: Reports dry mouth, Reports mouth pain, Denies dental pain, Denies difficulty swallowing <Shiloh Hein 01/07/18 16:48> Cardiovascular: Denies chest pain, Denies leg swelling, Denies shortness of breath <Shiloh Hein 01/07/18 16:48> Respiratory: Denies cough, Denies wheezing <Shiloh Hein 01/07/18 16:48> Gastrointestinal: Reports abdominal pain (diffuse), Reports loose stools ( multiple episodes of diarrhea yesterday, loose stool this AM, nonbloody), Reports nausea, Reports vomiting (single episode last night), Denies coffee ground vomit <Shiloh Hein 01/07/18 16:48> Genitourinary: Denies blood in urine, Denies urinary frequency, Denies urinary incontinence <Shiloh Hein 01/07/18 16:48> Musculoskeletal: Reports decreased muscle mass <Shiloh Hein 01/07/18 16: 48> Neurologic: Reports abnormal speech (slurred), Reports confusion, Denies fainting <Shiloh Hein 01/07/18 16:48> PMFSH - History History Provided By: Family Member (2 sons) <Shiloh Hein 01/07/18 16:48> - Medical History Medical History: Medical History (Last Reviewed 01/07/18 @ 16:34 by Shiloh Hein DO, R1) CML (chronic myeloid leukemia) HTN (hypertension) Rotator cuff injury SVT (supraventricular tachycardia) Skin cancer GI bleed Pacemaker TIA (transient ischemic attack) <Arturo Haley 01/07/18 21:48> Medical History (Last Reviewed 01/07/18 @ 16:34 by Shiloh Hein DO, R1) CML (chronic myeloid leukemia) HTN (hypertension) Rotator cuff injury SVT (supraventricular tachycardia) Skin cancer GI bleed Pacemaker TIA (transient ischemic attack) <Shiloh Hein 01/07/18 16:48> - Surgical History Surgical History: Surgical History (Last Reviewed 01/07/18 @ 16:34 by Shiloh Hein DO, R1) History of bone marrow biopsy History of esophagogastroduodenoscopy (EGD) S/P skin biopsy <Arturo Haley 01/07/18 21:48> Surgical History (Last Reviewed 01/07/18 @ 16:34 by Shiloh Hein DO, R1) History of bone marrow biopsy History of esophagogastroduodenoscopy (EGD) S/P skin biopsy <Shiloh Hein 01/07/18 16:48> - Family History Family History: Family History (Last Updated 01/07/18 @ 16:32 by KERRIE Montiel) Brother CML (chronic myelocytic leukemia) Brother Colon cancer Son Heart attack <Arturo Haley/16/18 21:48> Family History (Last Updated 01/07/18 @ 16:32 by KERRIE Montiel) Brother CML (chronic myelocytic leukemia) Brother Colon cancer Son Heart attack <Angel LuisShiloh B - 01/07/18 18:09> - Social History I have reviewed the patient's Social History: Yes <Shiloh Hein 01/07/18 16:48> - Tobacco History Second Hand Smoke Exposure: No <Shiloh Hein 01/07/18 13:33> Smoking Status: Never smoker <Shiloh Hein 01/07/18 13:33> - Alcohol History How Often Do You Have a Drink Containing Alcohol: Never <Shiloh Hein 13:33> - Substance Use History Substance History: No History of Abuse <Shiloh Hein 01/07/18 13:33> - Travel History Recent Travel in the [facility] Within the Last 8 Weeks: No <Shiloh Hein 13:33> Recent Travel Out of the Country Within the Last 8 Weeks: No <Shiloh Hein 01/07/18 13:33> - Immunization History Tetanus Immunization: Unsure <Shiloh Hein 01/07/18 13:33> Medications and Allergies Allergies Allergy/AdvReac Type Severity Reaction Status Date / Time adhesive AdvReac Rash Verified 01/07/18 09:46 <Tera,Arturo - 01/08/18 06:54> Home Medications Medication Instructions Recorded Confirmed Type alprazolam 0.5 mg PO DAILY PRN 09/26/17 01/07/18 History calcium carbonate [Calcium 500] 500 mg PO DAILY 09/26/17 01/07/18 History dutasteride 0.5 mg PO DAILY 09/26/17 01/07/18 History ferrous sulfate [Feosol] 325 mg PO BID 09/26/17 01/07/18 History furosemide [Lasix] 20 mg PO DAILY 09/26/17 01/07/18 History imatinib 400 mg PO DAILY 09/26/17 01/07/18 History levothyroxine 25 mcg PO DAILY 09/26/17 01/07/18 History midodrine 10 mg PO BID 09/26/17 01/07/18 History ondansetron 8 mg PO TID PRN 09/26/17 01/07/18 History cyanocobalamin (vitamin B-12) 1,000 mcg IM QMONTH 01/07/18 01/07/18 History erythromycin 0.5 inch OPHTHALMIC (EYE) QID 01/07/18 01/07/18 History escitalopram oxalate 5 mg PO DAILY 01/07/18 01/07/18 History megestrol 400 mg PO BID 01/07/18 01/07/18 History mirtazapine 15 mg PO DAILY 01/07/18 01/07/18 History pantoprazole 40 mg PO DAILY 01/07/18 01/07/18 History trazodone 50 mg PO DAILY 01/07/18 01/07/18 History <Arturo Haley - 01/08/18 06:54> Active Medications: Active Medications Acetaminophen (Tylenol) 650 mg PO Q4H PRN PRN Reason: Temp > 100.4 Al Hydroxide/Mg Hydroxide (Milk Of Magnesia Liq) 30 ml PO Q12H PRN PRN Reason: Mild Constipation Bisacodyl (Dulcolax Supp) 10 mg RECTAL DAILY PRN PRN Reason: SEVERE CONSITIPATION Erythromycin (Ilotycin 0.5% Opth Oint) 0.5 applicatio EACH EYE QID [facility] Last Admin: 01/07/18 20:32 Dose: Not Given Sodium Chloride (Ns Inj) 500 mls @ 0 mls/hr IV.SIG BOLUS RACHELL Piperacillin/Tazobactam/Dextrose (Zosyn 3.375 Gm Premix) 50 mls @ 100 mls/hr IV.SIG Q6H RACHELL Last Admin: 01/07/18 21:16 Dose: 100 mls/hr Vancomycin HCl 1,000 mg/ (Sodium Chloride) 250 mls @ 250 mls/hr IV.SIG Q12H RACHELL Lactulose (Lactulose Liq) 30 ml PO DAILY PRN PRN Reason: SEVERE CONSITIPATION Levothyroxine Sodium (Synthroid) 25 mcg PO DAILY@0600 RACHELL Metoclopramide HCl (Reglan Inj) 5 mg IV.PUSH Q6HR PRN; Protocol PRN Reason: NAUSEA OR VOMITING Midodrine (Proamatine) 10 mg PO BID [facility] Last Admin: 01/07/18 20:32 Dose: Not Given Pt:Imatinib 400 Mg 0 each PO DAILY RACHELL Last Admin: 01/07/18 20:32 Dose: Not Given Pharmacy Profile Note (Vancomycin Consult Pharmacy) 1 each OTHER UNSCH PRN PRN Reason: PHARMACY TO DOSE Sennosides (Senokot) 17.2 mg PO Q12H PRN PRN Reason: Moderate Constipation Sodium Chloride (Ns Flush) 2 ml IV.FLUSH PRN PRN PRN Reason: FLUSH AFTER USING IV ACCESS Last Admin: 01/07/18 21:14 Dose: 2 ml <Arturo Haley - 01/08/18 06:54> Active Medications Vancomycin HCl 1,000 mg/ (Sodium Chloride) 250 mls @ 200 mls/hr IV.SIG ONCE ONE Stop: 01/07/18 14:14 Last Admin: 01/07/18 13:22 Dose: 200 mls/hr Sodium Chloride (Ns Flush) 2 ml IV.FLUSH PRN PRN PRN Reason: FLUSH AFTER USING IV ACCESS <Shiloh Hein - 01/07/18 13:56> Exam Vital signs: Vital Signs 01/07/18 09:35 01/07/18 09:42 01/07/18 13:13 Temperature 97.7 F Pulse Rate 113 H 102 H Respiratory Rate 24 19 Blood Pressure 113/61 125/58 L Pulse Oximetry 100 98 01/07/18 15:25 01/07/18 16:00 01/07/18 20:00 Temperature 97.1 F L 97.6 F Pulse Rate 97 H 100 H 99 H Respiratory Rate 18 14 16 Blood Pressure 113/56 L 104/57 L 95/55 L Pulse Oximetry 98 96 Intake & Output 01/07/18 01/07/18 01/08/18 06:59 18:59 06:59 Intake Total 1300 / 1300 Balance 1300 / 1300 Weight 65.771 kg Intake: IV 1300 / 1300 Zosyn 3.375 GM Premix 50 ML @ 50 / 50 100 mls/hr IV.SIG ONCE ONE Rx#: [id number] NS Inj 1,000 ML @ Wide Open IV. 1000 / 1000 SIG BOLUS ONE Rx#:[id number] Vancomycin Inj 1,000 MG In NS 250 / 250 Inj 250 ML @ 200 mls/hr IV.SIG ONCE ONE Rx#:[id number] <Arturo Haley - 01/08/18 06:54> Vital Signs 01/07/18 09:35 01/07/18 09:42 01/07/18 13:13 Temperature 97.7 F Pulse Rate 113 H 102 H Respiratory Rate 24 19 Blood Pressure 113/61 125/58 L Pulse Oximetry 100 98 Intake & Output 01/06/18 01/07/18 01/07/18 18:59 06:59 18:59 Intake Total 1000 / 1000 Balance 1000 / 1000 Weight 65.771 kg Intake: IV 1000 / 1000 NS Inj 1,000 ML @ Wide Open IV. 1000 / 1000 SIG BOLUS ONE Rx#:[id number] <Shiloh Hein - 01/07/18 13:33> Narrative: GENERAL: 87 year old elderly, frail, malnourished male asleep in bed. SKIN: Warm and dry. Single stage 1 2x2cm sacral pressure ulcer, no notable skin breakdown, non tender. Significant, diffuse superficial bruising of chest wall and upper extremities, chronic per family. 5x6cm superficial skin tear on anterior of upper right extremity, no active bleeding. Multiple small, well- healing superficial skin lesions on bilateral lower extremities. HEAD: Normocephalic. Multiple ulcerated, raised, crusted, dry 2-3 cm skin lesions over temples and periphery of face (dx'd as squmaous cell carcinoma months ago). Unable to open eyes completely. Periorbital area covered in ointment, with some matting of eye lashes. PERRLA. EMOI. Breathing through mouth. Dry mucous membranes. No erythema, swelling or drainage of oropharynx. NECK: Supple, trachea midline. No JVD or lymphadenopathy. CARDIOVASCULAR: Regular rate and rhythm without murmurs. RESPIRATORY: Breath sounds equal bilaterally, though decreased lung volume. No accessory muscle use. GASTROINTESTINAL: Bowel sounds in all 4 quadrants. Abdomen soft and nondistended. Diffuse abdominal tenderness on palpation. MUSCULOSKELETAL: No cyanosis, or edema. PT and DP pulses intact bilaterally. BACK: Nontender without obvious deformity. NEURO: Arousable and oriented to self. Disoriented to time and place. Confused, slurred speech. Unable to follow most commands. Moving all extremities spontaneously. <Shiloh Hein - 01/07/18 23:39> General: Elderly and frail appearing male lying in bed HEENT: Mucous membranes very dry. Multiple hypertrophic, plaque-like lesions 2- 3 cm over the temples, scalp, and side of his face. Is unable to open eyes completely or follow commands. Skin: 2 x 2 centimeter sacral pressure ulcer with erythema, no obvious broken down skin. Multiple areas of ecchymosis on the arms and upper extremities. CV: Regular rate and rhythm without murmur Respiratory: Breath sounds distant anteriorly, no obvious crackles or rhonchi GI: Diffusely tender without rigidity, significant rebound or guarding MSK: No obvious cyanosis or edema Neuro: Somnolent but arousable, normally oriented to self. Very confused with slurred speech and unable to follow commands. <Arturo Haley - 01/07/18 21:48> Results - Labs Result diagrams: 01/07/18 09:52 01/07/18 09:52 <Arturo Haley - 01/08/18 06:54> Abnormal lab results 01/07/18 01/07/18 01/07/18 Range/Units 09:52 09:52 09:52 RBC 2.36 L (4.50-5.90) mil/mm3 Hgb 8.7 L (13.0-17.0) gm/dL Hct 25.8 L (39.0-51.0) % MCV 109.3 H (80.0-100.0) fL MCH 36.9 H (27.0-34.0) pg RDW 17.7 H (11.6-17.2) % Neut % (Auto) 87.4 H (16.0-70.0) % Lymph % (Auto) 3.5 L (9.0-44.0) % Mason % (Auto) 8.9 H (0.0-8.0) % Neut # (Auto) 8.2 H (1.8-7.7) th/mm3 Lymph # (Auto) 0.3 L (1.0-4.8) th/mm3 Seg Neuts % (Manual) 72 H (16-70) % Band Neuts % (Manual) 23 H (0-6) % Lymphocytes % (Manual) 3 L (9-44) % Abs Neuts (Manual) 9.0 H (1.8-7.7) th/mm3 PT 12.5 H (9.8-11.6) sec BUN 32 H (7-18) mg/dL Creatinine 1.59 H (0.60-1.30) mg/dL Estimated GFR 41 L (>89) mL/min Random Glucose 126 H (74-106) mg/dL B-Natriuretic Peptide (0-100) pg/mL Total Protein 6.0 L (6.4-8.2) g/dL Albumin 2.5 L (3.4-5.0) g/dL Urine Clarity (Clear) Amorphous Sediment (None) /hpf Urine Bacteria (None) /hpf Urine Mucus (Occasional) /lpf 01/07/18 01/07/18 Range/Units 09:52 11:28 RBC (4.50-5.90) mil/mm3 Hgb (13.0-17.0) gm/dL Hct (39.0-51.0) % MCV (80.0-100.0) fL MCH (27.0-34.0) pg RDW (11.6-17.2) % Neut % (Auto) (16.0-70.0) % Lymph % (Auto) (9.0-44.0) % Mason % (Auto) (0.0-8.0) % Neut # (Auto) (1.8-7.7) th/mm3 Lymph # (Auto) (1.0-4.8) th/mm3 Seg Neuts % (Manual) (16-70) % Band Neuts % (Manual) (0-6) % Lymphocytes % (Manual) (9-44) % Abs Neuts (Manual) (1.8-7.7) th/mm3 PT (9.8-11.6) sec BUN (7-18) mg/dL Creatinine (0.60-1.30) mg/dL Estimated GFR (>89) mL/min Random Glucose (74-106) mg/dL B-Natriuretic Peptide 308 H (0-100) pg/mL Total Protein (6.4-8.2) g/dL Albumin (3.4-5.0) g/dL Urine Clarity Hazy H (Clear) Amorphous Sediment Occasional H (None) /hpf Urine Bacteria Rare H (None) /hpf Urine Mucus Few H (Occasional) /lpf Short CBC 01/07/18 Range/Units 09:52 WBC 9.4 (4.0-11.0) th/mm3 Hgb 8.7 L (13.0-17.0) gm/dL Hct 25.8 L (39.0-51.0) % Plt Count 156 (150-450) th/mm3 BMP 01/07/18 09:52 Sodium 139 Potassium 4.0 Chloride 105 Carbon Dioxide 22.8 BUN 32 H Creatinine 1.59 H Calcium 8.5 Cardiac Enzymes 01/07/18 01/07/18 01/07/18 Range/Units 09:52 09:52 13:03 Total Creatine Kinase 67 (39-308) U/L Troponin I 0.05 0.05 (0.02-0.05) ng/mL Liver Function 01/07/18 Range/Units 09:52 Total Bilirubin 0.7 (0.2-1.0) mg/dL AST 20 (15-37) U/L ALT 21 (12-78) U/L Alkaline Phosphatase 78 (45-117) U/L Albumin 2.5 L (3.4-5.0) g/dL Urine 01/07/18 Range/Units 11:28 Urine Color Yellow (Yellw/Straw) Urine Clarity Hazy H (Clear) Urine pH 5.0 (5.0-8.5) Ur Specific [place] 1.013 (1.002-1.035) Urine Protein Negative (Neg-Trace) mg/dL Urine Glucose (UA) Negative (Negative) mg/dL <Arturo Haley - 01/08/18 06:54> Abnormal lab results 01/07/18 01/07/18 01/07/18 Range/Units 09:52 09:52 09:52 RBC 2.36 L (4.50-5.90) mil/mm3 Hgb 8.7 L (13.0-17.0) gm/dL Hct 25.8 L (39.0-51.0) % MCV 109.3 H (80.0-100.0) fL MCH 36.9 H (27.0-34.0) pg RDW 17.7 H (11.6-17.2) % Neut % (Auto) 87.4 H (16.0-70.0) % Lymph % (Auto) 3.5 L (9.0-44.0) % Mason % (Auto) 8.9 H (0.0-8.0) % Neut # (Auto) 8.2 H (1.8-7.7) th/mm3 Lymph # (Auto) 0.3 L (1.0-4.8) th/mm3 Seg Neuts % (Manual) 72 H (16-70) % Band Neuts % (Manual) 23 H (0-6) % Lymphocytes % (Manual) 3 L (9-44) % Abs Neuts (Manual) 9.0 H (1.8-7.7) th/mm3 PT 12.5 H (9.8-11.6) sec BUN 32 H (7-18) mg/dL Creatinine 1.59 H (0.60-1.30) mg/dL Estimated GFR 41 L (>89) mL/min Random Glucose 126 H (74-106) mg/dL B-Natriuretic Peptide (0-100) pg/mL Total Protein 6.0 L (6.4-8.2) g/dL Albumin 2.5 L (3.4-5.0) g/dL Urine Clarity (Clear) Amorphous Sediment (None) /hpf Urine Bacteria (None) /hpf Urine Mucus (Occasional) /lpf 01/07/18 01/07/18 Range/Units 09:52 11:28 RBC (4.50-5.90) mil/mm3 Hgb (13.0-17.0) gm/dL Hct (39.0-51.0) % MCV (80.0-100.0) fL MCH (27.0-34.0) pg RDW (11.6-17.2) % Neut % (Auto) (16.0-70.0) % Lymph % (Auto) (9.0-44.0) % Mason % (Auto) (0.0-8.0) % Neut # (Auto) (1.8-7.7) th/mm3 Lymph # (Auto) (1.0-4.8) th/mm3 Seg Neuts % (Manual) (16-70) % Band Neuts % (Manual) (0-6) % Lymphocytes % (Manual) (9-44) % Abs Neuts (Manual) (1.8-7.7) th/mm3 PT (9.8-11.6) sec BUN (7-18) mg/dL Creatinine (0.60-1.30) mg/dL Estimated GFR (>89) mL/min Random Glucose (74-106) mg/dL B-Natriuretic Peptide 308 H (0-100) pg/mL Total Protein (6.4-8.2) g/dL Albumin (3.4-5.0) g/dL Urine Clarity Hazy H (Clear) Amorphous Sediment Occasional H (None) /hpf Urine Bacteria Rare H (None) /hpf Urine Mucus Few H (Occasional) /lpf Short CBC 01/07/18 Range/Units 09:52 WBC 9.4 (4.0-11.0) th/mm3 Hgb 8.7 L (13.0-17.0) gm/dL Hct 25.8 L (39.0-51.0) % Plt Count 156 (150-450) th/mm3 BMP 01/07/18 09:52 Sodium 139 Potassium 4.0 Chloride 105 Carbon Dioxide 22.8 BUN 32 H Creatinine 1.59 H Calcium 8.5 Cardiac Enzymes 01/07/18 01/07/18 Range/Units 09:52 09:52 Total Creatine Kinase 67 (39-308) U/L Troponin I 0.05 (0.02-0.05) ng/mL Liver Function 01/07/18 Range/Units 09:52 Total Bilirubin 0.7 (0.2-1.0) mg/dL AST 20 (15-37) U/L ALT 21 (12-78) U/L Alkaline Phosphatase 78 (45-117) U/L Albumin 2.5 L (3.4-5.0) g/dL Urine 01/07/18 Range/Units 11:28 Urine Color Yellow (Yellw/Straw) Urine Clarity Hazy H (Clear) Urine pH 5.0 (5.0-8.5) Ur Specific [place] 1.013 (1.002-1.035) Urine Protein Negative (Neg-Trace) mg/dL Urine Glucose (UA) Negative (Negative) mg/dL <Shiloh Hein - 01/07/18 13:33> - Imaging Impressions Abdomen/Pelvis CT 01/07/18 09:46 CONCLUSION: 1. Atherosclerosis. 2. Body wall edema. 3. No evidence for bowel obstruction, free fluid or free air. Chest X-Ray 01/07/18 09:46 CONCLUSION: 1. Chronic senescent changes with stable left basilar atelectasis/scarring. Head CT 01/07/18 09:46 CONCLUSION: 1. Stable atrophy. 2. Right mastoid and middle ear opacification. . <Arturo Haley - 01/08/18 06:54> Impressions Abdomen/Pelvis CT 01/07/18 09:46 CONCLUSION: 1. Atherosclerosis. 2. Body wall edema. 3. No evidence for bowel obstruction, free fluid or free air. Chest X-Ray 01/07/18 09:46 CONCLUSION: 1. Chronic senescent changes with stable left basilar atelectasis/scarring. Head CT 01/07/18 09:46 CONCLUSION: 1. Stable atrophy. 2. Right mastoid and middle ear opacification. . <Shiloh Hein - 01/07/18 13:33> Caprini VTE Risk Assessment Caprini VTE Risk Assessment: Moderate/High Risk (score >= 2) <Shiloh Hein - 01/07/18 16:48> Caprini Risk Assessment Model: Point Value = 1 Point Value = 2 Point Value = 3 Point Value = 5 Age 41-60 Minor surgery BMI > 25 kg/m2 Swollen legs Varicose veins or History of unexplained or recurrent spontaneous Oral contraceptives or hormone replacement Sepsis (< 1 month) Serious lung disease, including pneumonia (< 1 month) Abnormal pulmonary function Acute myocardial infarction Congestive heart failure (< 1 month) History of inflammatory bowel disease Medical patient at bed rest Age 61-74 Arthroscopic surgery Major open surgery (> 45 min) Laparoscopic surgery (> 45 min) Malignancy Confined to bed (> 72 hours) Immobilizing plaster cast Central venous access Age >= 75 History of VTE Family history of VTE Factor V Leiden Prothrombin [id number] Lupus anticoagulant Anticardiolipin antibodies Elevated serum homocysteine Heparin-induced thrombocytopenia Other congenital or acquired thrombophilia Stroke (< 1 month) Elective arthroplasty Hip, pelvis, or leg fracture Acute spinal cord injury (< 1 month) <Arturo Haley - 01/08/18 06:54> Point Value = 1 Point Value = 2 Point Value = 3 Point Value = 5 Age 41-60 Minor surgery BMI > 25 kg/m2 Swollen legs Varicose veins or History of unexplained or recurrent spontaneous Oral contraceptives or hormone replacement Sepsis (< 1 month) Serious lung disease, including pneumonia (< 1 month) Abnormal pulmonary function Acute myocardial infarction Congestive heart failure (< 1 month) History of inflammatory bowel disease Medical patient at bed rest Age 61-74 Arthroscopic surgery Major open surgery (> 45 min) Laparoscopic surgery (> 45 min) Malignancy Confined to bed (> 72 hours) Immobilizing plaster cast Central venous access Age >= 75 History of VTE Family history of VTE Factor V Leiden Prothrombin [id number] Lupus anticoagulant Anticardiolipin antibodies Elevated serum homocysteine Heparin-induced thrombocytopenia Other congenital or acquired thrombophilia Stroke (< 1 month) Elective arthroplasty Hip, pelvis, or leg fracture Acute spinal cord injury (< 1 month) <Shiloh Hein - 01/07/18 13:33> Prophylaxis Regimen: Total Risk Factor Score Risk Level Prophylaxis Regimen 0-1 Low Early ambulation 2 Moderate Order ONE of the following: *Sequential Compression Device (SCD) *Heparin 5000 units SQ BID 3-4 Higher Order ONE of the following medications: *Heparin 5000 units SQ TID *Enoxaparin/Lovenox 40 mg SQ daily (WT < 150 kg, CrCl > 30 mL/min) *Enoxaparin/Lovenox 30 mg SQ daily (WT < 150 kg, CrCl > 10-29 mL/min) *Enoxaparin/Lovenox 30 mg SQ BID (WT < 150 kg, CrCl > 30 mL/min) AND/OR *Sequential Compression Device (SCD) 5 or more Highest Order ONE of the following medications: *Heparin 5000 units SQ TID (Preferred with Epidurals) *Enoxaparin/Lovenox 40 mg SQ daily (WT < 150 kg, CrCl > 30 mL/min) *Enoxaparin/Lovenox 30 mg SQ daily (WT < 150 kg, CrCl > 10-29 mL/min) *Enoxaparin/Lovenox 30 mg SQ BID (WT < 150 kg, CrCl > 30 mL/min) AND *Sequential Compression Device (SCD) <Arturo Haley - 01/08/18 06:54> Total Risk Factor Score Risk Level Prophylaxis Regimen 0-1 Low Early ambulation 2 Moderate Order ONE of the following: *Sequential Compression Device (SCD) *Heparin 5000 units SQ BID 3-4 Higher Order ONE of the following medications: *Heparin 5000 units SQ TID *Enoxaparin/Lovenox 40 mg SQ daily (WT < 150 kg, CrCl > 30 mL/min) *Enoxaparin/Lovenox 30 mg SQ daily (WT < 150 kg, CrCl > 10-29 mL/min) *Enoxaparin/Lovenox 30 mg SQ BID (WT < 150 kg, CrCl > 30 mL/min) AND/OR *Sequential Compression Device (SCD) 5 or more Highest Order ONE of the following medications: *Heparin 5000 units SQ TID (Preferred with Epidurals) *Enoxaparin/Lovenox 40 mg SQ daily (WT < 150 kg, CrCl > 30 mL/min) *Enoxaparin/Lovenox 30 mg SQ daily (WT < 150 kg, CrCl > 10-29 mL/min) *Enoxaparin/Lovenox 30 mg SQ BID (WT < 150 kg, CrCl > 30 mL/min) AND *Sequential Compression Device (SCD) <Shiloh Hein - 01/07/18 13:33> Assessment and Plan - Assessment (1) Altered mental status Code(s): R41.82 - Altered mental status, unspecified Status: Acute Plan: 79-year-old male presenting with gradual worsening of altered mental status. Consider delirium due to infection vs. dehydration vs. malnutrition vs. dementia. CT head performed in ED showed no acute intracranial hemorrhage, mass, or infarction. Notable for stable atrophy specifically "diffuse volume loss greatest in the frontal regions". Chest x-ray showed "chronic senescent changes with stable left basilar atelectasis/scarring". EKG is within normal limits: Shows ventricularly paced rhythm. CBC showed white count of 9.4, with bandemia of 23% Blood cultures x2 collected in emergency department. Awaiting final results. UA showed no signs of UTI. Ordered ammonia level, TSH, T4, RPR, vitamin B12 levels, folate levels, MMA levels. Ordered VBG. Physical therapy consulted for evaluation and treatment. Speech therapy consulted for formal swallow study. Patient will be kept n.p.o. till cleared by speech. (2) Dehydration Code(s): E86.0 - Dehydration Status: Acute Plan: On physical exam patient has dry mucous membranes and dry skin. BUN/Creatinine slightly elevated from baseline. Patient tolerating fluids, but has decreased p.o. intake overall. Patient received 1 L normal saline bolus in ED. Will give another 500 mL bolus and reevaluate. Continue to trend BUN/creatinine and electrolyte levels. (3) Acute on chronic renal insufficiency Code(s): N28.9 - Disorder of kidney and ureter, unspecified; N18.9 - Chronic kidney disease, unspecified Status: Acute Plan: Patient with history of chronic renal insufficiency. Estimated GFR was 41 on admission. BUN/creatinine was 32/1.59 today, which is mildly elevated compared to prior hospital visits. Likely ELIZABETH due to dehydration on top of chronic renal insufficiency. See plan above for dehydration. (4) Bandemia Code(s): D72.825 - Bandemia Status: Acute Plan: Rule out of infection source started in the ED has been negative so far. Awaiting blood culture results. Patient started on Vancomycin and Zosyn in the ED. We will continue antibiotic treatment. Plan to discontinue if blood cultures are negative. Will continue to monitor CBC with differential for resolution of bandemia. (5) Diffuse abdominal pain Code(s): R10.84 - Generalized abdominal pain Status: Acute Plan: Patient complaining of diffuse abdominal pain associated with nausea. Consider pancreatitis vs. gastroparesis vs. gastroenteritis. CT abdomen performed in ED showed no evidence of bowel obstruction, free fluid, or free air. CMP within normal limits, aside from elevated BUN/creatinine. Ordered lipase. We will stop home Zofran. Will trial patient with Reglan. (6) Elevated brain natriuretic peptide (BNP) level Code(s): R79.89 - Other specified abnormal findings of blood chemistry Status : Acute Plan: BNP elevated to 308. Patient without physical signs of fluid overload. Will continue with gentle fluid hydration, with close monitoring for physical exam signs and laboratory values indicating possible fluid overload. (7) Hypothyroid Code(s): E03.9 - Hypothyroidism, unspecified Status: Chronic Plan: Patient with history of hypothyroidism, well controlled on levothyroxine 25 mcg daily. Will continue home medication in a.m. Thyroid studies ordered. (8) History of depression Code(s): Z86.59 - Personal history of other mental and behavioral disorders Status: Chronic Plan: Patient with history of depression, on trazodone 50 mg p.o. daily, mirtazapine 15 mg p.o. daily, and escitalopram 5 mg p.o. daily. Due to altered mental status will hold trazodone due to sedating effects. Patient currently n.p.o., plan to restart home meds in the morning. (9) Nutrition, metabolism, and development symptoms Code(s): R63.8 - Other symptoms and signs concerning food and fluid intake Status: Acute Plan: Fluids: 500 mL bolus ordered. Will reevaluate and consider further hydration at that point based on patient's response to fluid bolus. Electrolytes: No notable electrolyte abnormalities at this time. We will continue to monitor and replete as necessary. Nutrition: We will keep patient n.p.o. while awaiting swallow study. (10) DVT prophylaxis Status: Acute <Shiloh Heni - 01/07/18 23:56> (1) Dehydration Code(s): E86.0 - Dehydration Status: Acute (2) Chronic kidney disease Code(s): N18.9 - Chronic kidney disease, unspecified Status: Acute (3) Hypothyroid Code(s): E03.9 - Hypothyroidism, unspecified Status: Chronic (4) Acute on chronic renal insufficiency Code(s): N28.9 - Disorder of kidney and ureter, unspecified; N18.9 - Chronic kidney disease, unspecified Status: Acute (5) Bandemia Code(s): D72.825 - Bandemia Status: Acute (6) Altered mental status Code(s): R41.82 - Altered mental status, unspecified Status: Acute <Arturo Haley - 01/08/18 06:54> - Assessment and Plan Patient's family agreeable to palliative care consult. <Shiloh Hein - 01/07/18 23:55> - Attending Attestation Patient examined with resident physicians and case discussed with resident medical team I have read the above note and agree with the assessment/plan as discussed with me I was involved in all medical decision making for this patient Patient seems to have progressive and chronic decline in cognitive and physical function with a relatively rapid decline over the last several days. This could be due to infection versus other causes such as progressive dementia. He has decreased his oral intake of both food and liquids. At this time, we will proceed with a workup for reversible causes of altered mental status. I did have a long conversation with his sons and they are agreeable to a palliative care consult to see what resources are available in the event that some of this physical and mental decline is nonreversible. Arturo Haley MD <Arturo Haley - 01/08/18 06:54> <Sung,Shiloh B - Last Filed: 01/07/18 23:56> (7) Hypothyroid Qualifiers: Hypothyroidism type: unspecified Qualified Code(s): E03.9 - Hypothyroidism, unspecified <TeraArturo encarnacion - Last Filed: 01/08/18 06:54> (3) Hypothyroid Qualifiers: Hypothyroidism type: unspecified Qualified Code(s): E03.9 - Hypothyroidism, unspecified <Angel LuisShiloh B - Last Filed: 01/07/18 23:56> (7) Hypothyroid Qualifiers: Hypothyroidism type: unspecified Qualified Code(s): E03.9 - Hypothyroidism, unspecified <Arturo Haley - Last Filed: 01/08/18 06:54> (3) Hypothyroid Qualifiers: Hypothyroidism type: unspecified Qualified Code(s): E03.9 - Hypothyroidism, unspecified
[2018-01-07] MEDS ORDERED: Acetaminophen 325 MG Tablet PO PRN (15:15)
[2018-01-07] MEDS ORDERED: Bisacodyl 10 MG Supp RECTAL PRN (15:15)
--- NOTE | 2018-01-07 16:18 | ECG ---
Date Performed: 01/07/2018 Time Performed: 09:39:04 PTAGE: 87 years EKG: ELECTRONIC VENTRICULAR PACEMAKER Since previous tracing, no significant change noted ABNORM AL RHYTHM ECG PREVIOUS TRACING : 09/26/2017 21.07.59 DOCTOR: Yazmin Emerson Interpretating Date/Time 01/07/2018 16:16:41
--- NOTE | 2018-01-07 16:35 | P.CONPAL ---
Consult Service: Palliative Care Requesting Physician: Shiloh Hein Reason for Consult: a. To assist with evaluation and management of symptoms including: AMS b. To assist medical decision maker(s) with: better understanding of current medical conditions; weighing benefits/burdens of medical treatment options; making medical treatment decisions. Primary Care Provider: Bebo Chahal MD History of Present Illness History of Present Illness: This 87 yo mail presented 01/07/18, from his [facility] for evaluation of altered mental status. EMS reports family noted in the past patient with some confusion this is progressed over the past 4-5 weeks they were concerns requested ED evaluation. Patient is alert and oriented only to person. Only complaint is stomach pain. Noted to be a poor historian. * In the ED started on IV fluid tachycardic heart rate CT abdomen pelvis ordered to further evaluate abdominal pain though exam is benign. Labs: WBC 9.4 , hemoglobin 8.7, hematocrit. Platelets 156. 23% band neutrophils. CXR notes left basilar atelectasis versus scarring. CT brain= stable atrophy, right mastoid and middle ear opacification. CT abdomen pelvis= body wall edema no evidence of bowel obstruction or free fluid or air. Started on vancomycin, Zosyn. Plan for admission for further evaluation and management * palliative care consulted to assist with clarification of goals of treatment. Patient seen in room,2 sons Anthony Marcelo present. Patient is awake though poor historian, generally confused hard of hearing sons primarily participate in conversation. Sons detail generalized trajectory of decline onset around March of this year. At that time he seems to have a very bad stomach "bug "with nausea vomiting GI issues which affected his eating. That was treated and stabilized however from then he continued to have declined he began having frequent falls possible syncope episodes, eventually cardiac workup revealed arrhythmias and a pacemaker was placed this past spring. Sons report syncope and falls resolved after that. He continued to have some vague GI issues poor appetite nausea though no vomiting. Had EGD and GI workup sons report findings only of inflammation, gastritis. He changed to a modified diet eliminating dairy which seemed to help somewhat though appetite never fully improved and weight has continued to fluctuate from 110-118. He moved to an [facility] setting in May due to some increased care needs prior to that was still living independently and running his own household. Still ambulatory with a walker. Sons report CML has been in remission for some years follows with oncology every 6 months. In the past 2 weeks sons noted confusion seemed to be onset in the evening would worsen overnight, and improved slightly during the day. Patient would still be at times oriented to family but talking about remote events 30 years ago or things that did not happen or talking to his brother's. He has hardly been eating since last week. No other changes noted no fevers cough etc. no recent falls. During my exam patient is hard of hearing, cooperative. No focal deficits. Mucous membranes very dry which seemed to be contributing to slurred speech. At times speech is slurred. Oriented to self, names his son Benton however this is not the son that is present. Talks about his birthday on [birth year] which is correct. Appears to have no insight into hospitalization. Does tell me he feels nearly 100% now, that he feels better. He endorses some abdominal pain and seems to have very mild tenderness with palpation. * * Patient reported to have 14+ hospitalizations in the past 1 year, general progressive decline. Of note may have been seen by Dr. Ornelas 11/01 for iron deficiency anemia. He did have an ED presentation from [facility] for reports of confusion and generalized weakness. Not drinking much fluid. Reported to have been transfused 2 units of blood that week due to hemoglobin 7.1. Also underwent EEG endoscopies and plan for endoscopy outpatient. Hemoglobin 8.9. His orientation at ED presentation was a and O x3 son reported it was better. He was ambulatory at that time with a rolling walker, alert and oriented x3. He was also hospitalized 07/09/17 for tachyarrhythmia. He apparently had SVT required cardioversion, also reported to have atrial fibrillation. Required multiple treatments with cardioversion, amiodarone. He had recently seen cardiology for possible ablation. 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 Ornelas. He apparently has had multiple admissions to [facility]. 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) Neurologic: Reports abnormal speech, Reports confusion Psychiatric: Reports confusion Hematologic/Lymphatic: Reports easy bruising PMFSH - History History Provided By: Family Member - Medical History Medical History: Medical History (Last Updated 01/07/18 @ 16:31 by KERRIE Montiel) CML (chronic myeloid leukemia) HTN (hypertension) Rotator cuff injury SVT (supraventricular tachycardia) Skin cancer GI bleed Pacemaker TIA (transient ischemic attack) - Surgical History Surgical History: Surgical History (Last Updated 01/07/18 @ 16:30 by KERRIE Montiel) History of bone marrow biopsy History of esophagogastroduodenoscopy (EGD) S/P skin biopsy - Family History Family History: Family History (Last Updated 01/07/18 @ 16:32 by KERRIE Montiel) Brother CML (chronic myelocytic leukemia) Brother Colon cancer Son Heart attack - Social History I have reviewed the patient's Social History: Yes - Tobacco History Second Hand Smoke Exposure: No Tobacco Use In Past 30 Days: No Smoking Status: Never smoker - Alcohol History How Often Do You Have a Drink Containing Alcohol: Never - Substance Use History Substance History: No History of Abuse - Travel History Recent Travel in the [place] Within the Last 8 Weeks: No Recent Travel Out of the Country Within the Last 8 Weeks: No - Immunization History Tetanus Immunization: Unsure Medications and Allergies Active Medications: Active Medications Acetaminophen (Tylenol) 650 mg PO Q4H PRN PRN Reason: Temp > 100.4 Al Hydroxide/Mg Hydroxide (Milk Of Magnesia Liq) 30 ml PO Q12H PRN PRN Reason: Mild Constipation Bisacodyl (Dulcolax Supp) 10 mg RECTAL DAILY PRN PRN Reason: SEVERE CONSITIPATION Sodium Chloride (Ns Inj) 500 mls @ 0 mls/hr IV.SIG BOLUS RACHELL Piperacillin/Tazobactam/Dextrose (Zosyn 3.375 Gm Premix) 50 mls @ 100 mls/hr IV.SIG Q6H RACHELL Vancomycin HCl 1,000 mg/ (Sodium Chloride) 250 mls @ 250 mls/hr IV.SIG Q12H RACHELL Lactulose (Lactulose Liq) 30 ml PO DAILY PRN PRN Reason: SEVERE CONSITIPATION Levothyroxine Sodium (Synthroid) 25 mcg PO DAILY@0600 [facility] Metoclopramide HCl (Reglan Inj) 5 mg IV.PUSH Q6HR PRN; Protocol PRN Reason: NAUSEA OR VOMITING Midodrine (Proamatine) 10 mg PO BID [facility] Non-Formulary Medication (Erythromycin [Erythromycin]) 0.5 inch EACH EYE QID [facility] Non-Formulary Medication (Imatinib [Imatinib]) 400 mg PO DAILY [facility] Sennosides (Senokot) 17.2 mg PO Q12H PRN PRN Reason: Moderate Constipation Sodium Chloride (Ns Flush) 2 ml IV.FLUSH PRN PRN PRN Reason: FLUSH AFTER USING IV ACCESS Allergies Allergy/AdvReac Type Severity Reaction Status Date / Time adhesive AdvReac Rash Verified 01/07/18 09:46 Home Medications Medication Instructions Recorded Confirmed Type alprazolam 0.5 mg PO DAILY PRN 09/26/17 01/07/18 History calcium carbonate [Calcium 500] 500 mg PO DAILY 09/26/17 01/07/18 History dutasteride 0.5 mg PO DAILY 09/26/17 01/07/18 History ferrous sulfate [Feosol] 325 mg PO BID 09/26/17 01/07/18 History furosemide [Lasix] 20 mg PO DAILY 09/26/17 01/07/18 History imatinib 400 mg PO DAILY 09/26/17 01/07/18 History levothyroxine 25 mcg PO DAILY 09/26/17 01/07/18 History midodrine 10 mg PO BID 09/26/17 01/07/18 History ondansetron 8 mg PO TID PRN 09/26/17 01/07/18 History cyanocobalamin (vitamin B-12) 1,000 mcg IM QMONTH 01/07/18 01/07/18 History erythromycin 0.5 inch OPHTHALMIC (EYE) QID 01/07/18 01/07/18 History escitalopram oxalate 5 mg PO DAILY 01/07/18 01/07/18 History megestrol 400 mg PO BID 01/07/18 01/07/18 History mirtazapine 15 mg PO DAILY 01/07/18 01/07/18 History pantoprazole 40 mg PO DAILY 01/07/18 01/07/18 History trazodone 50 mg PO DAILY 01/07/18 01/07/18 History Advance Directives Advance Directives Date on File: 01/07/18 Living Will: Yes Healthcare Surrogate: Yes Health Care Surrogate Name and Number: Nikko Wren Documented care wishes: Living will has standard verbiage detailing if terminal, end-stage or persistent vegetative conditions request no artificial measures. Names 2 Edward Wren as surrogates. Ethical and Legal Issues: Patient currently confused unable to make his own decisions. He does have advanced directives dated 2008 naming garfield Marcelo, garfield lE as surrogates. Physical Exam Vital Signs: Vital Signs - 24 hr 01/07/18 09:35 01/07/18 09:42 01/07/18 13:13 Temperature 97.7 F Pulse Rate 113 H 102 H Respiratory Rate 24 19 Blood Pressure 113/61 125/58 L Pulse Oximetry 100 98 01/07/18 15:25 Temperature Pulse Rate 97 H Respiratory Rate 18 Blood Pressure 113/56 L Pulse Oximetry I&O: Intake & Output 01/05/18 01/06/18 01/07/18 01/08/18 06:59 06:59 06:59 06:59 Intake Total 1300 / 1300 Balance 1300 / 1300 Weight 65.771 kg Physical Exam: DRAFT CONSTITUTIONAL/GENERAL: This is a frail, ill appearing elderly man TUBES/LINES/DRAINS:PIV upper extremity SKIN: No jaundice, rashes. 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 large area faint ecchymoses on forearms. No wounds seen anteriorly. Skin warm dry. Pale. HEAD: Atraumatic. Normocephalic. EYES: Pupils equal and round and reactive. Extraocular motions intact. No scleral icterus. No injection . +some clear drainage. Fundi not examined. ENT: [facility]. Nose without bleeding or purulent drainage. Throat without visible erythema, exudates, masses, or lesions. MM dry.+ dried secretions NECK: Trachea midline. Supple, nontender. No palpable thyroid enlargement or nodularity. CARDIOVASCULAR: Regular rate and rhythm without murmur. No JVD. Peripheral pulses symmetric. RESPIRATORY/CHEST: Symmetric, unlabored respirations. Clear to auscultation. Breath sounds equal bilaterally. GASTROINTESTINAL: Abdomen soft, mildly tender, nondistended. No hepato- splenomegaly, or palpable masses. Bowel sounds present. GENITOURINARY: Without palpable bladder distension. MUSCULOSKELETAL: Extremities without clubbing, cyanosis, or edema. No joint tenderness or effusion noted. No calf tenderness. very thin, muscle atrophy x4 LYMPHATICS: No palpable cervical or supraclavicular adenopathy. NEUROLOGICAL: Awake and alert. Oriented x1-2. poor insight. [facility]. Follows simple commands. Speech difficult to understand,slightly slurred may be 2/2 dry Mucous membranes. Moves all 4 extremities. PSYCHIATRIC: No obvious anxiety/depression. no apparent hallucinations or other psychotic thought process. Diagnostic Tests Laboratory: Laboratory Results - last 72 hr 01/07/18 01/07/18 01/07/18 09:52 09:52 09:52 WBC 9.4 RBC 2.36 L Hgb 8.7 L Hct 25.8 L MCV 109.3 H MCH 36.9 H MCHC 33.7 RDW 17.7 H Plt Count 156 MPV 8.9 Prelim Diff (Auto) Slide review pending Neut % (Auto) 87.4 H Lymph % (Auto) 3.5 L [place] % (Auto) 8.9 H Eos % (Auto) 0.1 Baso % (Auto) 0.1 Neut # (Auto) 8.2 H Lymph # (Auto) 0.3 L [place] # (Auto) 0.8 Eos # (Auto) 0.0 Baso # (Auto) 0.0 WBC Differential Manual diff final Seg Neuts % (Manual) 72 H Band Neuts % (Manual) 23 H Lymphocytes % (Manual) 3 L Monocytes % (Manual) 1 Metamyelocytes % (Man) 1 Abs Neuts (Manual) 9.0 H Differential Comment . Platelet Estimate Normal Platelet Morphology Normal PT 12.5 H INR 1.2 APTT 26.1 Sodium 139 Potassium 4.0 Chloride 105 Carbon Dioxide 22.8 Anion Gap 11 BUN 32 H Creatinine 1.59 H Estimated GFR 41 L Random Glucose 126 H Calcium 8.5 Total Bilirubin 0.7 AST 20 ALT 21 Alkaline Phosphatase 78 Total Creatine Kinase Troponin I 0.05 B-Natriuretic Peptide Total Protein 6.0 L Albumin 2.5 L Urine Color Urine Clarity Urine pH Ur Specific [place] Urine Protein Urine Glucose (UA) Urine Ketones Urine Occult Blood Urine Nitrate Urine Bilirubin Urine Urobilinogen Ur Leukocyte Esterase Urine RBC Urine WBC Amorphous Sediment Urine Bacteria Hyaline Casts Granular Casts Urine Mucus Micro UA Comment Ur Microscopic Review Urine Culture Comments 01/07/18 01/07/18 01/07/18 09:52 09:52 11:28 WBC RBC Hgb Hct MCV MCH MCHC RDW Plt Count MPV Prelim Diff (Auto) Neut % (Auto) Lymph % (Auto) [place] % (Auto) Eos % (Auto) Baso % (Auto) Neut # (Auto) Lymph # (Auto) [place] # (Auto) Eos # (Auto) Baso # (Auto) WBC Differential Seg Neuts % (Manual) Band Neuts % (Manual) Lymphocytes % (Manual) Monocytes % (Manual) Metamyelocytes % (Man) Abs Neuts (Manual) Differential Comment Platelet Estimate Platelet Morphology PT INR APTT Sodium Potassium Chloride Carbon Dioxide Anion Gap BUN Creatinine Estimated GFR Random Glucose Calcium Total Bilirubin AST ALT Alkaline Phosphatase Total Creatine Kinase 67 Troponin I B-Natriuretic Peptide 308 H Total Protein Albumin Urine Color Yellow Urine Clarity Hazy H Urine pH 5.0 Ur Specific [place] 1.013 Urine Protein Negative Urine Glucose (UA) Negative Urine Ketones Negative Urine Occult Blood Negative Urine Nitrate Negative Urine Bilirubin Negative Urine Urobilinogen Less than 2 Ur Leukocyte Esterase Negative Urine RBC Less than 1 Urine WBC Less than 1 Amorphous Sediment Occasional H Urine Bacteria Rare H Hyaline Casts 8 Granular Casts 1 Urine Mucus Few H Micro UA Comment Culture not ind Ur Microscopic Review Not Reportable Urine Culture Comments Culture not ind 01/07/18 13:03 WBC RBC Hgb Hct MCV MCH MCHC RDW Plt Count MPV Prelim Diff (Auto) Neut % (Auto) Lymph % (Auto) [place] % (Auto) Eos % (Auto) Baso % (Auto) Neut # (Auto) Lymph # (Auto) [place] # (Auto) Eos # (Auto) Baso # (Auto) WBC Differential Seg Neuts % (Manual) Band Neuts % (Manual) Lymphocytes % (Manual) Monocytes % (Manual) Metamyelocytes % (Man) Abs Neuts (Manual) Differential Comment Platelet Estimate Platelet Morphology PT INR APTT Sodium Potassium Chloride Carbon Dioxide Anion Gap BUN Creatinine Estimated GFR Random Glucose Calcium Total Bilirubin AST ALT Alkaline Phosphatase Total Creatine Kinase Troponin I 0.05 B-Natriuretic Peptide Total Protein Albumin Urine Color Urine Clarity Urine pH Ur Specific [place] Urine Protein Urine Glucose (UA) Urine Ketones Urine Occult Blood Urine Nitrate Urine Bilirubin Urine Urobilinogen Ur Leukocyte Esterase Urine RBC Urine WBC Amorphous Sediment Urine Bacteria Hyaline Casts Granular Casts Urine Mucus Micro UA Comment Ur Microscopic Review Urine Culture Comments Result Diagrams: 01/08/18 10:38 01/08/18 10:38 Imaging: Impressions Abdomen/Pelvis CT 01/07/18 09:46 CONCLUSION: 1. Atherosclerosis. 2. Body wall edema. 3. No evidence for bowel obstruction, free fluid or free air. Chest X-Ray 01/07/18 09:46 CONCLUSION: 1. Chronic senescent changes with stable left basilar atelectasis/scarring. Head CT 01/07/18 09:46 CONCLUSION: 1. Stable atrophy. 2. Right mastoid and middle ear opacification. . Patient/Family Conference Present at Family Conference: 2 sons, pt Family Conference Time: 40 Family Conference Location: Bedside Issues Discussed: Met w 2 sons, pt at bedside. Pt w limited participation. discussion included: * Palliative care role, purpose, approach * Additional medical, psychosocial, history * Patients general health, functional status, and cognitive changes in the months leading up to the current hospitalization * Patient/family understanding of the current medical problems * Patient/family understanding of prognosis * Patients goals of care as best understood from advance directives and/or conversations and/or values * Current medical treatment options and benefits/burdens of those options * code status/ CPR benefits/burdens/limitations- requested full code * legal decision makers per [facility] * Questions answered to the best of my ability * Palliative care contact information provided Assessment and Plan - Disease Oriented Problem List (1) Hypothyroid (2) Acute on chronic renal insufficiency (3) Bandemia (4) Altered mental status (5) Dehydration (6) Chronic kidney disease (7) Diffuse abdominal pain (8) Hypertension (9) CML (chronic myeloid leukemia) in relapse - Symptom Scale (1) Altered mental status 0-10 Scale: Unable to quantify (2) Diffuse abdominal pain 0-10 Scale: Unable to quantify Pertinent Non-Medical Issues: Psychosocial: 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 Supported by 4 adult sons, 2 of whom live near him in [place]. Spiritual: Legal::Patient currently confused unable to make his own decisions. He does have advanced directives dated 2008 naming son Davian, son Edward El as surrogates. Ethical issues impacting care no ethical issues identified Important Contacts: Anthony Alas (Son) [phone] Davian Alas (Son) [phone] Prognosis: This patient was admitted for altered mental status. Thus far workup without clear etiology. He does have multiple chronic medical conditions which all seem to be fairly well controlled. He has had multiple hospitalizations in the past 10 months and generalized decline during this time. He does remain at risk for ongoing complications and setbacks related to advanced age, now debilitated status and ongoing medical issues. . Code Status: Full Code Plan: Legal decision maker:Patient currently confused unable to make his own decisions. He does have advanced directives sedated 2008 naming son Davian, son Edward El as surrogates. Goals: Goals for now aggressive family would like to continue diagnostic workup to determine etiology of AMS and if this is in fact treatable. They are open to ongoing discussions as clinical course evolves. They understand he is high risk for potential complications and continued decline. CODE STATUS: Full code SYMPTOMS: --AMS/confusion-onset 1-2 weeks ago. Worsens at night. Some remote history intact. Otherwise previously cognitively sharp. ? Etiology. CT brain negative. Labs without significant etiology identified, urine negative, blood culture pending. --Abdominal pain-patient poor historian. Reports vague abdominal pain. Abdominal exam essentially benign. CT abdomen negative. Palliative care will continue to follow during hospital course as condition evolves, to assist patient/decision-maker with understanding of medical conditions, weighing benefits/burdens of treatment options, for clarification of goals of treatment. Additionally will assist with any symptoms of palliative concern Appreciation Thank you for the opportunity to participate in the care of Edward Alas. Attestation Attestation: To help prompt me to consider important information that might be impacting today's encounter and assessment, information from prior notes written by myself or my colleagues may have been "brought forward" into today's note. My signature on this note, however, is an attestation that I personally performed the exam, history, and/or decision-making noted today, and, unless otherwise indicated, the interactions with patient, family, and staff as well as the review of records all occurred today. I also attest that the listed assessment and stated plan reflect my best clinical judgment today based on the combination of historical information, prior notes, and today's exam/ interactions. When time spent is documented, it refers only to time spent today by the signer, or if indicated, combined time spent today by collaborating physician/nurse practitioner.
[2018-01-07] MEDS ORDERED: Vancomycin Consult Pharmacy OTHER PRN (16:50)
[2018-01-07] MEDS: IMATINIB 400 MG PO SCH (20:32)
[2018-01-07] MEDS: Erythromycin 0.5% Opth Oint 3.5 GM Tube EACH EYE SCH (20:32)
[2018-01-07 20:57] LABS: Folate 12.9 ng/mL (3.1-17.5)
[2018-01-07] MEDS: Piperacil/Tazo 3.375 GM Premix 50 ML IV.SIG SCH (21:16)
[2018-01-07] MEDS: Sodium Chlor 0.9% Inj 500 ML IV.SIG SCH (23:37)
[2018-01-08] MEDS: Erythromycin 0.5% Opth Oint 3.5 GM Tube EACH EYE SCH ×4 (00:10→21:24)
[2018-01-08] MEDS: Vancomycin Inj 1,000 MG in Sodium Chlor 0.9% Inj 250 ML IV.SIG SCH ×2 (02:19→17:20)
[2018-01-08] MEDS: Piperacil/Tazo 3.375 GM Premix 50 ML IV.SIG SCH ×2 (02:24→09:00)
[2018-01-08] MEDS ORDERED: Sodium Chlor 0.9% Inj 500 ML IV.SIG SCH (05:49)
[2018-01-08] MEDS: Sodium Chlor 0.9% Inj 500 ML IV.SIG SCH (05:56)
[2018-01-08] MEDS: IMATINIB 400 MG PO SCH (09:02)
[2018-01-08 11:09] LABS: Baso % (Auto) 0.1 % (0.0-2.0); Eos # (Auto) 0.3 th/mm3 (0.0-0.4); Eos % (Auto) 3.4 % (0.0-4.0); Lymph # (Auto) 0.5 th/mm3 (1.0-4.8); Lymph % (Auto) 5.3 % (9.0-44.0); Mean Corpuscular HGB Conc 33.6 % (32.0-36.0); Mean Corpuscular Hemoglobin 36.3 pg (27.0-34.0); Mean Platelet Volume 8.9 fL (7.0-11.0); Mono # (Auto) 0.6 th/mm3 (0.0-0.9); Neut # (Auto) 7.8 th/mm3 (1.8-7.7); Neut % (Auto) 84.2 % (16.0-70.0); Platelet Count 130 th/mm3 (150-450); Red Blood Count 1.81 mil/mm3 (4.50-5.90); Red Cell Distribution Width 17.8 % (11.6-17.2); White Blood Count 9.2 th/mm3 (4.0-11.0)
[2018-01-08 11:15] LABS: Hematocrit 19.5 % (39.0-51.0); Hemoglobin 6.6 gm/dL (13.0-17.0)
[2018-01-08 11:31] LABS: Alanine Aminotransferase 13 U/L (12-78); Albumin 1.8 g/dL (3.4-5.0); Alkaline Phosphatase 59 U/L (45-117); Anion Gap 8 meq/L (5-15); Aspartate Aminotransferase 18 U/L (15-37); Blood Urea Nitrogen 30 mg/dL (7-18); Calcium 7.8 mg/dL (8.5-10.1); Carbon Dioxide 23.7 meq/L (21.0-32.0); Chloride 111 meq/L (98-107); Glomerular Filtration Rate 55 mL/min (>89); Glucose,Random 81 mg/dL (74-106); Lipase 40 U/L (73-393); Potassium 3.6 meq/L (3.5-5.1); Sodium 143 meq/L (136-145); Total Protein 4.5 g/dL (6.4-8.2)
--- NOTE | 2018-01-08 12:22 | P.DIET ---
Nutritional Evaluation Type of nutrition evaluation: initial Nutrition screening: [facility] (Supplement to PO Intake) Subjective Subjective Comments: Weight loss of 20# over the last 6 months reported. Pt was drinking Chocolate Boost at his ASIF. Preferences obtained and given to the Diet Offiice. Objective - Diagnosis Bandemia, AMS - Objective Body Mass Index: 19.4 % IBW: 84 (IBW = 142#) Body Weight Used for Calculations: Actual (54.4 kg) Energy Needs - Lower Range (kCal/kg): 28 Energy Needs - Upper Range (kCal/kg): 32 Lower Limit kCal/kg (kCals): 1,523 Upper Limit kCal/kg (kCals): 1,741 Lower Limit Protein Factor (Grams per Kg): 1.2 Upper Limit Protein Factor (Grams per Kg): 1.5 Lower Protein Needs (Protein): 65 Upper Protein Needs (Protein): 82 Dietitian Reviewed in Medical Record: Current diet, Curent medications, Intake & Output, Labs, Medical history Diet Order: Mechanical Soft with chopped meat Speech Therapy Recommendations: Yes Objective Comments: Meds include synthroid Assessment Assessment: Pt is at high nutrition risk 2' to dx, weight loss and low wt for ht with a BMI of 19.4. Diet just advanced so adequate po intake has not yet been established. Will send chocolate Ensure on trays (per pt's preference). Each 8 oz serving provides 250 kcals and [address] following. Recommendations: 1. Diet per ST 2. Chocolate Ensure tid 3. Willis pt's preferences. Dietitian to Monitor: Lab values, Supplement acceptance, Intake & Output, Diet tolerance, Weight change, PO Intake, Wound/skin status, Swallow recommendations , Medical course
[2018-01-08 12:34] LABS: Eosinophils 3 % (0-4); Lymphocytes 6 % (9-44); Monocytes 4 % (0-8); Platelet Morphology Normal (Normal)
[2018-01-08 12:35] LABS: Toxic Granulation 1+
[2018-01-08] MEDS ORDERED: Sodium Chlor 0.9% Inj 250 ML IV.SIG SCH (13:00)
[2018-01-08] MEDS ORDERED: Sodium Chloride 0.9% 2 ML Flush PRN IV.FLUSH (13:40)
--- NOTE | 2018-01-08 16:29 | P.PNFP ---
Subjective Interval history: 87 yo with PMH of CML in remission and anemia admitted for altered mental status and progressive weakness, being seen today for follow up. Son at bedside provides majority of the history. Improvement from admission noted, but still weak/fatigued. No chest pains or shortness of breath. <Kunal Whitmore S - 01/08/18 16:25> Results - Labs Result diagrams: 01/08/18 19:55 01/08/18 10:38 <Arturo Haley - 01/08/18 21:49> Abnormal lab results 01/08/18 01/08/18 01/08/18 Range/Units 10:38 10:38 10:38 RBC 1.81 L (4.50-5.90) mil/mm3 Hgb 6.6 L* D (13.0-17.0) gm/dL Hct 19.5 L* (39.0-51.0) % MCV 108.0 H (80.0-100.0) fL MCH 36.3 H (27.0-34.0) pg RDW 17.8 H (11.6-17.2) % Plt Count 130 L (150-450) th/mm3 Neut % (Auto) 84.2 H (16.0-70.0) % Lymph % (Auto) 5.3 L (9.0-44.0) % Neut # (Auto) 7.8 H (1.8-7.7) th/mm3 Lymph # (Auto) 0.5 L (1.0-4.8) th/mm3 Band Neuts % (Manual) 34 H (0-6) % Lymphocytes % (Manual) 6 L (9-44) % Abs Neuts (Manual) 8.0 H (1.8-7.7) th/mm3 Toxic Granulation 1+ H (None) Platelet Estimate Low L (Normal) Chloride 111 H (98-107) meq/L BUN 30 H (7-18) mg/dL Estimated GFR 55 L (>89) mL/min Calcium 7.8 L (8.5-10.1) mg/dL B-Natriuretic Peptide 314 H (0-100) pg/mL Total Protein 4.5 L D (6.4-8.2) g/dL Albumin 1.8 L D (3.4-5.0) g/dL Lipase 40 L (73-393) U/L MTS Gel Crossmatch 01/08/18 01/08/18 Range/Units 12:11 19:55 RBC (4.50-5.90) mil/mm3 Hgb 11.7 L D (13.0-17.0) gm/dL Hct 34.1 L (39.0-51.0) % MCV (80.0-100.0) fL MCH (27.0-34.0) pg RDW (11.6-17.2) % Plt Count (150-450) th/mm3 Neut % (Auto) (16.0-70.0) % Lymph % (Auto) (9.0-44.0) % Neut # (Auto) (1.8-7.7) th/mm3 Lymph # (Auto) (1.0-4.8) th/mm3 Band Neuts % (Manual) (0-6) % Lymphocytes % (Manual) (9-44) % Abs Neuts (Manual) (1.8-7.7) th/mm3 Toxic Granulation (None) Platelet Estimate (Normal) Chloride (98-107) meq/L BUN (7-18) mg/dL Estimated GFR (>89) mL/min Calcium (8.5-10.1) mg/dL B-Natriuretic Peptide (0-100) pg/mL Total Protein (6.4-8.2) g/dL Albumin (3.4-5.0) g/dL Lipase (73-393) U/L MTS Gel Crossmatch See Detail Short CBC 01/08/18 01/08/18 Range/Units 10:38 19:55 WBC 9.2 (4.0-11.0) th/mm3 Hgb 6.6 L* D 11.7 L D (13.0-17.0) gm/dL Hct 19.5 L* 34.1 L (39.0-51.0) % Plt Count 130 L (150-450) th/mm3 BMP 01/08/18 01/08/18 10:38 10:38 Sodium Cancelled 143 Potassium Cancelled 3.6 Chloride Cancelled 111 H Carbon Dioxide Cancelled 23.7 BUN Cancelled 30 H Creatinine Cancelled 1.25 Calcium Cancelled 7.8 L Liver Function 01/08/18 Range/Units 10:38 Total Bilirubin 0.6 (0.2-1.0) mg/dL AST 18 (15-37) U/L ALT 13 (12-78) U/L Alkaline Phosphatase 59 (45-117) U/L Albumin 1.8 L D (3.4-5.0) g/dL <Arturo Haley - 01/08/18 21:49> Abnormal lab results 01/08/18 01/08/18 01/08/18 Range/Units 10:38 10:38 10:38 RBC 1.81 L (4.50-5.90) mil/mm3 Hgb 6.6 L* D (13.0-17.0) gm/dL Hct 19.5 L* (39.0-51.0) % MCV 108.0 H (80.0-100.0) fL MCH 36.3 H (27.0-34.0) pg RDW 17.8 H (11.6-17.2) % Plt Count 130 L (150-450) th/mm3 Neut % (Auto) 84.2 H (16.0-70.0) % Lymph % (Auto) 5.3 L (9.0-44.0) % Neut # (Auto) 7.8 H (1.8-7.7) th/mm3 Lymph # (Auto) 0.5 L (1.0-4.8) th/mm3 Band Neuts % (Manual) 34 H (0-6) % Lymphocytes % (Manual) 6 L (9-44) % Abs Neuts (Manual) 8.0 H (1.8-7.7) th/mm3 Toxic Granulation 1+ H (None) Platelet Estimate Low L (Normal) Chloride 111 H (98-107) meq/L BUN 30 H (7-18) mg/dL Estimated GFR 55 L (>89) mL/min Calcium 7.8 L (8.5-10.1) mg/dL B-Natriuretic Peptide 314 H (0-100) pg/mL Total Protein 4.5 L D (6.4-8.2) g/dL Albumin 1.8 L D (3.4-5.0) g/dL Lipase 40 L (73-393) U/L MTS Gel Crossmatch 01/08/18 Range/Units 12:11 RBC (4.50-5.90) mil/mm3 Hgb (13.0-17.0) gm/dL Hct (39.0-51.0) % MCV (80.0-100.0) fL MCH (27.0-34.0) pg RDW (11.6-17.2) % Plt Count (150-450) th/mm3 Neut % (Auto) (16.0-70.0) % Lymph % (Auto) (9.0-44.0) % Neut # (Auto) (1.8-7.7) th/mm3 Lymph # (Auto) (1.0-4.8) th/mm3 Band Neuts % (Manual) (0-6) % Lymphocytes % (Manual) (9-44) % Abs Neuts (Manual) (1.8-7.7) th/mm3 Toxic Granulation (None) Platelet Estimate (Normal) Chloride (98-107) meq/L BUN (7-18) mg/dL Estimated GFR (>89) mL/min Calcium (8.5-10.1) mg/dL B-Natriuretic Peptide (0-100) pg/mL Total Protein (6.4-8.2) g/dL Albumin (3.4-5.0) g/dL Lipase (73-393) U/L MTS Gel Crossmatch See Detail Short CBC 01/08/18 Range/Units 10:38 WBC 9.2 (4.0-11.0) th/mm3 Hgb 6.6 L* D (13.0-17.0) gm/dL Hct 19.5 L* (39.0-51.0) % Plt Count 130 L (150-450) th/mm3 BMP 01/08/18 01/08/18 10:38 10:38 Sodium Cancelled 143 Potassium Cancelled 3.6 Chloride Cancelled 111 H Carbon Dioxide Cancelled 23.7 BUN Cancelled 30 H Creatinine Cancelled 1.25 Calcium Cancelled 7.8 L Liver Function 01/08/18 Range/Units 10:38 Total Bilirubin 0.6 (0.2-1.0) mg/dL AST 18 (15-37) U/L ALT 13 (12-78) U/L Alkaline Phosphatase 59 (45-117) U/L Albumin 1.8 L D (3.4-5.0) g/dL <Whitmore,Kunal S - 01/08/18 16:25> Physical Exam Vital signs: Vital Signs 01/08/18 00:00 01/08/18 02:08 01/08/18 04:00 Temperature 98.7 F 97.5 F L Pulse Rate 95 H 76 83 Respiratory Rate 18 17 18 Blood Pressure 91/55 L 106/76 90/51 L Pulse Oximetry 98 96 01/08/18 05:45 01/08/18 06:45 01/08/18 08:00 Temperature 97.9 F Pulse Rate 82 87 Respiratory Rate 15 Blood Pressure 97/54 L 103/58 L 102/57 L Pulse Oximetry 94 L 01/08/18 09:38 01/08/18 12:00 01/08/18 14:17 Temperature 97.8 F 97.6 F Pulse Rate 81 88 Respiratory Rate 16 14 Blood Pressure 103/61 102/56 L Pulse Oximetry 98 97 91 L 01/08/18 14:40 01/08/18 16:00 01/08/18 17:00 Temperature 97.7 F 98.0 F 98.0 F Pulse Rate 90 81 81 Respiratory Rate 14 16 16 Blood Pressure 98/54 L 106/56 L 106/56 L Pulse Oximetry 97 97 97 01/08/18 17:03 01/08/18 19:46 Temperature 98.0 F 97.4 F L Pulse Rate 81 87 Respiratory Rate 16 17 Blood Pressure 106/56 L 134/61 Pulse Oximetry 100 Intake & Output 01/08/18 01/08/18 01/09/18 06:59 18:59 06:59 Intake Total 850 / 850 950 / 950 400 / 400 Output Total 100 / 100 200 / 200 Balance 750 / 750 750 / 750 400 / 400 Weight 54.4 kg Intake: IV 850 / 850 550 / 550 Zosyn 3.375 GM Premix 50 ML @ 100 / 100 50 / 50 100 mls/hr IV.SIG Q6H RACHELL Rx#: [id number] NS Inj 500 ML @ Wide Open IV. 500 / 500 500 / 500 SIG BOLUS RACHELL Rx#:[id number] Vancomycin Inj 1,000 MG In NS 250 / 250 Inj 250 ML @ 250 mls/hr IV.SIG Q12H RACHELL Rx#:[id number] Intake (Blood Product) Amt 400 / 400 400 / 400 Rbc As-3 Leukoreduced Unit 400 / 400 [id number] Rbc As-3 Leukoreduced Unit 0 / 0 400 / 400 [id number] Output: Urine 100 / 100 200 / 200 Other: # Incontinent Voids 2 2 # Bowel Movements 0 Weight On Admission 54.4 kg <Arturo Haley - 01/08/18 21:49> Vital Signs 01/07/18 20:00 01/08/18 00:00 01/08/18 02:08 Temperature 97.6 F 98.7 F Pulse Rate 94 H 95 H 76 Respiratory Rate 17 Blood Pressure 95/55 L 91/55 L 106/76 Pulse Oximetry 96 98 01/08/18 04:00 01/08/18 05:45 01/08/18 06:45 Temperature 97.5 F L Pulse Rate 83 82 Respiratory Rate 18 Blood Pressure 90/51 L 97/54 L 103/58 L Pulse Oximetry 96 01/08/18 08:00 01/08/18 09:38 01/08/18 12:00 Temperature 97.9 F 97.8 F Pulse Rate 87 74 Respiratory Rate 15 16 Blood Pressure 102/57 L 103/61 Pulse Oximetry 94 L 98 97 01/08/18 14:17 Temperature 97.6 F Pulse Rate 88 Respiratory Rate 14 Blood Pressure 102/56 L Pulse Oximetry 91 L Intake & Output 01/07/18 01/08/18 01/08/18 18:59 06:59 18:59 Intake Total 1300 / 1300 850 / 850 500 / 500 Output Total 100 / 100 Balance 1300 / 1300 750 / 750 500 / 500 Weight 65.771 kg 54.4 kg Intake: IV 1300 / 1300 850 / 850 500 / 500 Zosyn 3.375 GM Premix 50 ML @ 50 / 50 100 / 100 100 mls/hr IV.SIG Q6H RACHELL Rx#: [id number] NS Inj 1,000 ML @ Wide Open IV. 1000 / 1000 SIG BOLUS ONE Rx#:[id number] NS Inj 500 ML @ Wide Open IV. 500 / 500 500 / 500 SIG BOLUS RACHELL Rx#:[id number] Vancomycin Inj 1,000 MG In NS 250 / 250 250 / 250 Inj 250 ML @ 250 mls/hr IV.SIG Q12H RACHELL Rx#:[id number] Intake (Blood Product) Amt 0 / 0 Rbc As-3 Leukoreduced Unit 0 / 0 [id number] Output: Urine 100 / 100 Other: # Incontinent Voids 2 Weight On Admission 54.4 kg <Kunal Whitmore - 01/08/18 16:25> - Constitutional no acute distress, thin <Kunal Whitmore - 01/08/18 16:25> - Routine HEENT Exam Head: Present: normocephalic, atraumatic <Kunal Whitmore - 01/08/18 16:25> - Routine Neck Exam Present: supple <Kunal Whitmore - 01/08/18 16:25> - Routine Respiratory Exam Present: CTA bilaterally. Absent: accessory muscle use, wheezes, crackles < Kunal Whitmore 01/08/18 16:25> - Routine Cardiovascular Exam Present: RRR, S1, S2. Absent: murmur <Kunal Whitmore 01/08/18 16:25> - Routine Abdominal Exam Present: soft. Absent: tenderness, distended <Kunal Whitmore 01/08/18 16:25 > - Routine Extremities Exam Absent: cyanosis, clubbing, edema <Kunal Whitmore 01/08/18 16:25> - Routine Skin Exam Present: ecchymosis (several scattered ecchymoses on the chest and extremities) <Kunal Whitmore - 01/08/18 16:25> - Routine Neurological Exam Present: alert (oriented to person and place) <Kunal Whitmore 01/08/18 16:25 > - Detailed Neurological Exam: Coma Scale Eye Opening: Spontaneous <Kunal Whitmore 01/08/18 16:25> Verbal Response: Oriented <Kunal Whitmore 01/08/18 16:25> Motor Response: Obey commands <Kunal Whitmore - 01/08/18 16:25> [place] Coma Scale Total: 15 <Kunal Whitmore 01/08/18 16:25> - Routine Psychiatric Exam Present: normal affect <Kunal Whitmore 01/08/18 16:25> - Urinary Catheter Management Straight Cath placed during this visit: no <Arturo Haley [place] 01/08/18 21:49> yes, but has since been removed by the nurse <Kunal Whitmore - 01/08/18 16:25> Reason for continuing: Not indwelling catheter <Kunal Whitmoer - 01/08/18 16: 25> Insertion date: 01/07/18 <Kunal Whitmore - 01/08/18 16:25> Insertion time: 11:30 <Kunal Whitmore - 01/08/18 16:25> Removal date: 01/07/18 <Kunal Whitmore - 01/08/18 16:25> Removal time: 11:35 <Kunal Whitmore - 01/08/18 16:25> Assessment and Plan - Assessment (1) Macrocytic anemia Code(s): D53.9 - Nutritional anemia, unspecified Status: Acute (2) Dehydration Code(s): E86.0 - Dehydration Status: Acute (3) Chronic kidney disease Code(s): N18.9 - Chronic kidney disease, unspecified Status: Acute (4) Hypothyroid Code(s): E03.9 - Hypothyroidism, unspecified Status: Chronic (5) Acute on chronic renal insufficiency Code(s): N28.9 - Disorder of kidney and ureter, unspecified; N18.9 - Chronic kidney disease, unspecified Status: Acute (6) Bandemia Code(s): D72.825 - Bandemia Status: Acute (7) Altered mental status Code(s): R41.82 - Altered mental status, unspecified Status: Acute <Arturo Haley - 01/08/18 21:49> (1) Macrocytic anemia Code(s): D53.9 - Nutritional anemia, unspecified Status: Acute Plan: Acute on chronic. Today Hgb 6.6 down from ~8.5 day prior. Possibly dilutional. Receives ProCrit as outpatient. B12 and folate levels normal. Transfuse 2 units PRBC Check H/H post transfusion Monitor Hgb daily Check reticulocyte count tomorrow AM (2) Dehydration Code(s): E86.0 - Dehydration Status: Acute Plan: Hydration status improved from admission Continue to trend BUN/creatinine and electrolyte levels. Encourage PO fluids (3) Chronic kidney disease Code(s): N18.9 - Chronic kidney disease, unspecified Status: Acute (4) Hypothyroid Code(s): E03.9 - Hypothyroidism, unspecified Status: Chronic Plan: Patient with history of hypothyroidism, well controlled on levothyroxine 25 mcg daily. Will continue home medication (5) Acute on chronic renal insufficiency Code(s): N28.9 - Disorder of kidney and ureter, unspecified; N18.9 - Chronic kidney disease, unspecified Status: Acute Plan: Improved with IV hydration Trend BMP (6) Bandemia Code(s): D72.825 - Bandemia Status: Acute Plan: Rule out of infection source started in the ED has been negative so far. Awaiting blood culture results from 01/07, NGTD Patient started on Vancomycin and Zosyn in the ED. We will continue antibiotic treatment. Plan to discontinue if blood cultures are negative x48 hours. Will continue to monitor CBC with differential for resolution of bandemia. (7) Altered mental status Code(s): R41.82 - Altered mental status, unspecified Status: Acute Plan: 79-year-old male presenting with gradual worsening of altered mental status. Somewhat improved today. Consider delirium due to infection vs. dehydration vs. malnutrition vs. dementia. CT head performed in ED showed no acute intracranial hemorrhage, mass, or infarction. Notable for stable atrophy specifically "diffuse volume loss greatest in the frontal regions". Chest x-ray showed "chronic senescent changes with stable left basilar atelectasis/scarring". EKG is within normal limits: Shows ventricularly paced rhythm. CBC showed white count of 9.4, with bandemia of 23% UA showed no signs of UTI. Ordered ammonia level, TSH, T4, RPR, vitamin B12 levels, folate levels, MMA levels. Ordered VBG. Encourage hydration Palliative care consulted for care coordination, patient would likely benefit from less aggressive measures such as being DNR, and would also be hospice candidate based on debility and gradual decline if family and patient would want these services <Kunal Whitmore S - 01/08/18 16:04> - Attending Attestation Pt. examined and case discussed with resident physicians. I have read the above note and agree with the assessment and plan as discussed with me. I was involved in all medical decision making for this patient. Arturo Haley MD <Arturo Haley - 01/08/18 21:49> <Kunal Whitmore S - Last Filed: 01/08/18 16:04> (4) Hypothyroid Qualifiers: Hypothyroidism type: unspecified Qualified Code(s): E03.9 - Hypothyroidism, unspecified <TeraArturo encarnacion - Last Filed: 01/08/18 21:49> (4) Hypothyroid Qualifiers: Hypothyroidism type: unspecified Qualified Code(s): E03.9 - Hypothyroidism, unspecified <Kunal Whitmore S - Last Filed: 01/08/18 16:04> (4) Hypothyroid Qualifiers: Hypothyroidism type: unspecified Qualified Code(s): E03.9 - Hypothyroidism, unspecified <Arturo Haley - Last Filed: 01/08/18 21:49> (4) Hypothyroid Qualifiers: Hypothyroidism type: unspecified Qualified Code(s): E03.9 - Hypothyroidism, unspecified
--- NOTE | 2018-01-08 16:48 | P.PNPAL ---
Reason for Visit Reason for visit: a. To assist with evaluation and management of symptoms including: AMS b. To assist medical decision maker(s) with: better understanding of current medical conditions; weighing benefits/burdens of medical treatment options; making medical treatment decisions. Subjective Subjective/Interval History: Patient seen today to follow-up on comfort, goals with family. He has remained stable overnight. H&H down to 6.6/19.5 today. no obvious signs of bleeding. peripheral blood smear pending. Ordered for 2 U RBC. BC no growth to date. S/p ST eval, rec mech soft diet, cody thin liquids. Reading Specialist evaluated-- rec 1500 min maldonado day, 1700 upper limit. Ensure w trays requested. ( albumin 1.8) . Chemistry unremarkable. Patient seen in room son at bedside. He is lethargic, sleeping. He does arouse to exam. He says" I am cold and tired and want to sleep."Son indicates that he is doing better in terms of a neurologic standpoint today more interactive and more oriented less confused. Not painful today per son. No dyspnea reported per son. Blood is transfusing at time of my exam. Still fatigued, weak and sleeping for most of the day. Review with son recent diagnostics, current clinical assessment, still no identifiable etiology to AMS. Could be underlying dementia process. Review peripheral blood smear pending. May consider consultation with patient known oncologist Dr. Ornelas. Goals remain aggressive at this time, son wishes to continue with available supportive treatment to try to treat what conditions may be treatable open to ongoing conversations as clinical course evolves. * * Patient reported to have 14+ hospitalizations in the past 1 year, general progressive decline. Of note may have been seen by Dr. Ornelas 11/01 for iron deficiency anemia. He did have an ED presentation from [facility] for reports of confusion and generalized weakness. Not drinking much fluid. Reported to have been transfused 2 units of blood that week due to hemoglobin 7.1. Also underwent EEG endoscopies and plan for endoscopy outpatient. Hemoglobin 8.9. His orientation at ED presentation was a and O x3 son reported it was better. He was ambulatory at that time with a rolling walker, alert and oriented x3. He was also hospitalized 07/09/17 for tachyarrhythmia. He apparently had SVT required cardioversion, also reported to have atrial fibrillation. Required multiple treatments with cardioversion, amiodarone. He had recently seen cardiology for possible ablation. 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 Ornelas. He apparently has had multiple admissions to [facility]. Advance Directives Advance Directives Date on File: 01/07/18 Health Care Surrogate Name and Number: Nikko Wren Documented care wishes:: Living will has standard verbiage detailing if terminal, end-stage or persistent vegetative conditions request no artificial measures. Names 2 deirdre Marcelo, Edward El as surrogates. Objective Vital Signs: Vital Signs 01/07/18 20:00 01/08/18 00:00 01/08/18 02:08 Temperature 97.6 F 98.7 F Pulse Rate 94 H 95 H 76 Respiratory Rate 16 18 17 Blood Pressure 95/55 L 91/55 L 106/76 Pulse Oximetry 96 98 01/08/18 04:00 01/08/18 05:45 01/08/18 06:45 Temperature 97.5 F L Pulse Rate 83 82 Respiratory Rate 18 Blood Pressure 90/51 L 97/54 L 103/58 L Pulse Oximetry 96 01/08/18 08:00 01/08/18 09:38 01/08/18 12:00 Temperature 97.9 F 97.8 F Pulse Rate 87 74 Respiratory Rate 15 16 Blood Pressure 102/57 L 103/61 Pulse Oximetry 94 L 98 97 01/08/18 14:17 Temperature 97.6 F Pulse Rate 88 Respiratory Rate 14 Blood Pressure 102/56 L Pulse Oximetry 91 L Intake & Output 01/07/18 01/08/18 01/08/18 18:59 06:59 18:59 Intake Total 1300 / 1300 850 / 850 500 / 500 Output Total 100 / 100 Balance 1300 / 1300 750 / 750 500 / 500 Weight 65.771 kg 54.4 kg Intake: IV 1300 / 1300 850 / 850 500 / 500 Zosyn 3.375 GM Premix 50 ML @ 50 / 50 100 / 100 100 mls/hr IV.SIG Q6H RACHELL Rx#: [id number] NS Inj 1,000 ML @ Wide Open IV. 1000 / 1000 SIG BOLUS ONE Rx#:[id number] NS Inj 500 ML @ Wide Open IV. 500 / 500 500 / 500 SIG BOLUS RACHELL Rx#:[id number] Vancomycin Inj 1,000 MG In NS 250 / 250 250 / 250 Inj 250 ML @ 250 mls/hr IV.SIG Q12H RACHELL Rx#:[id number] Intake (Blood Product) Amt 0 / 0 Rbc As-3 Leukoreduced Unit 0 / 0 [id number] Output: Urine 100 / 100 Other: # Incontinent Voids 2 Weight On Admission 54.4 kg Physical Exam: CONSTITUTIONAL/GENERAL: This is a frail, ill appearing elderly man TUBES/LINES/DRAINS:PIV upper extremity SKIN: No jaundice, rashes. 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 large area faint ecchymoses on forearms. Multiple ecchymosis to chest/torso. No wounds seen anteriorly. Skin warm dry. Pale. ENT: [facility]. Nose without bleeding or purulent drainage. Throat without visible erythema, exudates, masses, or lesions. MM dry. NECK: Trachea midline. Supple, nontender. No palpable thyroid enlargement or nodularity. CARDIOVASCULAR: Regular rate and rhythm without murmur. No JVD. Peripheral pulses symmetric. RESPIRATORY/CHEST: Symmetric, unlabored respirations. Clear to auscultation. Breath sounds equal bilaterally. GASTROINTESTINAL: Abdomen soft, mildly tender, nondistended. No hepato- splenomegaly, or palpable masses. Bowel sounds present. GENITOURINARY: Without palpable bladder distension. MUSCULOSKELETAL: Extremities without clubbing, cyanosis, or edema. No joint tenderness or effusion noted. No calf tenderness. very thin, muscle atrophy x4 NEUROLOGICAL: Lethargic, does not wish to participate in exam. Verbalizes wants to sleep. Does move all [address] [facility]. Follows simple commands. PSYCHIATRIC: No obvious anxiety/depression. no apparent hallucinations or other psychotic thought process. Diagnostic Tests Laboratory: Laboratory Results - last 72 hr 01/07/18 01/07/18 01/07/18 09:52 09:52 09:52 WBC 9.4 RBC 2.36 L Hgb 8.7 L Hct 25.8 L MCV 109.3 H MCH 36.9 H MCHC 33.7 RDW 17.7 H Plt Count 156 MPV 8.9 Prelim Diff (Auto) Slide review pending Neut % (Auto) 87.4 H Lymph % (Auto) 3.5 L Living[place] % (Auto) 8.9 H Eos % (Auto) 0.1 Baso % (Auto) 0.1 Neut # (Auto) 8.2 H Lymph # (Auto) 0.3 L [place] # (Auto) 0.8 Eos # (Auto) 0.0 Baso # (Auto) 0.0 WBC Differential Manual diff final Seg Neuts % (Manual) 72 H Band Neuts % (Manual) 23 H Lymphocytes % (Manual) 3 L Monocytes % (Manual) 1 Eosinophils % (Manual) Metamyelocytes % (Man) 1 Abs Neuts (Manual) 9.0 H Differential Comment . Toxic Granulation Platelet Estimate Normal Platelet Morphology Normal Smear Path Review PT 12.5 H INR 1.2 APTT 26.1 Sodium 139 Potassium 4.0 Chloride 105 Carbon Dioxide 22.8 Anion Gap 11 BUN 32 H Creatinine 1.59 H Estimated GFR 41 L Random Glucose 126 H Calcium 8.5 Total Bilirubin 0.7 AST 20 ALT 21 Alkaline Phosphatase 78 Ammonia Total Creatine Kinase Troponin I 0.05 B-Natriuretic Peptide Total Protein 6.0 L Albumin 2.5 L Lipase Vitamin B12 Folate TSH Urine Color Urine Clarity Urine pH Ur Specific [place] Urine Protein Urine Glucose (UA) Urine Ketones Urine Occult Blood Urine Nitrate Urine Bilirubin Urine Urobilinogen Ur Leukocyte Esterase Urine RBC Urine WBC Amorphous Sediment Urine Bacteria Hyaline Casts Granular Casts Urine Mucus Micro UA Comment Ur Microscopic Review Urine Culture Comments RPR Blood Type Antibody Screen MTS Gel Crossmatch 01/07/18 01/07/18 01/07/18 09:52 09:52 11:28 WBC RBC Hgb Hct MCV MCH MCHC RDW Plt Count MPV Prelim Diff (Auto) Neut % (Auto) Lymph % (Auto) Living[place] % (Auto) Eos % (Auto) Baso % (Auto) Neut # (Auto) Lymph # (Auto) Living[place] # (Auto) Eos # (Auto) Baso # (Auto) WBC Differential Seg Neuts % (Manual) Band Neuts % (Manual) Lymphocytes % (Manual) Monocytes % (Manual) Eosinophils % (Manual) Metamyelocytes % (Man) Abs Neuts (Manual) Differential Comment Toxic Granulation Platelet Estimate Platelet Morphology Smear Path Review PT INR APTT Sodium Potassium Chloride Carbon Dioxide Anion Gap BUN Creatinine Estimated GFR Random Glucose Calcium Total Bilirubin AST ALT Alkaline Phosphatase Ammonia Total Creatine Kinase 67 Troponin I B-Natriuretic Peptide 308 H Total Protein Albumin Lipase Vitamin B12 Folate TSH Urine Color Yellow Urine Clarity Hazy H Urine pH 5.0 Ur Specific [place] 1.013 Urine Protein Negative Urine Glucose (UA) Negative Urine Ketones Negative Urine Occult Blood Negative Urine Nitrate Negative Urine Bilirubin Negative Urine Urobilinogen Less than 2 Ur Leukocyte Esterase Negative Urine RBC Less than 1 Urine WBC Less than 1 Amorphous Sediment Occasional H Urine Bacteria Rare H Hyaline Casts 8 Granular Casts 1 Urine Mucus Few H Micro UA Comment Culture not ind Ur Microscopic Review Not Reportable Urine Culture Comments Culture not ind RPR Blood Type Antibody Screen MTS Gel Crossmatch 01/07/18 01/07/18 01/07/18 13:03 16:05 16:05 WBC RBC Hgb Hct MCV MCH MCHC RDW Plt Count MPV Prelim Diff (Auto) Neut % (Auto) Lymph % (Auto) Living[place] % (Auto) Eos % (Auto) Baso % (Auto) Neut # (Auto) Lymph # (Auto) Living[place] # (Auto) Eos # (Auto) Baso # (Auto) WBC Differential Seg Neuts % (Manual) Band Neuts % (Manual) Lymphocytes % (Manual) Monocytes % (Manual) Eosinophils % (Manual) Metamyelocytes % (Man) Abs Neuts (Manual) Differential Comment Toxic Granulation Platelet Estimate Platelet Morphology Smear Path Review PT INR APTT Sodium Potassium Chloride Carbon Dioxide Anion Gap BUN Creatinine Estimated GFR Random Glucose Calcium Total Bilirubin AST ALT Alkaline Phosphatase Ammonia 26 Total Creatine Kinase Troponin I 0.05 B-Natriuretic Peptide Total Protein Albumin Lipase Vitamin B12 Folate TSH 2.490 Urine Color Urine Clarity Urine pH Ur Specific [place] Urine Protein Urine Glucose (UA) Urine Ketones Urine Occult Blood Urine Nitrate Urine Bilirubin Urine Urobilinogen Ur Leukocyte Esterase Urine RBC Urine WBC Amorphous Sediment Urine Bacteria Hyaline Casts Granular Casts Urine Mucus Micro UA Comment Ur Microscopic Review Urine Culture Comments RPR Blood Type Antibody Screen MTS Gel Crossmatch 01/07/18 01/08/18 01/08/18 19:24 08:50 10:38 WBC 9.2 RBC 1.81 L Hgb 6.6 L* D Hct 19.5 L* MCV 108.0 H MCH 36.3 H MCHC 33.6 RDW 17.8 H Plt Count 130 L MPV 8.9 Prelim Diff (Auto) Slide review pending Neut % (Auto) 84.2 H Lymph % (Auto) 5.3 L Living[place] % (Auto) 7.0 Eos % (Auto) 3.4 Baso % (Auto) 0.1 Neut # (Auto) 7.8 H Lymph # (Auto) 0.5 L [place] # (Auto) 0.6 Eos # (Auto) 0.3 Baso # (Auto) 0.0 WBC Differential Manual diff final Seg Neuts % (Manual) 53 Band Neuts % (Manual) 34 H Lymphocytes % (Manual) 6 L Monocytes % (Manual) 4 Eosinophils % (Manual) 3 Metamyelocytes % (Man) Abs Neuts (Manual) 8.0 H Differential Comment . Toxic Granulation 1+ H Platelet Estimate Low L Platelet Morphology Normal Smear Path Review PT INR APTT Sodium Potassium Chloride Carbon Dioxide Anion Gap BUN Creatinine Estimated GFR Random Glucose Calcium Total Bilirubin AST ALT Alkaline Phosphatase Ammonia Total Creatine Kinase Troponin I B-Natriuretic Peptide Total Protein Albumin Lipase Vitamin B12 333 Folate 12.9 TSH Urine Color Urine Clarity Urine pH Ur Specific [place] Urine Protein Urine Glucose (UA) Urine Ketones Urine Occult Blood Urine Nitrate Urine Bilirubin Urine Urobilinogen Ur Leukocyte Esterase Urine RBC Urine WBC Amorphous Sediment Urine Bacteria Hyaline Casts Granular Casts Urine Mucus Micro UA Comment Ur Microscopic Review Urine Culture Comments RPR Nonreactive Blood Type Antibody Screen MTS Gel Crossmatch 01/08/18 01/08/18 01/08/18 10:38 10:38 10:38 WBC RBC Hgb Hct MCV MCH MCHC RDW Plt Count MPV Prelim Diff (Auto) Neut % (Auto) Lymph % (Auto) [place] % (Auto) Eos % (Auto) Baso % (Auto) Neut # (Auto) Lymph # (Auto) [place] # (Auto) Eos # (Auto) Baso # (Auto) WBC Differential Seg Neuts % (Manual) Band Neuts % (Manual) Lymphocytes % (Manual) Monocytes % (Manual) Eosinophils % (Manual) Metamyelocytes % (Man) Abs Neuts (Manual) Differential Comment Toxic Granulation Platelet Estimate Platelet Morphology Smear Path Review PT INR APTT Sodium Cancelled Potassium Cancelled Chloride Cancelled Carbon Dioxide Cancelled Anion Gap Cancelled BUN Cancelled Creatinine Cancelled Estimated GFR Cancelled Random Glucose Cancelled Calcium Cancelled Total Bilirubin AST ALT Alkaline Phosphatase Ammonia Total Creatine Kinase Troponin I B-Natriuretic Peptide 314 H Total Protein Albumin Lipase Cancelled Vitamin B12 Folate TSH Urine Color Urine Clarity Urine pH Ur Specific [place] Urine Protein Urine Glucose (UA) Urine Ketones Urine Occult Blood Urine Nitrate Urine Bilirubin Urine Urobilinogen Ur Leukocyte Esterase Urine RBC Urine WBC Amorphous Sediment Urine Bacteria Hyaline Casts Granular Casts Urine Mucus Micro UA Comment Ur Microscopic Review Urine Culture Comments RPR Blood Type Antibody Screen MTS Gel Crossmatch 01/08/18 01/08/18 10:38 12:11 WBC RBC Hgb Hct MCV MCH MCHC RDW Plt Count MPV Prelim Diff (Auto) Neut % (Auto) Lymph % (Auto) [place] % (Auto) Eos % (Auto) Baso % (Auto) Neut # (Auto) Lymph # (Auto) [place] # (Auto) Eos # (Auto) Baso # (Auto) WBC Differential Seg Neuts % (Manual) Band Neuts % (Manual) Lymphocytes % (Manual) Monocytes % (Manual) Eosinophils % (Manual) Metamyelocytes % (Man) Abs Neuts (Manual) Differential Comment Toxic Granulation Platelet Estimate Platelet Morphology Smear Path Review PT INR APTT Sodium 143 Potassium 3.6 Chloride 111 H Carbon Dioxide 23.7 Anion Gap 8 BUN 30 H Creatinine 1.25 Estimated GFR 55 L Random Glucose 81 Calcium 7.8 L Total Bilirubin 0.6 AST 18 ALT 13 Alkaline Phosphatase 59 Ammonia Total Creatine Kinase Troponin I B-Natriuretic Peptide Total Protein 4.5 L D Albumin 1.8 L D Lipase 40 L Vitamin B12 Folate TSH Urine Color Urine Clarity Urine pH Ur Specific [place] Urine Protein Urine Glucose (UA) Urine Ketones Urine Occult Blood Urine Nitrate Urine Bilirubin Urine Urobilinogen Ur Leukocyte Esterase Urine RBC Urine WBC Amorphous Sediment Urine Bacteria Hyaline Casts Granular Casts Urine Mucus Micro UA Comment Ur Microscopic Review Urine Culture Comments RPR Blood Type A Positive Antibody Screen Negative MTS Gel Crossmatch See Detail Result Diagrams: 01/08/18 10:38 01/08/18 10:38 Microbiology: Microbiology 01/07/18 09:52 Aerobic Blood Culture - Preliminary Blood - Peripheral No growth in 1 day Anaerobic Blood Culture - Preliminary No growth in 1 day 01/07/18 09:52 Aerobic Blood Culture - Preliminary Blood - Peripheral No growth in 1 day Anaerobic Blood Culture - Preliminary No growth in 1 day Imaging: Impressions Abdomen/Pelvis CT 01/07/18 09:46 CONCLUSION: 1. Atherosclerosis. 2. Body wall edema. 3. No evidence for bowel obstruction, free fluid or free air. Chest X-Ray 01/07/18 09:46 CONCLUSION: 1. Chronic senescent changes with stable left basilar atelectasis/scarring. Head CT 01/07/18 09:46 CONCLUSION: 1. Stable atrophy. 2. Right mastoid and middle ear opacification. . 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 Worked in [place] at [employer]. 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 Supported by 4 adult sons, 2 of whom live near him in [place]. Spiritual: Legal::Patient currently confused unable to make his own decisions. He does have advanced directives dated 2008 naming son Davian, son Edward El as surrogates. Ethical issues impacting care no ethical issues identified Important Contacts: Anthony Alas (Son) [phone] Davian Alas (Son) [phone] Prognosis: This patient was admitted for altered mental status. Thus far workup without clear etiology. He does have multiple chronic medical conditions which all seem to be fairly well controlled. He has had multiple hospitalizations in the past 10 months and generalized decline during this time. He does remain at risk for ongoing complications and setbacks related to advanced age, now debilitated status and ongoing medical issues. . Code Status: Full Code Plan: * Legal decision maker:Patient currently confused unable to make his own decisions. He does have advanced directives sedated 2008 naming son Davian, garfield El as surrogates. * Goals: Goals for now aggressive family would like to continue diagnostic workup to determine etiology of AMS and if this is in fact treatable. They are open to ongoing discussions as clinical course evolves. They understand he is high risk for potential complications and continued decline. * Consider consultation the patient known oncologist Dr. Ornelas. * CODE STATUS: Full code * SYMPTOMS: --AMS/confusion-onset 1-2 weeks ago. Worsens at night. Some remote history intact. Otherwise previously cognitively sharp. ? Etiology. CT brain negative. Labs without significant etiology identified, urine negative, blood culture pending. --Abdominal pain-patient poor historian. Reports vague abdominal pain. Abdominal exam essentially benign. CT abdomen negative. * Palliative care will continue to follow during hospital course as condition evolves, to assist patient/decision-maker with understanding of medical conditions, weighing benefits/burdens of treatment options, for clarification of goals of treatment. Additionally will assist with any symptoms of palliative concern Attestation Attestation: To help prompt me to consider important information that might be impacting today's encounter and assessment, information from prior notes written by myself or my colleagues may have been "brought forward" into today's note. My signature on this note, however, is an attestation that I personally performed the exam, history, and/or decision-making noted today, and, unless otherwise indicated, the interactions with patient, family, and staff as well as the review of records all occurred today. I also attest that the listed assessment and stated plan reflect my best clinical judgment today based on the combination of historical information, prior notes, and today's exam/ interactions. When time spent is documented, it refers only to time spent today by the signer, or if indicated, combined time spent today by collaborating physician/nurse practitioner.
[2018-01-08] MEDS: Piperacil/Tazo 2.25 GM Premix 50 ML IV.SIG SCH ×2 (17:20→21:13)
[2018-01-08 20:28] LABS: Hematocrit 34.1 % (39.0-51.0); Hemoglobin 11.7 gm/dL (13.0-17.0)
[2018-01-08] MEDS: Sodium Chloride 0.9% 2 ML Flush BID IV.FLUSH SCH (21:13)
[2018-01-09] MEDS: Vancomycin Inj 1,000 MG in Sodium Chlor 0.9% Inj 250 ML IV.SIG SCH (00:24)
[2018-01-09] MEDS: Piperacil/Tazo 2.25 GM Premix 50 ML IV.SIG SCH ×2 (03:34→09:53)
[2018-01-09 04:08] LABS: Baso % (Auto) 0.3 % (0.0-2.0); Eos # (Auto) 0.5 th/mm3 (0.0-0.4); Eos % (Auto) 4.4 % (0.0-4.0); Hematocrit 30.7 % (39.0-51.0); Hemoglobin 10.7 gm/dL (13.0-17.0); Lymph # (Auto) 0.7 th/mm3 (1.0-4.8); Lymph % (Auto) 6.5 % (9.0-44.0); Mean Corpuscular HGB Conc 34.9 % (32.0-36.0); Mean Corpuscular Hemoglobin 32.7 pg (27.0-34.0); Mean Corpuscular Volume 93.7 fL (80.0-100.0); Mono # (Auto) 0.6 th/mm3 (0.0-0.9); Mono % (Auto) 6.1 % (0.0-8.0); Neut # (Auto) 8.6 th/mm3 (1.8-7.7); Neut % (Auto) 82.7 % (16.0-70.0); Platelet Count 138 th/mm3 (150-450); Red Blood Count 3.28 mil/mm3 (4.50-5.90); Red Cell Distribution Width 24.9 % (11.6-17.2); Reticulocyte Percent 1.4 % (0.4-3.0); White Blood Count 10.4 th/mm3 (4.0-11.0)
[2018-01-09 04:11] LABS: Calcium 7.3 mg/dL (8.5-10.1); Carbon Dioxide 24.2 meq/L (21.0-32.0); Potassium 3.5 meq/L (3.5-5.1); Vancomycin,Random 26.9 Comment
[2018-01-09 04:27] LABS: Total Protein 4.7 g/dL (6.4-8.2)
[2018-01-09] MEDS: IMATINIB 400 MG PO SCH (09:52)
[2018-01-09] MEDS: Sodium Chloride 0.9% 2 ML Flush BID IV.FLUSH SCH ×2 (09:58→21:18)
[2018-01-09] MEDS: Erythromycin 0.5% Opth Oint 3.5 GM Tube EACH EYE SCH ×4 (09:59→21:18)
--- NOTE | 2018-01-09 12:33 | P.PNFP ---
Addendum entered and electronically signed by Eusebia Canales MD, R2 01/09/18 17 :00: Patient has acute encephalopathy and frailty w/protein calorie malnutrition. Original Note: Subjective Interval history: Son at bedside. States patient is doing better but does not want patient to go back to [facility] until he seems a little better. States he is more alert and talkative. Is currently sleeping in bed when I enter the room. Eating better, nausea has resolved. Dietary recommended chocolate ensure TID. <Eusebia Canales - 01/09/18 12:33> Results - Labs Result diagrams: 01/09/18 03:37 01/09/18 03:37 <Arturo Haley - 01/09/18 21:56> Abnormal lab results 01/09/18 01/09/18 Range/Units 03:37 03:37 RBC 3.28 L (4.50-5.90) mil/mm3 Hgb 10.7 L (13.0-17.0) gm/dL Hct 30.7 L (39.0-51.0) % RDW 24.9 H D (11.6-17.2) % Plt Count 138 L (150-450) th/mm3 Neut % (Auto) 82.7 H (16.0-70.0) % Lymph % (Auto) 6.5 L (9.0-44.0) % Eos % (Auto) 4.4 H (0.0-4.0) % Neut # (Auto) 8.6 H (1.8-7.7) th/mm3 Lymph # (Auto) 0.7 L (1.0-4.8) th/mm3 Eos # (Auto) 0.5 H (0.0-0.4) th/mm3 Chloride 112 H (98-107) meq/L BUN 30 H (7-18) mg/dL Estimated GFR 58 L (>89) mL/min Calcium 7.3 L* (8.5-10.1) mg/dL Total Protein 4.7 L (6.4-8.2) g/dL Short CBC 01/09/18 Range/Units 03:37 WBC 10.4 (4.0-11.0) th/mm3 Hgb 10.7 L (13.0-17.0) gm/dL Hct 30.7 L (39.0-51.0) % Plt Count 138 L (150-450) th/mm3 BMP 01/09/18 03:37 Sodium 144 Potassium 3.5 Chloride 112 H Carbon Dioxide 24.2 BUN 30 H Creatinine 1.19 Calcium 7.3 L* <Arturo Haley - 01/09/18 21:56> Abnormal lab results 01/08/18 01/08/18 01/08/18 Range/Units 10:38 12:11 19:55 RBC (4.50-5.90) mil/mm3 Hgb 11.7 L D (13.0-17.0) gm/dL Hct 34.1 L (39.0-51.0) % RDW (11.6-17.2) % Plt Count (150-450) th/mm3 Neut % (Auto) (16.0-70.0) % Lymph % (Auto) (9.0-44.0) % Eos % (Auto) (0.0-4.0) % Neut # (Auto) (1.8-7.7) th/mm3 Lymph # (Auto) (1.0-4.8) th/mm3 Eos # (Auto) (0.0-0.4) th/mm3 Band Neuts % (Manual) 34 H (0-6) % Lymphocytes % (Manual) 6 L (9-44) % Abs Neuts (Manual) 8.0 H (1.8-7.7) th/mm3 Toxic Granulation 1+ H (None) Platelet Estimate Low L (Normal) Chloride (98-107) meq/L BUN (7-18) mg/dL Estimated GFR (>89) mL/min Calcium (8.5-10.1) mg/dL Total Protein (6.4-8.2) g/dL MTS Gel Crossmatch See Detail 01/09/18 01/09/18 Range/Units 03:37 03:37 RBC 3.28 L (4.50-5.90) mil/mm3 Hgb 10.7 L (13.0-17.0) gm/dL Hct 30.7 L (39.0-51.0) % RDW 24.9 H D (11.6-17.2) % Plt Count 138 L (150-450) th/mm3 Neut % (Auto) 82.7 H (16.0-70.0) % Lymph % (Auto) 6.5 L (9.0-44.0) % Eos % (Auto) 4.4 H (0.0-4.0) % Neut # (Auto) 8.6 H (1.8-7.7) th/mm3 Lymph # (Auto) 0.7 L (1.0-4.8) th/mm3 Eos # (Auto) 0.5 H (0.0-0.4) th/mm3 Band Neuts % (Manual) (0-6) % Lymphocytes % (Manual) (9-44) % Abs Neuts (Manual) (1.8-7.7) th/mm3 Toxic Granulation (None) Platelet Estimate (Normal) Chloride 112 H (98-107) meq/L BUN 30 H (7-18) mg/dL Estimated GFR 58 L (>89) mL/min Calcium 7.3 L* (8.5-10.1) mg/dL Total Protein 4.7 L (6.4-8.2) g/dL MTS Gel Crossmatch Short CBC 01/08/18 01/09/18 Range/Units 19:55 03:37 WBC 10.4 (4.0-11.0) th/mm3 Hgb 11.7 L D 10.7 L (13.0-17.0) gm/dL Hct 34.1 L 30.7 L (39.0-51.0) % Plt Count 138 L (150-450) th/mm3 BMP 01/09/18 03:37 Sodium 144 Potassium 3.5 Chloride 112 H Carbon Dioxide 24.2 BUN 30 H Creatinine 1.19 Calcium 7.3 L* <Eusebia Canales N - 01/09/18 12:33> Physical Exam Vital signs: Vital Signs 01/09/18 00:00 01/09/18 02:02 01/09/18 03:36 Temperature 98.5 F 98.0 F Pulse Rate 78 79 Respiratory Rate 17 16 16 Blood Pressure 118/63 115/58 L Pulse Oximetry 98 96 01/09/18 04:00 01/09/18 08:00 01/09/18 08:55 Temperature 97.8 F Pulse Rate 69 68 Respiratory Rate 16 Blood Pressure 109/58 L Pulse Oximetry 98 98 01/09/18 09:00 01/09/18 12:00 01/09/18 16:00 Temperature 97.6 F 97.9 F Pulse Rate 81 76 69 Respiratory Rate 16 16 Blood Pressure 106/57 L 118/62 Pulse Oximetry 98 99 01/09/18 20:00 Temperature 97.7 F Pulse Rate Respiratory Rate 18 Blood Pressure 141/87 H Pulse Oximetry 98 Intake & Output 01/09/18 01/09/18 01/10/18 06:59 18:59 06:59 Intake Total 1000 / 1000 Output Total 300 / 300 400 / 400 Balance 700 / 700 -400 / -400 Weight 55.6 kg Intake: IV 600 / 600 Zosyn 2.25 GM Premix 50 ML @ 100 / 100 100 mls/hr IV.SIG Q6H RACHELL Rx#: [id number] NS Inj 250 ML @ 15 mls/hr IV. 250 / 250 SIG ONCE RACHELL Rx#:[id number] Vancomycin Inj 1,000 MG In NS 250 / 250 Inj 250 ML @ 250 mls/hr IV.SIG Q12H RACHELL Rx#:[id number] Intake (Blood Product) Amt 400 / 400 Rbc As-3 Leukoreduced Unit 400 / 400 [id number] Output: Urine 300 / 300 400 / 400 Other: # Voids 1 1 # Incontinent Voids 1 1 # Bowel Movements 0 <Arturo Haley - 01/09/18 21:56> Vital Signs 01/08/18 14:17 01/08/18 14:40 01/08/18 16:00 Temperature 97.6 F 97.7 F 98.0 F Pulse Rate 88 90 81 Respiratory Rate 14 14 16 Blood Pressure 102/56 L 98/54 L 106/56 L Pulse Oximetry 91 L 97 97 01/08/18 17:00 01/08/18 17:03 01/08/18 19:46 Temperature 98.0 F 98.0 F 97.4 F L Pulse Rate 81 81 87 Respiratory Rate 16 16 17 Blood Pressure 106/56 L 106/56 L 134/61 Pulse Oximetry 97 100 01/08/18 20:00 01/09/18 00:00 01/09/18 02:02 Temperature 98.5 F Pulse Rate 81 78 Respiratory Rate 17 16 Blood Pressure 118/63 Pulse Oximetry 98 01/09/18 03:36 01/09/18 04:00 01/09/18 08:00 Temperature 98.0 F 97.8 F Pulse Rate 79 69 73 Respiratory Rate 16 16 Blood Pressure 115/58 L 109/58 L Pulse Oximetry 96 98 01/09/18 08:55 Temperature Pulse Rate Respiratory Rate Blood Pressure Pulse Oximetry 98 Intake & Output 01/08/18 01/09/18 01/09/18 18:59 06:59 18:59 Intake Total 950 / 950 1000 / 1000 Output Total 200 / 200 300 / 300 200 / 200 Balance 750 / 750 700 / 700 -200 / -200 Weight 55.6 kg Intake: IV 550 / 550 600 / 600 Zosyn 2.25 GM Premix 50 ML @ 100 / 100 100 mls/hr IV.SIG Q6H RACHELL Rx#: [id number] Zosyn 3.375 GM Premix 50 ML @ 50 / 50 100 mls/hr IV.SIG Q6H RACHELL Rx#: [id number] NS Inj 250 ML @ 15 mls/hr IV. 250 / 250 SIG ONCE RACHELL Rx#:[id number] NS Inj 500 ML @ Wide Open IV. 500 / 500 SIG BOLUS RACHELL Rx#:[id number] Vancomycin Inj 1,000 MG In NS 250 / 250 Inj 250 ML @ 250 mls/hr IV.SIG Q12H RACHELL Rx#:[id number] Intake (Blood Product) Amt 400 / 400 400 / 400 Rbc As-3 Leukoreduced Unit 400 / 400 [id number] Rbc As-3 Leukoreduced Unit 0 / 0 400 / 400 [id number] Output: Urine 200 / 200 300 / 300 200 / 200 Other: # Voids 1 # Incontinent Voids 2 1 # Bowel Movements 0 <Eusebia Canales N - 01/09/18 12:33> Narrative: General: Elderly and frail appearing male lying in bed, sleeping. Improved complexion. HEENT: Multiple hypertrophic, plaque-like lesions 2-3 cm over the temples, scalp, and side of his face. Sleeping in bed. Skin: Multiple areas of ecchymosis on the arms and upper extremities. CV: Regular rate and rhythm, faint systolic murmur. Respiratory: Breath sounds distant anteriorly, no obvious crackles or rhonchi GI: No tenderness or guarding MSK: No obvious cyanosis or edema Neuro: No focal deficits <Eusebia Canales - 01/09/18 12:33> - Urinary Catheter Management Straight Cath placed during this visit: no <Arturo Haley - 01/09/18 21:56> yes, but has since been removed by the nurse <Eusebia Canales 01/09/18 12:33> Reason for continuing: Not indwelling catheter <Eusebia Canales - 01/09/18 12:33 > Insertion date: 01/07/18 <Eusebia Canales 01/09/18 12:33> Insertion time: 11:30 <Eusebia Canales - 01/09/18 12:33> Removal date: 01/07/18 <Eusebia Canales - 01/09/18 12:33> Removal time: 11:35 <Eusebia Canales 01/09/18 12:33> Assessment and Plan - Assessment (1) Altered mental status Code(s): R41.82 - Altered mental status, unspecified Status: Acute (2) Frailty Code(s): R54 - Age-related physical debility Status: Acute (3) Macrocytic anemia Code(s): D53.9 - Nutritional anemia, unspecified Status: Acute (4) Hypothyroid Code(s): E03.9 - Hypothyroidism, unspecified Status: Chronic (5) Acute on chronic renal insufficiency Code(s): N28.9 - Disorder of kidney and ureter, unspecified; N18.9 - Chronic kidney disease, unspecified Status: Acute (6) Bandemia Code(s): D72.825 - Bandemia Status: Acute (7) Chronic kidney disease Code(s): N18.9 - Chronic kidney disease, unspecified Status: Acute (8) Dehydration Code(s): E86.0 - Dehydration Status: Acute (9) Nutrition, metabolism, and development symptoms Code(s): R63.8 - Other symptoms and signs concerning food and fluid intake Status: Acute (10) DVT prophylaxis Status: Acute <Arturo Haley - 01/09/18 21:56> (1) Altered mental status Code(s): R41.82 - Altered mental status, unspecified Status: Acute Plan: Improved. 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 Will need further evaluation outpatient. (2) Frailty Code(s): R54 - Age-related physical debility Status: Acute Plan: Long-term prognosis likely poor. Palliative consulted. Family would like aggressive treatment at this time. Dietary recommends chocolate ensure TID, which will be provided in addition to meals. (3) Macrocytic anemia Code(s): D53.9 - Nutritional anemia, unspecified Status: Acute Plan: Acute on chronic. Hx of transfusions in the past. Receives ProCrit as outpatient. B12 and folate levels normal. Transfuse 2 units PRBC Hgb today 10.7 from 11.7 post transfusion Monitor Hgb daily Need to con't hematology outpatient f/u (4) Hypothyroid Code(s): E03.9 - Hypothyroidism, unspecified Status: Chronic Plan: Patient with history of hypothyroidism, well controlled on levothyroxine 25 mcg daily. Will continue home medication (5) Acute on chronic renal insufficiency Code(s): N28.9 - Disorder of kidney and ureter, unspecified; N18.9 - Chronic kidney disease, unspecified Status: Acute Plan: Resolved. (6) Bandemia Code(s): D72.825 - Bandemia Status: Acute Plan: Rule out infection source, has been negative so far. Patient started on Vancomycin and Zosyn. Blood cx NG in 2 days. DC abx today Plan to discontinue if blood cultures are negative x48 hours. 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 (7) Chronic kidney disease Code(s): N18.9 - Chronic kidney disease, unspecified Status: Acute Plan: Stable, see above plan. (8) Dehydration Code(s): E86.0 - Dehydration Status: Acute Plan: Resolved. (9) Nutrition, metabolism, and development symptoms Code(s): R63.8 - Other symptoms and signs concerning food and fluid intake Status: Acute Plan: Fluids: None at this time. Electrolytes: No notable electrolyte abnormalities at this time. Nutrition: Mech soft, thin liquids, chocolate ensure shakes. (10) DVT prophylaxis Status: Acute Plan: SCDs only. <AllyEusebia N - 01/09/18 12:18> - Attending Attestation Pt. examined independently by me and case discussed with resident physicians. I have read the above note and agree with the assessment and plan as discussed with me. I was involved in all medical decision making for this patient. Arturo Haley MD <Tera,Arturo - 01/09/18 21:56> <Eusebia Canales N - Last Filed: 01/09/18 12:18> (4) Hypothyroid Qualifiers: Hypothyroidism type: unspecified Qualified Code(s): E03.9 - Hypothyroidism, unspecified <Arturo Haley - Last Filed: 01/09/18 21:56> (4) Hypothyroid Qualifiers: Hypothyroidism type: unspecified Qualified Code(s): E03.9 - Hypothyroidism, unspecified <Eusebia Canales N - Last Filed: 01/09/18 12:18> (4) Hypothyroid Qualifiers: Hypothyroidism type: unspecified Qualified Code(s): E03.9 - Hypothyroidism, unspecified <Arturo Haley - Last Filed: 01/09/18 21:56> (4) Hypothyroid Qualifiers: Hypothyroidism type: unspecified Qualified Code(s): E03.9 - Hypothyroidism, unspecified
--- NOTE | 2018-01-09 17:04 | P.PNPAL ---
Reason for Visit Reason for visit: a. To assist with evaluation and management of symptoms including: AMS b. To assist medical decision maker(s) with: better understanding of current medical conditions; weighing benefits/burdens of medical treatment options; making medical treatment decisions. Subjective Subjective/Interval History: Follow-up medically necessary for symptom management. Patient seen and examined in the presence of his son Davian ([facility]). Patient is side of hearing. Denies pain at this time. Patient repeatedly asking for a "grape like juice he has had before at the [facility]" from his son. He is alert and oriented to self, place. Unable to assess patient if he has insight to his medical condition due to hard of hearing. Patient angry that, " everybody keeps asking him where he is ". Cooperative with examination. Family states that patient is improving neurologically. Updated them on today's hemoglobin result. Laboratory workup today revealing WBC 10.4, hemoglobin 10.7, hematocrit 30.7, platelet count 138. Goals remain aggressive at this time. Family reporting that patient his been more alert and conversant. Patient son Davian states that he has been notified by 1 of the family physicians that they will be contacting Dr. Ornelas to find out if patient can have an Epoetin shot prior to discharge. He would like hematology/oncology input prior to discharging patient. * * Patient reported to have 14+ hospitalizations in the past 1 year, general progressive decline. Of note may have been seen by Dr. Ornelas 11/01 for iron deficiency anemia. He did have an ED presentation from [facility] for reports of confusion and generalized weakness. Not drinking much fluid. Reported to have been transfused 2 units of blood that week due to hemoglobin 7.1. Also underwent EEG endoscopies and plan for endoscopy outpatient. Hemoglobin 8.9. His orientation at ED presentation was a and O x3 son reported it was better. He was ambulatory at that time with a rolling walker, alert and oriented x3. He was also hospitalized 07/09/17 for tachyarrhythmia. He apparently had SVT required cardioversion, also reported to have atrial fibrillation. Required multiple treatments with cardioversion, amiodarone. He had recently seen cardiology for possible ablation. 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 Ornelas. He apparently has had multiple admissions to [facility]. Family/Friend Interactions: See interval note. . Advance Directives Health Care Surrogate: Copy in medical record Advance Directives Date on File: 01/07/18 Health Care Surrogate Name and Number: Nikko Wren Documented care wishes:: Living will has standard verbiage detailing if terminal, end-stage or persistent vegetative conditions request no artificial measures. Names 2 Edward Wren as surrogates. Objective Vital Signs: Vital Signs 01/08/18 17:00 01/08/18 17:03 01/08/18 19:46 Temperature 98.0 F 98.0 F 97.4 F L Pulse Rate 81 81 87 Respiratory Rate 16 16 17 Blood Pressure 106/56 L 106/56 L 134/61 Pulse Oximetry 97 100 01/08/18 20:00 01/09/18 00:00 01/09/18 02:02 Temperature 98.5 F Pulse Rate 81 78 Respiratory Rate 17 16 Blood Pressure 118/63 Pulse Oximetry 98 01/09/18 03:36 01/09/18 04:00 01/09/18 08:00 Temperature 98.0 F 97.8 F Pulse Rate 79 69 68 Respiratory Rate 16 16 Blood Pressure 115/58 L 109/58 L Pulse Oximetry 96 98 01/09/18 08:55 01/09/18 12:00 Temperature 97.6 F Pulse Rate 76 Respiratory Rate 16 Blood Pressure 106/57 L Pulse Oximetry 98 98 Intake & Output 01/08/18 01/09/18 01/09/18 18:59 06:59 18:59 Intake Total 950 / 950 1000 / 1000 Output Total 200 / 200 300 / 300 200 / 200 Balance 750 / 750 700 / 700 -200 / -200 Weight 55.6 kg Intake: IV 550 / 550 600 / 600 Zosyn 2.25 GM Premix 50 ML @ 100 / 100 100 mls/hr IV.SIG Q6H RACHELL Rx#: [id number] Zosyn 3.375 GM Premix 50 ML @ 50 / 50 100 mls/hr IV.SIG Q6H RACHELL Rx#: [id number] NS Inj 250 ML @ 15 mls/hr IV. 250 / 250 SIG ONCE RACHELL Rx#:[id number] NS Inj 500 ML @ Wide Open IV. 500 / 500 SIG BOLUS RACHELL Rx#:[id number] Vancomycin Inj 1,000 MG In NS 250 / 250 Inj 250 ML @ 250 mls/hr IV.SIG Q12H RACHELL Rx#:[id number] Intake (Blood Product) Amt 400 / 400 400 / 400 Rbc As-3 Leukoreduced Unit 400 / 400 [id number] Rbc As-3 Leukoreduced Unit 0 / 0 400 / 400 [id number] Output: Urine 200 / 200 300 / 300 200 / 200 Other: # Voids 1 # Incontinent Voids 2 1 # Bowel Movements 0 Physical Exam: CONSTITUTIONAL/GENERAL: This is a frail, chronically ill looking elderly man TUBES/LINES/DRAINS:PIV upper extremity SKIN: No jaundice. 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 large area faint ecchymoses on forearms. Multiple ecchymosis to chest/ torso. No wounds seen anteriorly. Skin warm dry. ENT: NINILCHIK. Nose without bleeding or purulent drainage. Dry oral mucosa NECK: Trachea midline. Supple, nontender. CARDIOVASCULAR: Regular rate and rhythm without murmur. No JVD. Peripheral pulses symmetric. No edema RESPIRATORY/CHEST: Symmetric, unlabored respirations. Diminished breath sounds bilateral. GASTROINTESTINAL: Abdomen soft, mildly tender, nondistended. No guarding. Active bowel sounds GENITOURINARY: Without palpable bladder distension. MUSCULOSKELETAL: Extremities without clubbing, cyanosis, or edema. No joint tenderness or effusion noted. No calf tenderness. very thin, muscle atrophy x4 NEUROLOGICAL: Awake, alert and very conversant. NINILCHIK. Oriented to self, place. Able to follow simple commands. PSYCHIATRIC: No obvious anxiety/depression. no apparent hallucinations or other psychotic thought process. Diagnostic Tests Laboratory: Laboratory Results - last 72 hr 01/07/18 01/07/18 01/07/18 09:52 09:52 09:52 WBC 9.4 RBC 2.36 L Hgb 8.7 L Hct 25.8 L MCV 109.3 H MCH 36.9 H MCHC 33.7 RDW 17.7 H Plt Count 156 MPV 8.9 Prelim Diff (Auto) Slide review pending Neut % (Auto) 87.4 H Lymph % (Auto) 3.5 L [place] % (Auto) 8.9 H Eos % (Auto) 0.1 Baso % (Auto) 0.1 Neut # (Auto) 8.2 H Lymph # (Auto) 0.3 L [place] # (Auto) 0.8 Eos # (Auto) 0.0 Baso # (Auto) 0.0 WBC Differential Manual diff final Seg Neuts % (Manual) 72 H Band Neuts % (Manual) 23 H Lymphocytes % (Manual) 3 L Monocytes % (Manual) 1 Eosinophils % (Manual) Metamyelocytes % (Man) 1 Abs Neuts (Manual) 9.0 H Differential Comment . Toxic Granulation Platelet Estimate Normal Platelet Morphology Normal Smear Path Review Retic Count Absolute Retic PT 12.5 H INR 1.2 APTT 26.1 Sodium 139 Potassium 4.0 Chloride 105 Carbon Dioxide 22.8 Anion Gap 11 BUN 32 H Creatinine 1.59 H Estimated GFR 41 L Random Glucose 126 H Calcium 8.5 Prot Corrected Calcium Total Bilirubin 0.7 AST 20 ALT 21 Alkaline Phosphatase 78 Ammonia Total Creatine Kinase Troponin I 0.05 B-Natriuretic Peptide Total Protein 6.0 L Albumin 2.5 L Lipase Vitamin B12 Folate TSH Urine Color Urine Clarity Urine pH Ur Specific [place] Urine Protein Urine Glucose (UA) Urine Ketones Urine Occult Blood Urine Nitrate Urine Bilirubin Urine Urobilinogen Ur Leukocyte Esterase Urine RBC Urine WBC Amorphous Sediment Urine Bacteria Hyaline Casts Granular Casts Urine Mucus Micro UA Comment Ur Microscopic Review Urine Culture Comments Random Vancomycin RPR Blood Type Antibody Screen MTS Gel Crossmatch 01/07/18 01/07/18 01/07/18 09:52 09:52 11:28 WBC RBC Hgb Hct MCV MCH MCHC RDW Plt Count MPV Prelim Diff (Auto) Neut % (Auto) Lymph % (Auto) [place] % (Auto) Eos % (Auto) Baso % (Auto) Neut # (Auto) Lymph # (Auto) [place] # (Auto) Eos # (Auto) Baso # (Auto) WBC Differential Seg Neuts % (Manual) Band Neuts % (Manual) Lymphocytes % (Manual) Monocytes % (Manual) Eosinophils % (Manual) Metamyelocytes % (Man) Abs Neuts (Manual) Differential Comment Toxic Granulation Platelet Estimate Platelet Morphology Smear Path Review Retic Count Absolute Retic PT INR APTT Sodium Potassium Chloride Carbon Dioxide Anion Gap BUN Creatinine Estimated GFR Random Glucose Calcium Prot Corrected Calcium Total Bilirubin AST ALT Alkaline Phosphatase Ammonia Total Creatine Kinase 67 Troponin I B-Natriuretic Peptide 308 H Total Protein Albumin Lipase Vitamin B12 Folate TSH Urine Color Yellow Urine Clarity Hazy H Urine pH 5.0 Ur Specific [place] 1.013 Urine Protein Negative Urine Glucose (UA) Negative Urine Ketones Negative Urine Occult Blood Negative Urine Nitrate Negative Urine Bilirubin Negative Urine Urobilinogen Less than 2 Ur Leukocyte Esterase Negative Urine RBC Less than 1 Urine WBC Less than 1 Amorphous Sediment Occasional H Urine Bacteria Rare H Hyaline Casts 8 Granular Casts 1 Urine Mucus Few H Micro UA Comment Culture not ind Ur Microscopic Review Not Reportable Urine Culture Comments Culture not ind Random Vancomycin RPR Blood Type Antibody Screen MTS Gel Crossmatch 01/07/18 01/07/18 01/07/18 13:03 16:05 16:05 WBC RBC Hgb Hct MCV MCH MCHC RDW Plt Count MPV Prelim Diff (Auto) Neut % (Auto) Lymph % (Auto) [place] % (Auto) Eos % (Auto) Baso % (Auto) Neut # (Auto) Lymph # (Auto) [place] # (Auto) Eos # (Auto) Baso # (Auto) WBC Differential Seg Neuts % (Manual) Band Neuts % (Manual) Lymphocytes % (Manual) Monocytes % (Manual) Eosinophils % (Manual) Metamyelocytes % (Man) Abs Neuts (Manual) Differential Comment Toxic Granulation Platelet Estimate Platelet Morphology Smear Path Review Retic Count Absolute Retic PT INR APTT Sodium Potassium Chloride Carbon Dioxide Anion Gap BUN Creatinine Estimated GFR Random Glucose Calcium Prot Corrected Calcium Total Bilirubin AST ALT Alkaline Phosphatase Ammonia 26 Total Creatine Kinase Troponin I 0.05 B-Natriuretic Peptide Total Protein Albumin Lipase Vitamin B12 Folate TSH 2.490 Urine Color Urine Clarity Urine pH Ur Specific [place] Urine Protein Urine Glucose (UA) Urine Ketones Urine Occult Blood Urine Nitrate Urine Bilirubin Urine Urobilinogen Ur Leukocyte Esterase Urine RBC Urine WBC Amorphous Sediment Urine Bacteria Hyaline Casts Granular Casts Urine Mucus Micro UA Comment Ur Microscopic Review Urine Culture Comments Random Vancomycin RPR Blood Type Antibody Screen MTS Gel Crossmatch 01/07/18 01/08/18 01/08/18 19:24 08:50 10:38 WBC 9.2 RBC 1.81 L Hgb 6.6 L* D Hct 19.5 L* MCV 108.0 H MCH 36.3 H MCHC 33.6 RDW 17.8 H Plt Count 130 L MPV 8.9 Prelim Diff (Auto) Slide review pending Neut % (Auto) 84.2 H Lymph % (Auto) 5.3 L [place] % (Auto) 7.0 Eos % (Auto) 3.4 Baso % (Auto) 0.1 Neut # (Auto) 7.8 H Lymph # (Auto) 0.5 L [place] # (Auto) 0.6 Eos # (Auto) 0.3 Baso # (Auto) 0.0 WBC Differential Manual diff final Seg Neuts % (Manual) 53 Band Neuts % (Manual) 34 H Lymphocytes % (Manual) 6 L Monocytes % (Manual) 4 Eosinophils % (Manual) 3 Metamyelocytes % (Man) Abs Neuts (Manual) 8.0 H Differential Comment . Toxic Granulation 1+ H Platelet Estimate Low L Platelet Morphology Normal Smear Path Review Retic Count Absolute Retic PT INR APTT Sodium Potassium Chloride Carbon Dioxide Anion Gap BUN Creatinine Estimated GFR Random Glucose Calcium Prot Corrected Calcium Total Bilirubin AST ALT Alkaline Phosphatase Ammonia Total Creatine Kinase Troponin I B-Natriuretic Peptide Total Protein Albumin Lipase Vitamin B12 333 Folate 12.9 TSH Urine Color Urine Clarity Urine pH Ur Specific [place] Urine Protein Urine Glucose (UA) Urine Ketones Urine Occult Blood Urine Nitrate Urine Bilirubin Urine Urobilinogen Ur Leukocyte Esterase Urine RBC Urine WBC Amorphous Sediment Urine Bacteria Hyaline Casts Granular Casts Urine Mucus Micro UA Comment Ur Microscopic Review Urine Culture Comments Random Vancomycin RPR Nonreactive Blood Type Antibody Screen MTS Gel Crossmatch 01/08/18 01/08/18 01/08/18 10:38 10:38 10:38 WBC RBC Hgb Hct MCV MCH MCHC RDW Plt Count MPV Prelim Diff (Auto) Neut % (Auto) Lymph % (Auto) [place] % (Auto) Eos % (Auto) Baso % (Auto) Neut # (Auto) Lymph # (Auto) [place] # (Auto) Eos # (Auto) Baso # (Auto) WBC Differential Seg Neuts % (Manual) Band Neuts % (Manual) Lymphocytes % (Manual) Monocytes % (Manual) Eosinophils % (Manual) Metamyelocytes % (Man) Abs Neuts (Manual) Differential Comment Toxic Granulation Platelet Estimate Platelet Morphology Smear Path Review Retic Count Absolute Retic PT INR APTT Sodium Cancelled Potassium Cancelled Chloride Cancelled Carbon Dioxide Cancelled Anion Gap Cancelled BUN Cancelled Creatinine Cancelled Estimated GFR Cancelled Random Glucose Cancelled Calcium Cancelled Prot Corrected Calcium Total Bilirubin AST ALT Alkaline Phosphatase Ammonia Total Creatine Kinase Troponin I B-Natriuretic Peptide 314 H Total Protein Albumin Lipase Cancelled Vitamin B12 Folate TSH Urine Color Urine Clarity Urine pH Ur Specific [place] Urine Protein Urine Glucose (UA) Urine Ketones Urine Occult Blood Urine Nitrate Urine Bilirubin Urine Urobilinogen Ur Leukocyte Esterase Urine RBC Urine WBC Amorphous Sediment Urine Bacteria Hyaline Casts Granular Casts Urine Mucus Micro UA Comment Ur Microscopic Review Urine Culture Comments Random Vancomycin RPR Blood Type Antibody Screen MTS Gel Crossmatch 01/08/18 01/08/18 01/08/18 10:38 12:11 19:55 WBC RBC Hgb 11.7 L D Hct 34.1 L MCV MCH MCHC RDW Plt Count MPV Prelim Diff (Auto) Neut % (Auto) Lymph % (Auto) [place] % (Auto) Eos % (Auto) Baso % (Auto) Neut # (Auto) Lymph # (Auto) [place] # (Auto) Eos # (Auto) Baso # (Auto) WBC Differential Seg Neuts % (Manual) Band Neuts % (Manual) Lymphocytes % (Manual) Monocytes % (Manual) Eosinophils % (Manual) Metamyelocytes % (Man) Abs Neuts (Manual) Differential Comment Toxic Granulation Platelet Estimate Platelet Morphology Smear Path Review Retic Count Absolute Retic PT INR APTT Sodium 143 Potassium 3.6 Chloride 111 H Carbon Dioxide 23.7 Anion Gap 8 BUN 30 H Creatinine 1.25 Estimated GFR 55 L Random Glucose 81 Calcium 7.8 L Prot Corrected Calcium Total Bilirubin 0.6 AST 18 ALT 13 Alkaline Phosphatase 59 Ammonia Total Creatine Kinase Troponin I B-Natriuretic Peptide Total Protein 4.5 L D Albumin 1.8 L D Lipase 40 L Vitamin B12 Folate TSH Urine Color Urine Clarity Urine pH Ur Specific [place] Urine Protein Urine Glucose (UA) Urine Ketones Urine Occult Blood Urine Nitrate Urine Bilirubin Urine Urobilinogen Ur Leukocyte Esterase Urine RBC Urine WBC Amorphous Sediment Urine Bacteria Hyaline Casts Granular Casts Urine Mucus Micro UA Comment Ur Microscopic Review Urine Culture Comments Random Vancomycin RPR Blood Type A Positive Antibody Screen Negative MTS Gel Crossmatch See Detail 01/09/18 01/09/18 03:37 03:37 WBC 10.4 RBC 3.28 L Hgb 10.7 L Hct 30.7 L MCV 93.7 D MCH 32.7 MCHC 34.9 RDW 24.9 H D Plt Count 138 L MPV 9.0 Prelim Diff (Auto) Neut % (Auto) 82.7 H Lymph % (Auto) 6.5 L [place] % (Auto) 6.1 Eos % (Auto) 4.4 H Baso % (Auto) 0.3 Neut # (Auto) 8.6 H Lymph # (Auto) 0.7 L [place] # (Auto) 0.6 Eos # (Auto) 0.5 H Baso # (Auto) 0.0 WBC Differential . Seg Neuts % (Manual) Band Neuts % (Manual) Lymphocytes % (Manual) Monocytes % (Manual) Eosinophils % (Manual) Metamyelocytes % (Man) Abs Neuts (Manual) Differential Comment Auto diff final Toxic Granulation Platelet Estimate Platelet Morphology Smear Path Review Retic Count 1.4 Absolute Retic 44.7 PT INR APTT Sodium 144 Potassium 3.5 Chloride 112 H Carbon Dioxide 24.2 Anion Gap 8 BUN 30 H Creatinine 1.19 Estimated GFR 58 L Random Glucose 88 Calcium 7.3 L* Prot Corrected Calcium 8.7 Total Bilirubin AST ALT Alkaline Phosphatase Ammonia Total Creatine Kinase Troponin I B-Natriuretic Peptide Total Protein 4.7 L Albumin Lipase Vitamin B12 Folate TSH Urine Color Urine Clarity Urine pH Ur Specific [place] Urine Protein Urine Glucose (UA) Urine Ketones Urine Occult Blood Urine Nitrate Urine Bilirubin Urine Urobilinogen Ur Leukocyte Esterase Urine RBC Urine WBC Amorphous Sediment Urine Bacteria Hyaline Casts Granular Casts Urine Mucus Micro UA Comment Ur Microscopic Review Urine Culture Comments Random Vancomycin 26.9 RPR Blood Type Antibody Screen MTS Gel Crossmatch Result Diagrams: 01/09/18 03:37 01/09/18 03:37 Microbiology: Microbiology 01/07/18 09:52 Aerobic Blood Culture - Preliminary Blood - Peripheral No growth in 2 days Anaerobic Blood Culture - Preliminary No growth in 2 days 01/07/18 09:52 Aerobic Blood Culture - Preliminary Blood - Peripheral No growth in 2 days Anaerobic Blood Culture - Preliminary No growth in 2 days Imaging: Abdomen/Pelvis CT 01/07/18 09:46 CONCLUSION: 1. Atherosclerosis. 2. Body wall edema. 3. No evidence for bowel obstruction, free fluid or free air. Chest X-Ray 01/07/18 09:46 CONCLUSION: 1. Chronic senescent changes with stable left basilar atelectasis/scarring. Head CT 01/07/18 09:46 CONCLUSION: 1. Stable atrophy. 2. Right mastoid and middle ear opacification. . 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 Worked in [employer] at [employer]. 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 Supported by 4 adult sons, 2 of whom live near him in [place]. Spiritual: Legal::Patient currently confused unable to make his own decisions. He does have advanced directives dated 2008 naming son Davian, son Edward El as surrogates. Ethical issues impacting care no ethical issues identified Important Contacts: Anthony Alas (Son) [phone] Davian Alas (Son) [phone] Prognosis: This patient was admitted for altered mental status. Thus far workup without clear etiology. He does have multiple chronic medical conditions which all seem to be fairly well controlled. He has had multiple hospitalizations in the past 10 months and generalized decline during this time. He does remain at risk for ongoing complications and setbacks related to advanced age, now debilitated status and ongoing medical issues. . Code Status: Full Code Plan: * Legal decision maker:Patient currently confused unable to make his own decisions. He does have advanced directives sedated 2008 naming son Davian, son Edward lE as surrogates. * Goals: Goals remain aggressive. They understand he is high risk for potential complications and continued decline.Family reporting that patient has been more alert and conversant. Patient`s son Davian states that he has been notified by 1 of the family physicians that they will be contacting Dr. Ornelas to find out if patient can have an Epoetin shot prior to discharge. Jo`s son would like hematology/oncology input prior to discharging patient. * CODE STATUS: Full code * SYMPTOMS: --AMS/confusion-onset 1-2 weeks ago. Worsens at night. Some remote history intact. Otherwise previously cognitively sharp. ? Etiology. CT brain negative. Urinalysis negative for leukocytes esterase and nitrites, culture not indicated. Labs without significant etiology identified, urine negative, blood culture pending. --Abdominal pain-patient poor historian. Reports vague abdominal pain. Abdominal exam essentially benign. CT abdomen negative. * Palliative care will continue to follow during hospital course as condition evolves, to assist patient/decision-maker with understanding of medical conditions, weighing benefits/burdens of treatment options, for clarification of goals of treatment. Additionally will assist with any symptoms of palliative concern Attestation Attestation: To help prompt me to consider important information that might be impacting today's encounter and assessment, information from prior notes written by myself or my colleagues may have been "brought forward" into today's note. My signature on this note, however, is an attestation that I personally performed the exam, history, and/or decision-making noted today, and, unless otherwise indicated, the interactions with patient, family, and staff as well as the review of records all occurred today. I also attest that the listed assessment and stated plan reflect my best clinical judgment today based on the combination of historical information, prior notes, and today's exam/ interactions. When time spent is documented, it refers only to time spent today by the signer, or if indicated, combined time spent today by collaborating physician/nurse practitioner.
[2018-01-10] MEDS ORDERED: Pharmacy Ordered Lab Info OTHER ONE (00:45)
[2018-01-10] MEDS ORDERED: Vancomycin Inj 1,000 MG in Sodium Chlor 0.9% Inj 250 ML IV.SIG SCH (01:00)
[2018-01-10 05:53] VITALS: RESP 18
[2018-01-10 06:26] LABS: Baso % (Auto) 0.2 % (0.0-2.0); Eos # (Auto) 0.4 th/mm3 (0.0-0.4); Eos % (Auto) 5.2 % (0.0-4.0); Hematocrit 28.9 % (39.0-51.0); Hemoglobin 10.2 gm/dL (13.0-17.0); Lymph # (Auto) 0.7 th/mm3 (1.0-4.8); Lymph % (Auto) 9.4 % (9.0-44.0); Mean Corpuscular HGB Conc 35.2 % (32.0-36.0); Mean Corpuscular Hemoglobin 32.9 pg (27.0-34.0); Mean Corpuscular Volume 93.5 fL (80.0-100.0); Mean Platelet Volume 8.5 fL (7.0-11.0); Mono # (Auto) 0.6 th/mm3 (0.0-0.9); Mono % (Auto) 8.2 % (0.0-8.0); Neut # (Auto) 6.1 th/mm3 (1.8-7.7); Platelet Count 108 th/mm3 (150-450); Red Blood Count 3.09 mil/mm3 (4.50-5.90); Red Cell Distribution Width 24.6 % (11.6-17.2)
[2018-01-10] MEDS: Sodium Chloride 0.9% 2 ML Flush BID IV.FLUSH SCH (10:18)
[2018-01-10] MEDS: IMATINIB 400 MG PO SCH (10:18)
[2018-01-10] MEDS: Erythromycin 0.5% Opth Oint 3.5 GM Tube EACH EYE SCH ×2 (10:19→12:11)
--- NOTE | 2018-01-10 10:28 | P.PNFP ---
Subjective Interval history: Patient seen and examined this morning. Patient is alert, talkative and able to follow commands today, much improved from admission. He states he is feeling much better than he was on admission and would like to return to [facility]. Denies fever, chills, nausea, vomiting, abdominal pain, problems urinating, leg pain, leg edema. Of note, the patient's son asking if patient should receive Procrit prior to hospital discharge. Per son, patient usually receives Procrit with transfusions and was wondering if this medication would be of benefit to his father prior to hospital discharge. This medication administration is usually over seen by Dr. Ornelas. <Shiloh Hein - 01/10/18 15:24> Results - Labs Result diagrams: 01/10/18 05:52 01/09/18 03:37 <Arturo Haley - 01/10/18 16:05> Abnormal lab results 01/10/18 Range/Units 05:52 RBC 3.09 L (4.50-5.90) mil/mm3 Hgb 10.2 L (13.0-17.0) gm/dL Hct 28.9 L (39.0-51.0) % RDW 24.6 H (11.6-17.2) % Plt Count 108 L (150-450) th/mm3 Neut % (Auto) 77.0 H (16.0-70.0) % Gordon % (Auto) 8.2 H (0.0-8.0) % Eos % (Auto) 5.2 H (0.0-4.0) % Lymph # (Auto) 0.7 L (1.0-4.8) th/mm3 Short CBC 01/10/18 Range/Units 05:52 WBC 8.0 (4.0-11.0) th/mm3 Hgb 10.2 L (13.0-17.0) gm/dL Hct 28.9 L (39.0-51.0) % Plt Count 108 L (150-450) th/mm3 <Arturo Haley - 01/10/18 16:05> Abnormal lab results 01/10/18 Range/Units 05:52 RBC 3.09 L (4.50-5.90) mil/mm3 Hgb 10.2 L (13.0-17.0) gm/dL Hct 28.9 L (39.0-51.0) % RDW 24.6 H (11.6-17.2) % Plt Count 108 L (150-450) th/mm3 Neut % (Auto) 77.0 H (16.0-70.0) % Gordon % (Auto) 8.2 H (0.0-8.0) % Eos % (Auto) 5.2 H (0.0-4.0) % Lymph # (Auto) 0.7 L (1.0-4.8) th/mm3 Short CBC 01/10/18 Range/Units 05:52 WBC 8.0 (4.0-11.0) th/mm3 Hgb 10.2 L (13.0-17.0) gm/dL Hct 28.9 L (39.0-51.0) % Plt Count 108 L (150-450) th/mm3 <Shiloh Hein - 01/10/18 10:28> Physical Exam Vital signs: Vital Signs 01/09/18 20:00 01/10/18 00:00 01/10/18 02:40 Temperature 97.7 F 97.6 F Pulse Rate 73 73 Respiratory Rate 18 18 16 Blood Pressure 141/87 H 124/64 Pulse Oximetry 98 96 01/10/18 04:00 01/10/18 04:30 01/10/18 08:00 Temperature 97.9 F 98 F Pulse Rate 69 70 69 Respiratory Rate 18 18 Blood Pressure 128/61 118/71 Pulse Oximetry 97 96 01/10/18 09:00 01/10/18 12:00 Temperature 97.5 F L Pulse Rate 69 76 Respiratory Rate 18 Blood Pressure 122/60 Pulse Oximetry 97 Intake & Output 01/09/18 01/10/18 01/10/18 18:59 06:59 18:59 Output Total 400 / 400 200 / 200 325 / 325 Balance -400 / -400 -200 / -200 -325 / -325 Weight 56 kg Output: Urine 400 / 400 200 / 200 325 / 325 Other: # Voids 1 2 # Incontinent Voids 1 1 # Bowel Movements 0 <Arturo Haley - 01/10/18 16:05> Vital Signs 01/09/18 12:00 01/09/18 16:00 01/09/18 20:00 Temperature 97.6 F 97.9 F 97.7 F Pulse Rate 76 69 73 Respiratory Rate 16 16 18 Blood Pressure 106/57 L 118/62 141/87 H Pulse Oximetry 98 99 98 01/10/18 00:00 01/10/18 02:40 01/10/18 04:00 Temperature 97.6 F 97.9 F Pulse Rate 73 69 Respiratory Rate 18 16 18 Blood Pressure 124/64 128/61 Pulse Oximetry 96 97 01/10/18 04:30 01/10/18 08:00 Temperature 98 F Pulse Rate 70 71 Respiratory Rate 18 Blood Pressure 118/71 Pulse Oximetry 96 Intake & Output 01/09/18 01/10/18 01/10/18 18:59 06:59 18:59 Output Total 400 / 400 200 / 200 Balance -400 / -400 -200 / -200 Weight 56 kg Output: Urine 400 / 400 200 / 200 Other: # Voids 1 # Incontinent Voids 1 1 # Bowel Movements 0 <Shiloh Hein 01/10/18 10:28> Narrative: General: Elderly and frail appearing male lying comfortably in bed. Improved complexion. HEENT: Multiple hypertrophic, plaque-like lesions 2-3 cm over the temples, scalp, and side of his face. Skin: Multiple areas of ecchymosis on the arms and upper extremities. CV: Regular rate and rhythm, faint systolic murmur. Respiratory: Breath sounds distant anteriorly, no obvious crackles or rhonchi GI: No tenderness or guarding MSK: No obvious cyanosis or BLE edema. 2+ posterior tibialis and dorsalis pedis pulses bilaterally. Neuro: Patient alert and interactive with examiner. Able to follow commands. Muscle strength 4+/5 in upper and lower extremities. No focal deficits <Shiloh Hein 01/10/18 15:24> - Urinary Catheter Management Straight Cath placed during this visit: no <Arturo Haley 01/10/18 16:05> yes, but has since been removed by the nurse <Shiloh Hein 01/10/18 15:24> Reason for continuing: Not indwelling catheter <Shiloh Hein 01/10/18 10: 28> Insertion date: 01/07/18 <Shiloh Hein 01/10/18 10:28> Insertion time: 11:30 <Shiloh Hein 01/10/18 10:28> Removal date: 01/07/18 <Shiloh Hein - 01/10/18 10:28> Removal time: 11:35 <Shiloh Hein - 01/10/18 10:28> Assessment and Plan - Assessment (1) Acute encephalopathy Code(s): G93.40 - Encephalopathy, unspecified Status: Acute (2) Frailty Code(s): R54 - Age-related physical debility Status: Acute (3) Macrocytic anemia Code(s): D53.9 - Nutritional anemia, unspecified Status: Acute (4) Hypothyroid Code(s): E03.9 - Hypothyroidism, unspecified Status: Chronic (5) Bandemia Code(s): D72.825 - Bandemia Status: Acute (6) History of depression Code(s): Z86.59 - Personal history of other mental and behavioral disorders Status: Chronic (7) Acute on chronic renal insufficiency Code(s): N28.9 - Disorder of kidney and ureter, unspecified; N18.9 - Chronic kidney disease, unspecified Status: Acute (8) Chronic kidney disease Code(s): N18.9 - Chronic kidney disease, unspecified Status: Chronic (9) Dehydration Code(s): E86.0 - Dehydration Status: Resolved (10) Nutrition, metabolism, and development symptoms Code(s): R63.8 - Other symptoms and signs concerning food and fluid intake Status: Acute (11) DVT prophylaxis Status: Acute <TeraArturo encarnacion - 01/10/18 16:05> (1) Acute encephalopathy Code(s): G93.40 - Encephalopathy, unspecified Status: Acute Plan: Much improved from admission. 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 Will need further evaluation outpatient. (2) Frailty Code(s): R54 - Age-related physical debility Status: Acute Plan: Long-term prognosis likely poor. Palliative consulted. Family would like aggressive treatment at this time. Dietary recommends chocolate ensure TID, which will be provided in addition to meals. PT daily (3) Macrocytic anemia Code(s): D53.9 - Nutritional anemia, unspecified Status: Acute Plan: Acute on chronic. Hx of transfusions in the past. Receives ProCrit as outpatient. B12 and folate levels normal. Transfused 2 units PRBC on 01/08 Hgb today 10.2 from 10.7 yesterday, stable. Monitor Hgb daily while in hospital Need to con't hematology outpatient f/u Spoke to patient's oncologist, Dr. Izquierdo, who states that due to patient's stable H&H >7.0, patient will not need procrit at this time. He plans to see patient in the hospital today. (4) Hypothyroid Code(s): E03.9 - Hypothyroidism, unspecified Status: Chronic Plan: Patient with history of hypothyroidism, well controlled on levothyroxine 25 mcg daily. Will continue home medication (5) Bandemia Code(s): D72.825 - Bandemia Status: Acute Plan: Rule out infection source, has been negative so far. Patient started on Vancomycin and Zosyn. Blood cx NG in 2 days. DC'd abx yesterday since blood cultures have been negative x48 hours. Will benefit from outpatient f/u w/neck band setter. (6) History of depression Code(s): Z86.59 - Personal history of other mental and behavioral disorders Status: Chronic Plan: Patient with history of depression, on trazodone 50 mg p.o. daily, mirtazapine 15 mg p.o. daily, and escitalopram 5 mg p.o. daily. Continue to hold trazodone due to sedating effects. Restarted mirtazapine and escitalopram today. (7) Acute on chronic renal insufficiency Code(s): N28.9 - Disorder of kidney and ureter, unspecified; N18.9 - Chronic kidney disease, unspecified Status: Acute Plan: Resolved. (8) Chronic kidney disease Code(s): N18.9 - Chronic kidney disease, unspecified Status: Chronic Plan: Stable, see above plan. (9) Dehydration Code(s): E86.0 - Dehydration Status: Resolved Plan: Resolved. (10) Nutrition, metabolism, and development symptoms Code(s): R63.8 - Other symptoms and signs concerning food and fluid intake Status: Acute Plan: Fluids: None at this time. Ordered Lasix 20mg PO daily. Electrolytes: No notable electrolyte abnormalities at this time. Nutrition: Mech soft, thin liquids, chocolate ensure shakes. (11) DVT prophylaxis Status: Acute Plan: SCDs only. <Shiloh Hein - 01/10/18 15:13> - Assessment and Plan Patient's family agreeable to palliative care consult. Patient son states that the patient is much improved from admission and back to baseline. Okay with return to [facility]. Spoke to case management and completed paperwork for [facility] placement. Anticipate discharge from hospital back to [facility] today. <Shiloh Hein - 01/10/18 15:24> - Attending Attestation Patient case discussed with resident physicians I have independently examined the patient I have read the above note and agree with the assessment and plan as discussed with me I was involved in all medical decision making for this patient Arturo Haley MD <Arturo Haley - 01/10/18 16:05> <Shiloh Hein - Last Filed: 01/10/18 15:13> (4) Hypothyroid Qualifiers: Hypothyroidism type: unspecified Qualified Code(s): E03.9 - Hypothyroidism, unspecified <Arturo Haley - Last Filed: 01/10/18 16:05> (4) Hypothyroid Qualifiers: Hypothyroidism type: unspecified Qualified Code(s): E03.9 - Hypothyroidism, unspecified <Shiloh Hein - Last Filed: 01/10/18 15:13> (4) Hypothyroid Qualifiers: Hypothyroidism type: unspecified Qualified Code(s): E03.9 - Hypothyroidism, unspecified <Arturo Haley - Last Filed: 01/10/18 16:05> (4) Hypothyroid Qualifiers: Hypothyroidism type: unspecified Qualified Code(s): E03.9 - Hypothyroidism, unspecified
[2018-01-10] MEDS ORDERED: Mirtazapine 15 MG Tablet PO SCH (10:45)
[2018-01-10] MEDS ORDERED: Ferrous Sulfate 325 MG Tablet PO SCH (10:45)
[2018-01-10] MEDS ORDERED: Furosemide 20 MG Tablet PO ONE (10:50)
[2018-01-10] MEDS ORDERED: Escitalopram 10 MG Tablet PO SCH (11:00)
[2018-01-10] MEDS ORDERED: Finasteride 5 MG Tablet PO SCH (11:00)
[2018-01-10] MEDS ORDERED: Megestrol Acetate Liq 400 MG/10 ML UDC PO SCH (11:00)
[2018-01-10 12:12] VITALS: BP 122/60; TEMP 97.5; O2SAT 97
--- NOTE | 2018-01-10 13:24 | P.PNPAL ---
Reason for Visit Reason for visit: a. To assist with evaluation and management of symptoms including: AMS b. To assist medical decision maker(s) with: better understanding of current medical conditions; weighing benefits/burdens of medical treatment options; making medical treatment decisions. Subjective Subjective/Interval History: Seen today to follow up on goals, comfort. Pt has remained stable. H%H 10.2/28.9 post transfusion 2 U RBC on 01/08/18. BC no growth to date. Peripheral blood smear from 01/08 =- SEVERE MACROCYTIC ANEMIA. MILD THROMBOCYTOPENIA. Attending may d/w oncology- pt to f/up out patient with oncology. Pt seen in room son Anthony present. Pt is alert, mostly oriented. Does fall asleep at times. Limited insight to hospitalization. Wants to d/c "go back to the [facility]" (lives at [facility]). Review w son recent diagnostics, no specific etiology identified for AMS/confusion. Explore could be multifactorial. Son feels overall pt has improved much in the past couple days. He is hopeful oncology may be able to offer ongoing Epogen injections to help pt anemia. Explore limitations of this injection that pt overall condition remains fragile and that will likely cont to experience anemia. Further explore he may remain at risk for ongoing hospitalizations, complications 2/2 to frail status. Gently explore hospice option if pt reaches a point that he would not want further aggressive/invasive measures. Son indicates they will be discussing further as a family. He wants to try to cont to encourage the pt to get better as long as the pt wants to and sort of "bounces back" and still has a quality of life. Goals remain aggressive. * * Patient reported to have 14+ hospitalizations in the past 1 year, general progressive decline. Of note may have been seen by Dr. Ornelas 11/01 for iron deficiency anemia. He did have an ED presentation from [facility] for reports of confusion and generalized weakness. Not drinking much fluid. Reported to have been transfused 2 units of blood that week due to hemoglobin 7.1. Also underwent EEG endoscopies and plan for endoscopy outpatient. Hemoglobin 8.9. His orientation at ED presentation was a and O x3 son reported it was better. He was ambulatory at that time with a rolling walker, alert and oriented x3. He was also hospitalized 07/09/17 for tachyarrhythmia. He apparently had SVT required cardioversion, also reported to have atrial fibrillation. Required multiple treatments with cardioversion, amiodarone. He had recently seen cardiology for possible ablation. 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 Ornelas. He apparently has had multiple admissions to [facility]. Advance Directives Health Care Surrogate: Copy in medical record Advance Directives Date on File: 01/07/18 Health Care Surrogate Name and Number: Nikko Wren Documented care wishes:: Living will has standard verbiage detailing if terminal, end-stage or persistent vegetative conditions request no artificial measures. Names 2 deirdre Marcelo, Edward El as surrogates. Objective Vital Signs: Vital Signs 01/09/18 16:00 01/09/18 20:00 01/10/18 00:00 Temperature 97.9 F 97.7 F 97.6 F Pulse Rate 69 73 73 Respiratory Rate 16 18 18 Blood Pressure 118/62 141/87 H 124/64 Pulse Oximetry 99 98 96 01/10/18 02:40 01/10/18 04:00 01/10/18 04:30 Temperature 97.9 F Pulse Rate 69 70 Respiratory Rate 16 18 Blood Pressure 128/61 Pulse Oximetry 97 01/10/18 08:00 01/10/18 12:00 Temperature 98 F 97.5 F L Pulse Rate 71 69 Respiratory Rate 18 18 Blood Pressure 118/71 122/60 Pulse Oximetry 96 97 Intake & Output 01/09/18 01/10/18 01/10/18 18:59 06:59 18:59 Output Total 400 / 400 200 / 200 325 / 325 Balance -400 / -400 -200 / -200 -325 / -325 Weight 56 kg Output: Urine 400 / 400 200 / 200 325 / 325 Other: # Voids 1 2 # Incontinent Voids 1 1 # Bowel Movements 0 Physical Exam: CONSTITUTIONAL/GENERAL: This is a frail, chronically ill looking elderly man TUBES/LINES/DRAINS:PIV upper extremity SKIN: No jaundice. 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 large area faint ecchymoses on forearms. Multiple ecchymosis to chest/ torso. No wounds seen anteriorly. Skin warm dry. ENT: [facility]. Nose without bleeding or purulent drainage. Dry oral mucosa NECK: Trachea midline. Supple, nontender. CARDIOVASCULAR: Regular rate and rhythm without murmur. No JVD. Peripheral pulses symmetric. No edema RESPIRATORY/CHEST: Symmetric, unlabored respirations.On room air. Diminished breath sounds bilateral. GASTROINTESTINAL: Abdomen soft,nontender, nondistended. No guarding. Active bowel sounds GENITOURINARY: Without palpable bladder distension. MUSCULOSKELETAL: Extremities without clubbing, cyanosis, or edema. No joint tenderness or effusion noted. No calf tenderness. very thin, muscle atrophy x4 NEUROLOGICAL: Awake, alert . [facility]. Oriented to self, place, family. Able to follow simple commands, cooperative. PSYCHIATRIC: No obvious anxiety/depression. no apparent hallucinations or other psychotic thought process. Diagnostic Tests Laboratory: Laboratory Results - last 72 hr 01/07/18 01/07/18 01/07/18 13:03 16:05 16:05 WBC RBC Hgb Hct MCV MCH MCHC RDW Plt Count MPV Prelim Diff (Auto) Neut % (Auto) Lymph % (Auto) [place] % (Auto) Eos % (Auto) Baso % (Auto) Neut # (Auto) Lymph # (Auto) [place] # (Auto) Eos # (Auto) Baso # (Auto) WBC Differential Seg Neuts % (Manual) Band Neuts % (Manual) Lymphocytes % (Manual) Monocytes % (Manual) Eosinophils % (Manual) Abs Neuts (Manual) Differential Comment Toxic Granulation Platelet Estimate Platelet Morphology Smear Path Review Retic Count Absolute Retic Sodium Potassium Chloride Carbon Dioxide Anion Gap BUN Creatinine Estimated GFR Random Glucose Calcium Prot Corrected Calcium Total Bilirubin AST ALT Alkaline Phosphatase Ammonia 26 Troponin I 0.05 B-Natriuretic Peptide Total Protein Albumin Lipase Vitamin B12 Methylmalonic Acid 0.30 Folate TSH Random Vancomycin RPR Blood Type Antibody Screen MTS Gel Crossmatch 01/07/18 01/07/18 01/08/18 16:05 19:24 08:50 WBC RBC Hgb Hct MCV MCH MCHC RDW Plt Count MPV Prelim Diff (Auto) Neut % (Auto) Lymph % (Auto) [place] % (Auto) Eos % (Auto) Baso % (Auto) Neut # (Auto) Lymph # (Auto) [place] # (Auto) Eos # (Auto) Baso # (Auto) WBC Differential Seg Neuts % (Manual) Band Neuts % (Manual) Lymphocytes % (Manual) Monocytes % (Manual) Eosinophils % (Manual) Abs Neuts (Manual) Differential Comment Toxic Granulation Platelet Estimate Platelet Morphology Smear Path Review Retic Count Absolute Retic Sodium Potassium Chloride Carbon Dioxide Anion Gap BUN Creatinine Estimated GFR Random Glucose Calcium Prot Corrected Calcium Total Bilirubin AST ALT Alkaline Phosphatase Ammonia Troponin I B-Natriuretic Peptide Total Protein Albumin Lipase Vitamin B12 333 Methylmalonic Acid Folate 12.9 TSH 2.490 Random Vancomycin RPR Nonreactive Blood Type Antibody Screen MTS Gel Crossmatch 01/08/18 01/08/18 01/08/18 10:38 10:38 10:38 WBC 9.2 RBC 1.81 L Hgb 6.6 L* D Hct 19.5 L* MCV 108.0 H MCH 36.3 H MCHC 33.6 RDW 17.8 H Plt Count 130 L MPV 8.9 Prelim Diff (Auto) Slide review pending Neut % (Auto) 84.2 H Lymph % (Auto) 5.3 L [place] % (Auto) 7.0 Eos % (Auto) 3.4 Baso % (Auto) 0.1 Neut # (Auto) 7.8 H Lymph # (Auto) 0.5 L [place] # (Auto) 0.6 Eos # (Auto) 0.3 Baso # (Auto) 0.0 WBC Differential Manual diff final Seg Neuts % (Manual) 53 Band Neuts % (Manual) 34 H Lymphocytes % (Manual) 6 L Monocytes % (Manual) 4 Eosinophils % (Manual) 3 Abs Neuts (Manual) 8.0 H Differential Comment . Toxic Granulation 1+ H Platelet Estimate Low L Platelet Morphology Normal Smear Path Review Retic Count Absolute Retic Sodium Cancelled Potassium Cancelled Chloride Cancelled Carbon Dioxide Cancelled Anion Gap Cancelled BUN Cancelled Creatinine Cancelled Estimated GFR Cancelled Random Glucose Cancelled Calcium Cancelled Prot Corrected Calcium Total Bilirubin AST ALT Alkaline Phosphatase Ammonia Troponin I B-Natriuretic Peptide 314 H Total Protein Albumin Lipase Cancelled Vitamin B12 Methylmalonic Acid Folate TSH Random Vancomycin RPR Blood Type Antibody Screen MTS Gel Crossmatch 01/08/18 01/08/18 01/08/18 10:38 10:38 12:11 WBC RBC Hgb Hct MCV MCH MCHC RDW Plt Count MPV Prelim Diff (Auto) Neut % (Auto) Lymph % (Auto) [place] % (Auto) Eos % (Auto) Baso % (Auto) Neut # (Auto) Lymph # (Auto) [place] # (Auto) Eos # (Auto) Baso # (Auto) WBC Differential Seg Neuts % (Manual) Band Neuts % (Manual) Lymphocytes % (Manual) Monocytes % (Manual) Eosinophils % (Manual) Abs Neuts (Manual) Differential Comment Toxic Granulation Platelet Estimate Platelet Morphology Smear Path Review Retic Count Absolute Retic Sodium 143 Potassium 3.6 Chloride 111 H Carbon Dioxide 23.7 Anion Gap 8 BUN 30 H Creatinine 1.25 Estimated GFR 55 L Random Glucose 81 Calcium 7.8 L Prot Corrected Calcium Total Bilirubin 0.6 AST 18 ALT 13 Alkaline Phosphatase 59 Ammonia Troponin I B-Natriuretic Peptide Total Protein 4.5 L D Albumin 1.8 L D Lipase 40 L Vitamin B12 Methylmalonic Acid Folate TSH Random Vancomycin RPR Blood Type A Positive Antibody Screen Negative MTS Gel Crossmatch See Detail 01/08/18 01/09/18 01/09/18 19:55 03:37 03:37 WBC 10.4 RBC 3.28 L Hgb 11.7 L D 10.7 L Hct 34.1 L 30.7 L MCV 93.7 D MCH 32.7 MCHC 34.9 RDW 24.9 H D Plt Count 138 L MPV 9.0 Prelim Diff (Auto) Neut % (Auto) 82.7 H Lymph % (Auto) 6.5 L [place] % (Auto) 6.1 Eos % (Auto) 4.4 H Baso % (Auto) 0.3 Neut # (Auto) 8.6 H Lymph # (Auto) 0.7 L [place] # (Auto) 0.6 Eos # (Auto) 0.5 H Baso # (Auto) 0.0 WBC Differential . Seg Neuts % (Manual) Band Neuts % (Manual) Lymphocytes % (Manual) Monocytes % (Manual) Eosinophils % (Manual) Abs Neuts (Manual) Differential Comment Auto diff final Toxic Granulation Platelet Estimate Platelet Morphology Smear Path Review Retic Count 1.4 Absolute Retic 44.7 Sodium 144 Potassium 3.5 Chloride 112 H Carbon Dioxide 24.2 Anion Gap 8 BUN 30 H Creatinine 1.19 Estimated GFR 58 L Random Glucose 88 Calcium 7.3 L* Prot Corrected Calcium 8.7 Total Bilirubin AST ALT Alkaline Phosphatase Ammonia Troponin I B-Natriuretic Peptide Total Protein 4.7 L Albumin Lipase Vitamin B12 Methylmalonic Acid Folate TSH Random Vancomycin 26.9 RPR Blood Type Antibody Screen MTS Gel Crossmatch 01/10/18 05:52 WBC 8.0 RBC 3.09 L Hgb 10.2 L Hct 28.9 L MCV 93.5 MCH 32.9 MCHC 35.2 RDW 24.6 H Plt Count 108 L MPV 8.5 Prelim Diff (Auto) Neut % (Auto) 77.0 H Lymph % (Auto) 9.4 [place] % (Auto) 8.2 H Eos % (Auto) 5.2 H Baso % (Auto) 0.2 Neut # (Auto) 6.1 Lymph # (Auto) 0.7 L [place] # (Auto) 0.6 Eos # (Auto) 0.4 Baso # (Auto) 0.0 WBC Differential . Seg Neuts % (Manual) Band Neuts % (Manual) Lymphocytes % (Manual) Monocytes % (Manual) Eosinophils % (Manual) Abs Neuts (Manual) Differential Comment Auto diff final Toxic Granulation Platelet Estimate Platelet Morphology Smear Path Review Retic Count Absolute Retic Sodium Potassium Chloride Carbon Dioxide Anion Gap BUN Creatinine Estimated GFR Random Glucose Calcium Prot Corrected Calcium Total Bilirubin AST ALT Alkaline Phosphatase Ammonia Troponin I B-Natriuretic Peptide Total Protein Albumin Lipase Vitamin B12 Methylmalonic Acid Folate TSH Random Vancomycin RPR Blood Type Antibody Screen MTS Gel Crossmatch Result Diagrams: 01/10/18 05:52 01/09/18 03:37 Microbiology: Microbiology 01/07/18 09:52 Aerobic Blood Culture - Preliminary Blood - Peripheral No growth in 3 days Anaerobic Blood Culture - Preliminary No growth in 3 days 01/07/18 09:52 Aerobic Blood Culture - Preliminary Blood - Peripheral No growth in 3 days Anaerobic Blood Culture - Preliminary No growth in 3 days Assessment and Plan - Disease Oriented Problem List (1) Hypothyroid (2) Acute on chronic renal insufficiency (3) Bandemia (4) Altered mental status (5) Dehydration (6) Chronic kidney disease (7) Diffuse abdominal pain (8) Hypertension (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 Supported by 4 adult sons, 2 of whom live near him in [place]. Spiritual: Legal::Patient currently confused unable to make his own decisions. He does have advanced directives dated 2008 naming son Davian, son Edward El as surrogates. Ethical issues impacting care no ethical issues identified Important Contacts: Anthony Alas (Son) [phone] Davian Alas (Son) [phone] Prognosis: This patient was admitted for altered mental status. Thus far workup without clear etiology. He does have multiple chronic medical conditions which all seem to be fairly well controlled. He has had multiple hospitalizations in the past 10 months and generalized decline during this time. He does remain at risk for ongoing complications and setbacks related to advanced age, now debilitated status and ongoing medical issues. . Code Status: Full Code Plan: * Legal decision maker:Patient currently confused unable to make his own decisions. He does have advanced directives sedated 2008 naming son Davian, son Edward El as surrogates. * Goals: Goals remain aggressive. They understand he is high risk for potential complications and continued decline. We have explore hospice option in the future if pt cont to experience decline. Patient`s son would like hematology/oncology input prior to discharging patient. * CODE STATUS: Full code * SYMPTOMS: --AMS/confusion-onset 1-2 weeks ago. Worsens at night. Some remote history intact. Otherwise previously cognitively sharp. ? Etiology. CT brain negative. Urinalysis negative for leukocytes esterase and nitrites, culture not indicated. Labs without significant etiology identified, urine negative, blood culture no growth to date. Confusion, mental status improving, near baseline per son. --Abdominal pain-patient poor historian. Reported vague abdominal pain. Abdominal exam essentially benign. CT abdomen negative. -- malnutrition- decreased PO over several mos. Significantly decreased in past week or 2 secondary to AMS/confusion. Little better intake today, yesterday per son. Needs [id number] rec. Albumin 1.8. Sons providing with outside foods such as smoothies, shakes that he likes to increase caloric intake. If PO intake remains poor this will contribute to continued decline, debility. * Palliative care will continue to follow during hospital course as condition evolves, to assist patient/decision-maker with understanding of medical conditions, weighing benefits/burdens of treatment options, for clarification of goals of treatment. Additionally will assist with any symptoms of palliative concern Attestation Attestation: To help prompt me to consider important information that might be impacting today's encounter and assessment, information from prior notes written by myself or my colleagues may have been "brought forward" into today's note. My signature on this note, however, is an attestation that I personally performed the exam, history, and/or decision-making noted today, and, unless otherwise indicated, the interactions with patient, family, and staff as well as the review of records all occurred today. I also attest that the listed assessment and stated plan reflect my best clinical judgment today based on the combination of historical information, prior notes, and today's exam/ interactions. When time spent is documented, it refers only to time spent today by the signer, or if indicated, combined time spent today by collaborating physician/nurse practitioner.
--- NOTE | 2018-01-10 14:49 | P.DS ---
Date of admission: 01/07/18 13:36 Primary care physician: Bebo Chahal MD Brief History from admission: 87-year-old male living in a [facility] facility brought to the emergency department with altered mental status. He is in the emergency department with 2 of his sons who describe a progressive decline in his mental status over the last 3-4 days. Per his sons, this morning he was very difficult to arouse, very somnolent, and extremely confused so he was brought to the emergency department for further evaluation. He has been somewhat altered over the last 2 -3 weeks with nighttime hallucinations and intermittent confusion associated with decreased appetite. Per the sons, he was relatively well over the weekend prior to the last 2-3 days when he became progressively confused and had worsening hallucinations. He has not eaten very well over the last 3-4 days, only eating small portions of small meals once or twice a day and supplementing with chocolate boost. His sons do endorse decreased appetite with weight loss over the last several months. There is no record of any fevers, he has not complained of chest pain or shortness of breath, there is no record of lower extremity edema or cough/sputum production. Per the son's, over the last year or so he has had multiple hospitalizations with progressive decline in his function as well as worsening mental status. He has had intermittent periods of being lucid and "with it" associated with time of confusion, agitation, and hallucinations with frequent hospitalizations for altered mental status, dehydration, and deconditioning. He recently has seen a new doctor who has been decreasing his medications, medical management. Simplifying his DS: Diagnosis - Discharge Diagnosis (1) Acute encephalopathy Status: Acute Diagnosis: Principal (2) Frailty Status: Acute Diagnosis: Principal (3) Acute on chronic renal insufficiency Status: Acute (4) Macrocytic anemia Status: Acute (5) Hypothyroid Status: Chronic (6) Bandemia Status: Acute (7) Chronic kidney disease Status: Chronic (8) Dehydration Status: Resolved (9) Nutrition, metabolism, and development symptoms Status: Acute (10) DVT prophylaxis Status: Acute DS: Summary Hospital Course: On arrival, patient was started on Vanc and Zosyn in the ED for bandemia. Blood cultures were ordered and once found to be negative after 48 hours, abx were topped. Patient received a liter bolus in the ED but was given another bolus afterwards for suspected dehydration. Patient showed improvement the next day. Acute encephalopathy work-up was negative for thyroid disease, vitamin deficiency, electrolyte or ammonia imbalance, hemorrhage, respiratory/metabolic imbalance, and infection. Medications were held (other than levothyroxine and midodrine) due to concern for aspiration risk. Seen by speech therapy who recommended mechanical diet w/chopped meats and thin liquids. [facility] consulted to evaluate patient for protein malnutrition - recommended supplement w/Boost or Ensure shakes. Seen by palliative, but family opted for continuing aggressive treatment. Patient has a hx of chronic anemia require multiple transfusions. On 01/08, Hgb dropped to 6.6, was transfused w/2 units PRBCs. Patient is not an ideal candidate for gastrointestinal procedure and is already on Protonix 40 mg daily. Therefore, it was decided patient continue to follow up with his patients outpatient for further management. Patient continued to show marked improvement and his other medications, including lasix 20 mg daily, were resumed on discharge day. Son remained at bedside throughout entire stay and asked that Dr. Ornelas be contacted to see if patient can be give Procrit and to bring up other questions. Dr. Ornelas was consulted and agreed to see patient today before d/c. - Time Spent with Patient Total time spent providing and/or coordinating discharge services: Greater than 30 minutes Exam Vital signs: Vital Signs 01/09/18 16:00 01/09/18 20:00 01/10/18 00:00 Temperature 97.9 F 97.7 F 97.6 F Pulse Rate 69 73 73 Respiratory Rate 16 18 18 Blood Pressure 118/62 141/87 H 124/64 Pulse Oximetry 99 98 96 01/10/18 02:40 01/10/18 04:00 01/10/18 04:30 Temperature 97.9 F Pulse Rate 69 70 Respiratory Rate 16 18 Blood Pressure 128/61 Pulse Oximetry 97 01/10/18 08:00 01/10/18 09:00 01/10/18 12:00 Temperature 98 F 97.5 F L Pulse Rate 69 69 76 Respiratory Rate 18 18 Blood Pressure 118/71 122/60 Pulse Oximetry 96 97 Intake & Output 01/09/18 01/10/18 01/10/18 18:59 06:59 18:59 Output Total 400 / 400 200 / 200 325 / 325 Balance -400 / -400 -200 / -200 -325 / -325 Weight 56 kg Output: Urine 400 / 400 200 / 200 325 / 325 Other: # Voids 1 2 # Incontinent Voids 1 1 # Bowel Movements 0 Narrative: General: Elderly and frail appearing male lying in bed, sleeping. Chanda complexion. HEENT: Multiple hypertrophic, plaque-like lesions 2-3 cm over the temples, scalp, and side of his face. Sleeping in bed. Skin: Multiple areas of ecchymosis on the arms and upper extremities. CV: Regular rate and rhythm, faint systolic murmur. Respiratory: Breath sounds distant anteriorly, no obvious crackles or rhonchi GI: No tenderness or guarding MSK: No obvious cyanosis or edema Neuro: No focal deficits Results Procedures completed during hospitalization: None Labs on day of discharge: Labs from last 24 hours 01/10/18 01/07/18 05:52 16:05 WBC 8.0 RBC 3.09 L Hgb 10.2 L Hct 28.9 L MCV 93.5 MCH 32.9 MCHC 35.2 RDW 24.6 H Plt Count 108 L MPV 8.5 Neut % (Auto) 77.0 H Lymph % (Auto) 9.4 Coleman % (Auto) 8.2 H Eos % (Auto) 5.2 H Baso % (Auto) 0.2 Neut # (Auto) 6.1 Lymph # (Auto) 0.7 L Coleman # (Auto) 0.6 Eos # (Auto) 0.4 Baso # (Auto) 0.0 WBC Differential . Differential Comment Auto diff final Methylmalonic Acid 0.30 Preliminary micro results at discharge 01/07/18 09:52 Aerobic Blood Culture - Preliminary Blood - Peripheral No growth in 3 days Anaerobic Blood Culture - Preliminary No growth in 3 days 01/07/18 09:52 Aerobic Blood Culture - Preliminary Blood - Peripheral No growth in 3 days Anaerobic Blood Culture - Preliminary No growth in 3 days - Impressions ITS Impressions Abdomen/Pelvis CT 01/07/18 09:46 CONCLUSION: 1. Atherosclerosis. 2. Body wall edema. 3. No evidence for bowel obstruction, free fluid or free air. Chest X-Ray 01/07/18 09:46 CONCLUSION: 1. Chronic senescent changes with stable left basilar atelectasis/scarring. Head CT 01/07/18 09:46 CONCLUSION: 1. Stable atrophy. 2. Right mastoid and middle ear opacification. . Discharge Plan - Discharge Disposition Patient Disposition: 04 ACLF/ASIF - Discharge Condition Condition: Fair - Discharge Order Discharge Orders: Discharge Order (Routine); Ordered 01/10/18 Ordered By: Eusebia Canales - Discharge Details Anticipated Discharge Date: 01/10/18 Discharge Comment: DC after seen by Dr. Ornelas - Physicians Team Primary Care Provider: Bebo Chahal Attending Provider: Arturo Haley Other Providers: Luma Horton MD ; Chika Ornelas MD
[2018-01-10 16:55] VITALS: PULSE 87
--- NOTE | 2018-01-10 18:15 | MB ---
cc: Cristine Ornelas MD DATE: 01/10/2018 REASON FOR CONSULTATION: Consult requested by Dr. Haley for evaluation of anemia and chronic myeloid leukemia. HISTORY OF PRESENT ILLNESS: Steve is a pleasant, unfortunate 87-year-old male. He was diagnosed with chronic myeloid leukemia in 2001. The patient has been on Gleevec and his leukemia is stable. The patient recently developed renal failure, which has caused anemia and he was getting Procrit as an outpatient. The patient was admitted to the hospital 3 days ago for altered change in mental status. This was metabolic and it has now improved. The patient is ready to be discharged today back to the adult living facility. The patient and son are requesting that he should get Procrit before discharge. Therefore, I have been asked to see him. The patient had received blood transfusion. He is feeling better. He is complaining of generalized weakness, fatigue. His performance status has declined. PAST MEDICAL HISTORY: Chronic myeloid leukemia diagnosed in 2001, chronic renal failure, TIA, hypertension, hypothyroidism, macular degeneration, chronic xerostomia. PAST SURGICAL HISTORY: Pacemaker, upper endoscopy. ALLERGIES: NONE TO MEDICATIONS. MEDICATIONS PRIOR TO COMING TO THE HOSPITAL: 1. Alprazolam. 2. Calcium. 3. Ferrous sulfate. 4. Lasix. 5. Imatinib. 6. Levothyroxine. 7. Midodrine. 8. Zofran 9. B12. 10. Escitalopram. 11. Megace. 12. Mirtazapine. 13. Pantoprazole. 14. Trazodone. 15. Dutasteride. FAMILY HISTORY: Brother from chronic myelomonocytic leukemia and another brother from colon cancer. SOCIAL HISTORY: The patient does not smoke cigarettes, does not drink alcohol. 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 PHYSICAL EXAMINATION: GENERAL: Elderly, frail, white male in no apparent distress. VITAL SIGNS: Temperature 97.5, heart rate is 69, blood pressure 122/60. HEENT: Bitemporal wasting noted. Sclerae erythema noted. He has chronic phlebitis. NECK: No lymphadenopathy. LUNGS: Clear. No wheezing, rhonchi, or rales. HEART: Regular rate and rhythm. ABDOMEN: Soft. EXTREMITIES: No pedal edema. NEUROLOGIC: Awake, alert, oriented x3. SKIN: Multiple bruises and seborrheic keratoses noted. ASSESSMENT AND PLAN: 1. Anemia of chronic renal failure. 2. Chronic renal failure. 3. Chronic myeloid leukemia, diagnosed in 2001. Currently, he is on imatinib and in remission. PLAN: I have reviewed his available records, and I have discussed with the patient and his son regarding the blood test results from today. The white count is 8.0, hemoglobin 10.2, and platelet count is 108. Basic metabolic profile is normal, except chloride 112, BUN is 30, calcium 7.3. GFR is 58. His B12 is 333, folate is 12.9. Given that the hemoglobin is more than 10, patient is not eligible for Procrit. We discussed that if and when his hemoglobin dropped below 10, then we will give him Procrit as an outpatient. He is going to be discharged today back to the adult living facility. I have advised them to make an appointment at our office in 3 to 4 weeks for followup. I have discussed with Dr. Canalse, family practice resident. I have also discussed with the patient's nurse and advised that the patient could be discharged from my standpoint and he does not require any Procrit at this time. Thank you for asking my opinion. MD NARENDRA Fuller/michelet , 04:45 PM , 05:00 PM
== END 2018-01-10 19:08 ==
LOC: NEPC 09:27 → NEDA 13:36 → N05 16:25
PROVIDERS: ADMIT Family Medicine; ATTEND Family Medicine